=== PATIENT | female | born 1945 | race Caucasian/White ===

== ENCOUNTER 2016-11-28 15:42 | Emergency (ER) | payer MEDICARE, MEDICAID ==
[~2016-11-28] VITALS: Ht 162.6 cm; Wt 66.7 kg
[~2016-11-28 15:42] MED LIST: ALPR0.5T72 PO; ATOR40TA70 PO; CARB15DR2 OP; DCS100C PO; HYDR-3063 PO; LORA10TA7 PO; MAGN400T6 PO; NAPR220C11 PO; OXYM30SP NS; PSEU120T62 PO; RT-ALBUINH IH; [UNRECOGNIZED DRUG - CODE] PO
--- OUTSIDE RECORDS SUMMARY | 2016-11-28 15:47 | XMS REPORT ---
Author Author VICTORINA OSUNA [facility] eClinicalWorks Address Unknown Phone Unavailable Care Team Providers Care Inspector Grain Mill Products Name Role Phone VICTORINA OSUNA CP Unavailable Allergies, Adverse Reactions, Alerts Substance Reaction Event Type Sulfamethoxazole Info Not Available Drug Allergy Flagyl Info Not Available Drug Allergy Problems Problem Type Condition Code Onset Dates Condition Status Assessment Vertigo R42 Active Problem Other and unspecified hyperlipidemia 272.4 Active Problem Other chronic pain 338.29 Active Problem PTSD (post-traumatic stress disorder) F43.10 Active Problem Bipolar disorder with severe depression F31.4 Active Problem Unspecified mood [affective] disorder F39 Active Problem Benign paroxysmal positional vertigo 386.11 Active Problem Unspecified curvature of spine associated with other condition 737.9 Active Problem Encounter for dental examination Z01.20 Active Problem Low back pain without sciatica, unspecified back pain laterality M54.5 Active Medications Medication Code System Code Instructions Start Date End Date Status Dosage Refresh Optive [facility] [address]-55 0.5-0.9 % Ophthalmic as needed not defined Ventolin HFA [facility] 49031747985 108MCG/A INHALE ONE PUFF BY MOUTH EVERY 6 HOURS NEEDED Mucus Relief [facility] [address]-54 400 MG Orally every 4 hrs 1 tablet as needed Afrin Nasal [place] [facility] [address]-25 0.05 % Nasally Twice a day as needed 2 drops as needed Hydrocodone-Acetaminophen [facility] [address]-32 10-325 MG Orally 4 times a day December 08, 2014 1 tablet Pseudoephedrine HCl [facility] [address]-55 60 mg Orally every 6 hrs December 29, 2015 2 tablets as needed Tylenol ND 0 500 mg Oral Once a day 0.5 tab Atorvastatin Calcium [facility] 45199210625 40MG TAKE ONE TABLET BY MOUTH ONCE DAILY Senokot [facility] [address]-28 8.6 MG Orally Once a day as needed 1 tablet Alprazolam [facility] [address]-63 0.5 MG Orally twice a day December 08, 2014 1 tablet Loratadine [facility] [address]-51 10 MG Orally Once a day 1 tablet Lyrica [facility] [address]-88 50 mg Orally 2 times a day February 02, 2015 1 capsule Colace [facility] [address]-20 100 MG Orally Once a day as needed 1 capsule as needed Procedures Procedure Coding System Code Date Office Visit, Est Pt., Level 2 CPT-4 01072 May 24, 2016 [facility] VISIT ESTABLISHED PATIENT CPT-4 G0467 May 24, 2016 Vital Signs Date/Time: May 24, 2016 Cardiac Monitoring Heart Rate 76 bpm Weight 146 lbs Height 64 in BMI 25.06 Index Blood Pressure Diastolic 62 mmHg Blood Pressure Systolic 98 mmHg Results No Known Results Summary Purpose eClinicalWorks Submission
[2016-11-28] MEDS ORDERED: FAMOTIDINE 20MG/2ML IV (PEPCID) IVP ONE (16:15)
[2016-11-28 16:42] LABS: BILIRUBIN,URINE NEGATIVE (NEGATIVE); KETONES,URINE 1+ (NEGATIVE); LEUKOCYTE ESTERASE ,URINE 2+ (NEGATIVE); NITRITE,URINE NEGATIVE (NEGATIVE); PH,URINE 6 (5-9); PROTEIN,URINE NEGATIVE (NEGATIVE); UROBILINOGEN,URINE NORMAL (NORMAL)
[2016-11-28 16:55] LABS: SQUAMOUS EPITHELIAL CELL,UR 0-2 /HPF
[2016-11-28 17:14] LABS: BASOPHILS % (AUTO) 0 % (0-10); EOSINOPHILS # (AUTO) 0.1 10^3/uL (0.0-0.3); EOSINOPHILS % (AUTO) 1 % (0-10); LYMPHOCYTES # (AUTO) 0.9 X 10^3 (1.0-4.0); LYMPHOCYTES % (AUTO) 6 % (12-44); MEAN CORPUSCULAR HEMOGLOBIN 30 PG (25-34); MEAN CORPUSCULAR HGB CONC 34 G/DL (32-36); MEAN CORPUSCULAR VOLUME 90 FL (80-99); MEAN PLATELET VOLUME 11.2 FL (7.4-10.4); MONOCYTES # (AUTO) 0.5 X 10^3 (0.0-1.0); MONOCYTES % (AUTO) 3 % (0-12); NEUTROPHILS # (AUTO) 14.3 X 10^3 (1.8-7.8); NEUTROPHILS % (AUTO) 90 % (42-75); PLATELET COUNT 158 10^3/uL (130-400); RED BLOOD COUNT 4.67 10^6/uL (4.35-5.85); RED CELL DISTRIBUTION WIDTH 12.7 % (10.0-14.5); WHITE BLOOD COUNT 15.9 10^3/uL (4.3-11.0)
--- NOTE | 2016-11-28 17:27 | ED GI ---
General Chief Complaint: Abdominal/GI Problems Stated Complaint: N/V/D Nursing Triage Note: to ER by [facility] with reports of nausea. EMS administered 4mg Zofran and 1L NS FOREST NURSERY SUPERVISOR. Sepsis Screen: No Definite Risk Source of Information: Patient, EMS, RN Notes Reviewed Exam Limitations: No Limitations History of Present Illness Time Seen By Provider: 16:05 Initial Comments above and below. Patient's primary compliant is N/V; flu like symptoms. Denied diarrhea to me. Timing/Duration: 24 Hours Severity/Quality: Moderate Location: Epigastric Radiation: No Radiation Activities at Onset: None Modifying Factors: Worsens With Vomiting Associated Symptoms: Nausea/Vomiting, Weakness Allergies and Home Medications Allergies Coded Allergies: No Known Drug Allergies (Unverified , 10/23/14) Home Medications Albuterol Sulfate 1 Puff Puff, 1 PUFF IH NEEDED, (Reported) MDI Alprazolam 0.5 Mg Tab.rapdis, 1 EACH PO BID, (Reported) Atorvastatin Calcium 40 Mg Tablet, 40 MG PO DAILY, (Reported) Carboxymethylcellulos/Glycerin 5 Ml Drops, 5 ML OP NEEDED, (Reported) Ciprofloxacin HCl 500 Mg Tablet, 500 MG PO Q12H, #6 Ref 0 Prescribed by: ESTHER LÓPEZ on 11/28/161755 Docusate Sodium 100 Mg Cap, 100 MG PO NEEDED, (Reported) Famotidine 20 Mg Tablet, 20 MG PO BID, #10 Ref 0 Prescribed by: ESTHER LÓPEZ on 11/28/161755 Hydrocodone Bit/Acetaminophen 1 Each Tablet, 1 EACH PO QID, (Reported) Loratadine 10 Mg Tablet, 10 MG PO DAILY, (Reported) Magnesium Oxide 400 Mg Tablet, 2 EACH PO NEEDED, (Reported) Naproxen Sodium 220 Mg Capsule, 220 MG PO NEEDED, (Reported) Ondansetron HCl 4 Mg Tab, 4 MG PO Q6H PRN for NAUSEA/VOMITING, #10 Ref 0 Prescribed by: ESTHER LÓPEZ on 11/28/161755 Oxymetazoline Hcl 15 Ml [place], 2-3 SPRAY NS PER PACKAGE INSTR, (Reported) Pseudoephedrine Hcl 120 Mg Tablet.sa, 120 MG PO DAILY, (Reported) Sennosides 8.6 Mg Tablet, 8.6 MG PO NEEDED, (Reported) Review of Systems Constitutional: see HPI, weakness Gastrointestinal: See HPI, Denies Diarrhea, Nausea, Vomiting All Other Systems Reviewed Negative Unless Noted: Yes (Negative excepted noted.) Past Ifcdwib-Uutrch-Ljcgwi Hx Patient Social History Alcohol Use: Denies Use Recreational Drug Use: No Smoking Status: Never a Smoker 2nd Hand Smoke Exposure: No Recent Foreign Travel: No Contact w/Someone Who Travel: No Recent Infectious Disease Expo: No Recent Hopitalizations: No Immunizations Up To Date Tetanus Booster (TDap): Unknown Date of Pneumonia Vaccine: Oct 23, 2009 Seasonal Allergies Seasonal Allergies: Yes Surgeries HX Surgeries: Yes Surgeries: Bladder Surgery, Bowel Surgery, Hysterectomy Respiratory Hx Respiratory Disorders: Yes (asthma) Respiratory Disorders: COPD Cardiovascular Hx Cardiac Disorders: No Neurological Hx Neurological Disorders: No Gastrointestinal Hx Gastrointestinal Disorders: No Musculoskeletal Hx Musculoskeletal Disorders: Yes (arthritis) Endocrine Hx Endocrine Disorders: No Physical Exam Vital Signs Capillary Refill : Less Than 3 Seconds General Appearance: WD/WN, no apparent distress HEENT: normal ENT inspection Neck: normal inspection Respiratory: no respiratory distress Cardiovascular: regular rate, rhythm Gastrointestinal: soft, No guarding, No rebound, tenderness (mild; epigastric) Rectal: deferred Neurologic/Psychiatric: no motor/sensory deficits, alert, oriented x 3 Skin: warm/dry Focused Exam Lactic Acid Level Progress/Results/Core Measures Results/Orders Lab Results Laboratory Tests Test 11/28/16 16:30 11/28/16 17:02 Range/Units Urine Color YELLOW Urine Clarity CLEAR Urine pH 6 5-9 Urine Specific [place] 1.020 1.016-1.022 Urine Protein NEGATIVE NEGATIVE Urine Glucose (UA) NEGATIVE NEGATIVE Urine Ketones 1+ H NEGATIVE Urine Nitrite NEGATIVE NEGATIVE Urine Bilirubin NEGATIVE NEGATIVE Urine Urobilinogen NORMAL NORMAL MG/DL Urine Leukocyte Esterase 2+ H NEGATIVE Urine RBC (Auto) NEGATIVE NEGATIVE Urine RBC NONE /HPF Urine WBC 2-5 /HPF Urine Squamous Epithelial Cells 0-2 /HPF Urine Crystals NONE /LPF Urine Bacteria TRACE /HPF Urine Casts NONE /LPF Urine Mucus NEGATIVE /LPF Urine Culture Indicated NO White Blood Count 15.9 H 4.3-11.0 10^3/uL Red Blood Count 4.67 4.35-5.85 10^6/uL Hemoglobin 14.1 11.5-16.0 G/DL Hematocrit 42 35-52 % Mean Corpuscular Volume 90 80-99 FL Mean Corpuscular Hemoglobin 30 25-34 PG Mean Corpuscular Hemoglobin Concent 34 32-36 G/DL Red Cell Distribution Width 12.7 10.0-14.5 % Platelet Count 158 130-400 10^3/uL Mean Platelet Volume 11.2 H 7.4-10.4 FL Neutrophils (%) (Auto) 90 H 42-75 % Lymphocytes (%) (Auto) 6 L 12-44 % Monocytes (%) (Auto) 3 0-12 % Eosinophils (%) (Auto) 1 0-10 % Basophils (%) (Auto) 0 0-10 % Neutrophils # (Auto) 14.3 H 1.8-7.8 X 10^3 Lymphocytes # (Auto) 0.9 L 1.0-4.0 X 10^3 Monocytes # (Auto) 0.5 0.0-1.0 X 10^3 Eosinophils # (Auto) 0.1 0.0-0.3 10^3/uL Basophils # (Auto) 0.0 0.0-0.1 10^3/uL Neutrophils % (Manual) 88 % Lymphocytes % (Manual) 7 % Monocytes % (Manual) 1 % Eosinophils % (Manual) 0 % Basophils % (Manual) 0 % Band Neutrophils 4 % Blood Morphology Comment NORMAL Sodium Level 144 135-145 MMOL/L Potassium Level 4.2 3.6-5.0 MMOL/L Chloride Level 111 H 98-107 MMOL/L Carbon Dioxide Level 22 21-32 MMOL/L Anion Gap 11 5-14 MMOL/L Blood Urea Nitrogen 18 7-18 MG/DL Creatinine 0.86 0.60-1.30 MG/DL Estimat Glomerular Filtration Rate > 60 BUN/Creatinine Ratio 21 Glucose Level 107 H 70-105 MG/DL Calcium Level 8.9 8.5-10.1 MG/DL Total Bilirubin 0.8 0.1-1.0 MG/DL Aspartate Amino Transf (AST/SGOT) 18 5-34 U/L Alanine Aminotransferase (ALT/SGPT) 14 0-55 U/L Alkaline Phosphatase 74 40-136 U/L Total Protein 6.5 6.4-8.2 G/DL Albumin 4.1 3.2-4.5 G/DL Lipase 32 8-78 U/L Micro Results Microbiology 11/28/16 Influenza Types A,B Antigen (MARLA) - Final, Complete My Orders Orders - ESTHER LÓPEZ DO Cbc With Automated Diff (11/28/16 16:05) Comprehensive Metabolic Panel (11/28/16 16:05) Lipase (11/28/16 16:05) Ua Culture If Indicated (11/28/16 16:05) Influenza A And B Antigens (11/28/16 16:05) Famotidine Injection (Pepcid Injection) (11/28/16 16:15) Manual Differential (11/28/16 17:02) Iv Push Notching Press Operator Ed (11/28/16 ) Medications Given in ED Vital Signs/I&O Blood Pressure Mean: 101 Departure Impression Impression: Primary Impression: Gastritis Additional Impression: Nausea and vomiting Disposition: HOME, SELF-CARE Condition: Improved Departure-Patient Inst. Decision time for Depature: 17:53 Referrals: [facility] (PCP) Primary Care Physician VICTORINA OSUNA (Family) Primary Care Physician Patient Instructions: Gastritis (DC) Scripts Famotidine (Pepcid) 20 Mg Tablet 20 MG PO BID, #10 TAB 0 Refills Prov: ESTHER LÓPEZ DO 11/28/16 Ondansetron HCl (Zofran) 4 Mg Tab 4 MG PO Q6H Y for NAUSEA/VOMITING, #10 TAB 0 Refills Prov: ESTHER LÓPEZ DO 11/28/16 Ciprofloxacin HCl (Cipro) 500 Mg Tablet 500 MG PO Q12H, #6 TAB 0 Refills Prov: ESTHER LÓPEZ DO 11/28/16 ESTHER LÓPEZ DO Nov 28, 2016 17:27
[2016-11-28 17:30] LABS: ALANINE AMINOTRANSFERASE 14 U/L (0-55); ALBUMIN 4.1 G/DL (3.2-4.5); ANION GAP 11 MMOL/L (5-14); ASPARTATE AMINO TRANSFERASE 18 U/L (5-34); BILIRUBIN,TOTAL 0.8 MG/DL (0.1-1.0); BLOOD UREA NITROGEN 18 MG/DL (7-18); BUN/CREATININE RATIO 21; CALCIUM 8.9 MG/DL (8.5-10.1); CARBON DIOXIDE 22 MMOL/L (21-32); CHLORIDE 111 MMOL/L (98-107); CREATININE SERUM 0.86 MG/DL (0.60-1.30); GFR ESTIMATED > 60; GLUCOSE 107 MG/DL (70-105); LIPASE 32 U/L (8-78); POTASSIUM 4.2 MMOL/L (3.6-5.0); SODIUM 144 MMOL/L (135-145); TOTAL PROTEIN 6.5 G/DL (6.4-8.2)
[2016-11-28] MEDS ORDERED: CIPR-225 PO (17:56)
[2016-11-28] MEDS ORDERED: ONDN4T PO (17:56)
[2016-11-28] MEDS ORDERED: FAMO-119 PO (17:56)
[2016-11-28 18:08] VITALS: BP 130/80
[2016-11-28 18:27] LABS: BAND NEUTROPHILS 4 %; BASOPHILS % (MANUAL) 0 %; EOSINOPHILS % (MANUAL) 0 %; LYMPHOCYTES % (MANUAL) 7 %; NEUTROPHILS % (MANUAL) 88 %
== END 2016-11-28 18:08 | disposition home or self-care (01) ==
LOC: EDUNIT# 15:42 → ER 15:43
DX: R11.2 Nausea with vomiting, unspecified (principal); R19.7 Diarrhea, unspecified; H44.9 Unspecified disorder of globe; Z79.899 Other long term (current) drug therapy
CPT/HCPCS: 36415; 80053; 81000; 83690; 85007; 85027; 87804; 96374

== ENCOUNTER → 2017-01-31 | Outpatient (CLI) | payer MEDICARE, MEDICAID ==
[~2017-01-31] MED LIST changes: +CIPR-225 PO; +FAMO-119 PO; +ONDN4T PO
== END ==
LOC: RAD 10:49
PROVIDERS: ATTEND Nurse Practitioner Community Health
DX: Z12.31 Encounter for screening mammogram for malignant neoplasm of breast (principal)
CPT/HCPCS: 77067

== ENCOUNTER 2017-11-18 04:56 | Emergency (ER) | payer MEDICARE, MEDICAID ==
[~2017-11-18] VITALS: Ht 162.6 cm; Wt 64.9 kg
--- OUTSIDE RECORDS SUMMARY | 2017-11-18 05:02 | XMS REPORT ---
Author Author VICTORINA OSUNA [facility] eClinicalWorks Address Unknown Phone Unavailable Care Team Providers Care Certified Wellness Program Manager Name Role Phone VICTORINA OSUNA CP Unavailable [...] Date End Date Status Dosage Refresh Optive [facility] [address]-40 0.5-0.9 % Ophthalmic as needed not defined Ventolin HFA [facility] 64261432641 108MCG/A INHALE ONE PUFF BY MOUTH EVERY 6 HOURS NEEDED Mucus Relief [facility] [address]-02 400 MG Orally every 4 hrs 1 tablet as needed Afrin Nasal [place] [facility] [address]-79 0.05 % Nasally Twice a day as needed 2 drops as needed Hydrocodone-Acetaminophen [facility] [address]-00 10-325 MG Orally 4 times a day December 08, 2014 1 tablet Pseudoephedrine HCl [facility] [address]-69 60 mg Orally every 6 hrs December 29, 2015 2 tablets as needed Tylenol ND 0 500 mg Oral Once a day 0.5 tab Atorvastatin Calcium [facility] 30434649173 40MG TAKE ONE TABLET BY MOUTH ONCE DAILY Senokot [facility] [address]-01 8.6 MG Orally Once a day as needed [address] [facility] [address]-70 0.5 MG Orally twice a day December 08, [address] [facility] [address]-01 10 MG Orally Once a day [address] [facility] [address]-24 50 mg Orally 2 times a day February 02, [address] [facility] [address]-44 100 MG Orally Once a day as needed 1 capsule as needed Procedures Procedure Coding System Code Date Office Visit, Est Pt., Level 2 CPT-4 71705 May 24, 2016 [facility] VISIT ESTABLISHED PATIENT CPT-4 G0467 May 24, 2016 Vital Signs Date/Time: May 24, 2016 Cardiac Monitoring Heart Rate 76 bpm Weight 146 lbs Height 64 in BMI 25.06 Index Blood Pressure Diastolic 62 mmHg Blood Pressure Systolic 98 mmHg Results No Known Results Summary Purpose eClinicalWorks Submission
--- OUTSIDE RECORDS SUMMARY | 2017-11-18 05:02 | XMS REPORT ---
Author Author VICTORINA OSUNA [facility] Address [address] [place] [address] Care Team Providers Care Nuclear Power Plant Engineer Name Role Phone VICTORINA OSUNA Unavailable PROBLEMS Type Condition ICD9-CM Code OMC25-DT Code Onset Dates Condition Status SNOMED Code Problem Unspecified mood [affective] disorder F39 Active 486591761 Problem Somnolence R40.0 Active 284991466 Problem Sinusitis, unspecified chronicity, unspecified location J32.9 Active 02152916 Problem Other chronic pain G89.29 Active 88963237 Problem Mononeuropathy, unspecified G58.9 Active 804002137 Problem Medicare annual wellness visit, initial Z00.00 Active 318893767 Problem Dysthymic disorder F34.1 Active 55091426 Problem Reactive airway disease, unspecified asthma severity, uncomplicated J45.909 Active 251238349333 Problem History of colon polyps Z86.010 Active 986292176 Problem Low back pain without sciatica, unspecified back pain laterality M54.5 Active 340428879 Problem Encounter for dental examination Z01.20 Active 840080786 Problem Bipolar disorder with severe depression F31.4 Active 702242500 Problem Mixed hyperlipidemia E78.2 Active 062040677 Problem PTSD (post-traumatic stress disorder) F43.10 Active 01709441 ALLERGIES Substance Reaction Event Type Date Status Sulfamethoxazole-Trimethoprim Unknown Drug Allergy January, Active Flagyl Unknown Drug Allergy January, Active SOCIAL HISTORY Never Assessed PLAN OF CARE Activity Details Follow Up annually for preventive care, sooner for chronic health maintenance , 4 Weeks Reason:back pain VITAL SIGNS Height 64 in 2017-01-25 Weight 146.4 lbs 2017-01-25 Temperature 97.3 degrees Fahrenheit 2017-01-25 Heart Rate 60 bpm 2017-01-25 Respiratory Rate 18 2017-01-25 BMI 25.13 kg/m2 2017-01-25 Blood pressure systolic 100 mmHg 2017-01-25 Blood pressure diastolic 70 mmHg 2017-01-25 MEDICATIONS Medication Instructions Dosage Frequency Start Date End Date Duration Status Atorvastatin Calcium 40 MG TAKE ONE TABLET BY MOUTH ONCE DAILY 30 Active Afrin Nasal [place] 0.05 % Nasally Twice a day as needed 2 drops as needed Active Mucus Relief 400 MG Orally every 4 hrs 1 tablet as needed 4h Active Refresh Optive 0.5-0.9 % Ophthalmic as needed Active Alprazolam 0.5 MG Orally Twice a day 1 tablet as needed 12h 28 Jul, 2016 28 days Active Senokot 8.6 MG Orally Once a day as needed 1 tablet Active Tylenol 500 mg Oral Once a day 0.5 tab 24h Active Ventolin HFA 108MCG/A INHALE ONE PUFF BY MOUTH EVERY 6 HOURS NEEDED 50 Active Hydrocodone-Acetaminophen 10-325 MG Orally 4 times a day 1 tablet as needed 6h Nov, 28 days Active Loratadine 10 MG Orally Once a day 1 tablet 24h Active Lyrica 50 MG Orally 2 times a day 1 capsule 12h January, 28 days Active Pseudoephedrine HCl 60 MG Orally every 6 hrs 2 tablets as needed 6h 12 Dec 07 days Active RESULTS Name Result Date Reference Range Mammogram, Bilateral Screening 2017-01-31 PROCEDURES Procedure Date Ordered Result Body Site ANNUAL LAURI VST; PERSNL PPS INIT January 25, 2017 IMMUNIZATIONS No Known Immunizations MEDICAL (GENERAL) HISTORY Type Description Date Medical History colonic polyps Medical History asthma Medical History diverticulosis Medical History Arthritis Medical History chronic pain Medical History scoliosis Medical History degenerative disease lumbosacral spine Medical History depression Medical History Anxiety disorder Medical History Eye: holes in retina, macular hole, hx of cataracts, prerenital membrane bialt, photocoagualtion bilaterade ([place]hend) Medical History osteopenia: bone density 06-01-10 Medical History Low blood pressure Surgical History cataract removal 2013 Surgical History colonoscopy 2010 Surgical History cholecystectomy Surgical History sinus surgery 2011 Surgical History appendectomy 1974 Surgical History rectocele repair w/ transvaginal mesh Surgical History hysterectomy Surgical History colon resection Surgical History cataract surgery both eyes 03/2015 Hospitalization History surgeries
--- OUTSIDE RECORDS SUMMARY | 2017-11-18 05:02 | XMS REPORT ---
Author Author VICTORINA OSUNA [facility] Address [address] [place] [address] Care Team Providers Care Oral Surgery Technician Name Role Phone VICTORINA OSUNA Unavailable PROBLEMS Type Condition ICD9-CM Code QWY10-FD Code Onset Dates Condition Status SNOMED Code Problem Unspecified mood [affective] disorder F39 Active 464537958 Problem Somnolence R40.0 Active 678882156 Problem Sinusitis, unspecified chronicity, unspecified location J32.9 Active 27796799 Problem Other chronic pain G89.29 Active 89432461 Problem Mononeuropathy, unspecified G58.9 Active 727150356 Problem Medicare annual wellness visit, initial Z00.00 Active 156289404 Problem Dysthymic disorder F34.1 Active 93252149 Problem Reactive airway disease, unspecified asthma severity, uncomplicated J45.909 Active 975372557408 Problem History of colon polyps Z86.010 Active 976247794 Problem Low back pain without sciatica, unspecified back pain laterality M54.5 Active 090032138 Problem Encounter for dental examination Z01.20 Active 562256113 Problem Bipolar disorder with severe depression F31.4 Active 669542813 Problem Mixed hyperlipidemia E78.2 Active 800744517 Problem PTSD (post-traumatic stress disorder) F43.10 Active 82624875 ALLERGIES No Information SOCIAL HISTORY Never Assessed PLAN OF CARE VITAL SIGNS MEDICATIONS Medication Instructions Dosage Frequency Start Date End Date Duration Status Neurontin 100 mg Orally at bedtime 1 tablet Feb, 30 days Active RESULTS No Results PROCEDURES No Known procedures IMMUNIZATIONS No Known Immunizations MEDICAL (GENERAL) HISTORY [...]
--- OUTSIDE RECORDS SUMMARY | 2017-11-18 05:02 | XMS REPORT ---
Author Author VICTORINA OSUNA Organization eClinicalWorks Address Unknown Phone Unavailable Care Team Providers Care Cigar Machine Feeder Name Role Phone VICTORINA OSUNA CP Unavailable Allergies No Known Allergies Problems Problem Type Condition Code Onset Dates Condition Status Assessment Back pain 724.5 Active Problem Other and unspecified hyperlipidemia 272.4 Active Problem Other chronic pain 338.29 Active Assessment Low back pain without sciatica, unspecified back pain laterality M54.5 Active Problem PTSD (post-traumatic stress disorder) F43.10 [...] Instructions Start Date End Date Status Dosage Lyrica [facility] [address]-53 50 mg Orally Twice a day February 02, 2015 1 capsule Results No Known Results Summary Purpose eClinicalWorks Submission
--- OUTSIDE RECORDS SUMMARY | 2017-11-18 05:03 | XMS REPORT ---
Author Author VICTORINA OSUNA Organization eClinicalWorks Address Unknown Phone Unavailable Care Team Providers Care Planning Intern Name Role Phone VICTORINA OSUNA CP Unavailable Allergies No Known Allergies Problems Problem Type Condition Code Onset Dates Condition Status Problem Other chronic pain 338.29 Active Problem Unspecified curvature of spine associated with other condition 737.9 Active Problem Other and unspecified hyperlipidemia 272.4 Active Problem Unspecified mood [affective] disorder F39 Active Problem PTSD (post-traumatic stress disorder) F43.10 Active Problem Sinusitis, unspecified chronicity, unspecified location J32.9 Active Problem Low back pain without sciatica, unspecified back pain laterality M54.5 Active Problem Benign paroxysmal positional vertigo 386.11 Active Problem Bipolar disorder with severe depression F31.4 Active Problem Encounter for dental examination Z01.20 Active Medications Medication Code System Code Instructions Start Date End Date Status Dosage Pseudoephedrine HCl [facility] [address]-27 60 mg Orally every 6 hrs December 29, 2015 2 tablets as needed Results No Known Results Summary Purpose eClinicalWorks Submission
--- OUTSIDE RECORDS SUMMARY | 2017-11-18 05:03 | XMS REPORT ---
Author Author VICTORINA OSUNA [facility] eClinicalWorks Address Unknown Phone Unavailable Care Team Providers Care Breast Buffer Name Role Phone VICTORINA OSUNA CP Unavailable Allergies, Adverse Reactions, Alerts Substance Reaction Event Type Sulfamethoxazole Info Not Available Drug Allergy Flagyl Info Not Available Drug Allergy Problems Problem Type Condition Code Onset Dates Condition Status Problem Other chronic pain 338.29 Active Problem Unspecified curvature of spine associated with other condition 737.9 Active Problem Other and unspecified hyperlipidemia 272.4 Active Assessment Bronchitis J40 Active Assessment Sinusitis, unspecified chronicity, unspecified location J32.9 Active Problem Unspecified mood [affective] disorder F39 [...] Start Date End Date Status Dosage Lyrica [facility] [address]-61 50 mg Orally 2 times a day February 02, 2015 1 capsule Hydrocodone-Acetaminophen [facility] [address]-13 10-325 MG Orally 4 times a day December 08, [address] [facility] [address]-77 100 MG Orally Once a day as needed 1 capsule as needed Pseudoephedrine HCl [facility] [address]-93 60 mg Orally every 6 hrs December 29, 2015 2 tablets as needed Alprazolam [facility] [address]-49 0.5 MG Orally twice a day December 08, 2014 1 tablet Mucus Relief [facility] [address]-23 400 MG Orally every 4 hrs 1 tablet as needed Tylenol [facility] 0 500 mg Oral Once a day 0.5 tab Refresh Optive [facility] [address]-46 0.5-0.9 % Ophthalmic as needed not defined Loratadine [facility] [address]-19 10 MG Orally Once a day [address] [facility] [address]-27 500 MG Orally Once a day Jul 11, 2016 Jul 21, 2016 1 tablet Ventolin HFA [facility] 54307803918 108MCG/A INHALE ONE PUFF BY MOUTH EVERY 6 HOURS NEEDED Atorvastatin Calcium [facility] [address]-83 40MG TAKE ONE TABLET BY MOUTH ONCE DAILY Senokot [facility] [address]-54 8.6 MG Orally Once a day as needed 1 tablet Procedures Procedure Coding System Code Date Office Visit, Est Pt., Level 3 CPT-4 41022 Jul 11, 2016 [facility] VISIT ESTABLISHED PATIENT CPT-4 G0467 Jul 11, 2016 Vital Signs Date/Time: Jul 11, 2016 Cardiac Monitoring Heart Rate 72 bpm Weight 146.5 lbs Height 64 in BMI 25.14 Index Blood Pressure Diastolic 66 mmHg Blood Pressure Systolic 108 mmHg Results No Known Results Summary Purpose eClinicalWorks Submission
--- OUTSIDE RECORDS SUMMARY | 2017-11-18 05:03 | XMS REPORT ---
Author Author VICTORINA OSUNA Organization eClinicalWorks Address Unknown Phone Unavailable Care Team Providers Care Maintenance Mechanic 2Nd Shift Name Role Phone VICTORINA OSUNA CP Unavailable Allergies No Known Allergies Problems Problem Type Condition Code Onset Dates Condition Status Problem Benign paroxysmal positional vertigo 386.11 Active Problem Unspecified curvature of spine associated with other condition 737.9 Active Problem Major depressive disorder, recurrent episode, moderate F33.1 Active Problem Other and unspecified hyperlipidemia 272.4 Active Problem Other chronic pain 338.29 Active Medications Medication Code System Code Instructions Start Date End Date Status Dosage Alprazolam [facility] [address]-70 0.5 MG December 08, 2014 1 Tablet by Oral route 2 times per day Hydrocodone-Acetaminophen [facility] [address]-83 10-325 MG Orally December 08, 2014 1 Tablet by Oral route 4 times per day PRN for pain Results No Known Results Summary Purpose eClinicalWorks Submission
--- OUTSIDE RECORDS SUMMARY | 2017-11-18 05:03 | XMS REPORT ---
Author Author VICTORINA OSUNA Organization [employer] Address Unknown Phone Unavailable Care Team Providers Care Meter Mechanic Name Role Phone VICTORINA OSUNA CP Unavailable Allergies No Known Allergies Problems Problem Type Condition Code Onset Dates Condition Status Problem Other and unspecified hyperlipidemia 272.4 Active [...] unspecified back pain laterality M54.5 Active Medications No Known Medications Results No Known Results Summary Purpose eClinicalWorks Submission
--- OUTSIDE RECORDS SUMMARY | 2017-11-18 05:03 | XMS REPORT ---
Author Author VICTORINA OSUNA Organization [employer] Address Unknown Phone Unavailable Care Team Providers Care Head Bucker Name Role Phone VICTORINA OSUNA CP Unavailable [...] Start Date End Date Status Dosage Alprazolam [facility] [address]-95 0.5 MG Orally twice a day December 08, 2014 1 tablet Hydrocodone-Acetaminophen [facility] [address]-41 10-325 MG Orally 4 times a day December 08, 2014 1 tablet Results No Known Results Summary Purpose eClinicalWorks Submission
--- OUTSIDE RECORDS SUMMARY | 2017-11-18 05:03 | XMS REPORT ---
Author Author VICTORINA OSUNA Organization [employer] Address Unknown Phone Unavailable Care Team Providers Care Fire Protection Engineering Technician Name Role Phone VICTORINA OSUNA CP Unavailable Allergies No Known Allergies Problems Problem Type Condition ICD-9 Code Onset Dates Condition Status Problem Benign paroxysmal positional vertigo 386.11 Active Problem Unspecified curvature of spine associated with other condition 737.9 Active Problem Dysthymic disorder 300.4 Active Problem Other chronic pain 338.29 Active Assessment Back pain 724.5 Active Problem Major depressive disorder, recurrent episode, moderate 296.32 Active Problem Other and unspecified hyperlipidemia 272.4 Active Medications No Known Medications Procedures Procedure Coding System Code Date No Charge CPT-4 07960 May 18, 2015 Results No Known Results Summary Purpose [employer]ClinicalWorks Submission
--- OUTSIDE RECORDS SUMMARY | 2017-11-18 05:03 | XMS REPORT ---
Author Author MARA DELATORRE Organization [employer] Address Unknown Phone Unavailable Care Team Providers Care Tubing Assembler Name Role Phone MARA DELATORRE CP Unavailable Allergies No Known Allergies Problems Problem Type Condition ICD-9 Code Onset Dates Condition Status Problem Benign paroxysmal positional vertigo 386.11 Active Problem Unspecified curvature of spine associated with other condition 737.9 Active Problem Dysthymic disorder 300.4 Active Problem Other chronic pain 338.29 Active Assessment Major depressive disorder, recurrent episode, moderate 296.32 Active Problem Major depressive disorder, recurrent episode, moderate 296.32 Active Problem Other and unspecified hyperlipidemia 272.4 Active Medications No Known Medications Procedures Procedure Coding System Code Date Psychotherapy, patient &/family, 30 minutes, established patient CPT-4 42773 May 21, 2015 [facility] VISIT MENTAL HEALTH ESTAB PT CPT-4 G0470 May 21, 2015 Results No Known Results Summary Purpose eClinicalWorks Submission
--- OUTSIDE RECORDS SUMMARY | 2017-11-18 05:03 | XMS REPORT ---
Author Author MARA DELATORRE Organization [employer] Address Unknown Phone Unavailable Care Team Providers Care Search Lead Name Role Phone MARA DELATORRE CP Unavailable Allergies No Known Allergies Problems Problem Type Condition Code Onset Dates Condition Status Assessment Severe episode of recurrent major depressive disorder, without psychotic features F33.2 Active Problem Other and unspecified hyperlipidemia 272.4 [...] laterality M54.5 Active Medications No Known Medications Procedures Procedure Coding System Code Date Psychotherapy, patient &/family, 30 minutes, established patient CPT-4 49289 Oct 22, 2015 [facility] VISIT MENTAL HEALTH ESTAB PT CPT-4 G0470 Oct 22, 2015 Results No Known Results Summary Purpose eClinicalWorks Submission
--- OUTSIDE RECORDS SUMMARY | 2017-11-18 05:03 | XMS REPORT ---
Author Author VICTORINA OSUNA Organization [employer] Address Unknown Phone Unavailable Care Team Providers Care Lan Specialist Name Role Phone VICTORINA OSUNA CP Unavailable Allergies No Known Allergies Problems Problem Type Condition Code Onset Dates Condition Status Problem Low back pain without sciatica, unspecified back pain laterality M54.5 Active Problem Major depressive disorder, recurrent episode, moderate F33.1 Active Problem Encounter for dental examination Z01.20 Active Problem Other and unspecified hyperlipidemia 272.4 Active Problem Other chronic pain 338.29 Active Problem Benign paroxysmal positional vertigo 386.11 Active Problem Unspecified curvature of spine associated with other condition 737.9 Active Medications No Known Medications Results No Known Results Summary Purpose eClinicalWorks Submission
--- OUTSIDE RECORDS SUMMARY | 2017-11-18 05:03 | XMS REPORT ---
Author Author VICTORINA OSUNA Organization [employer] Address Unknown Phone Unavailable Care Team Providers Care Casing Flusher Name Role Phone VICTORINA OSUNA CP Unavailable [...] Start Date End Date Status Dosage Alprazolam [facility] [address]-70 0.5 MG December 08, 2014 1 Tablet by Oral route 2 times per day Hydrocodone-Acetaminophen [facility] [address]-31 10-325 MG Orally RX to be filled on 07/20/15 December 08, 2014 1 Tablet by Oral route 4 times per day PRN for pain Results No Known Results Summary Purpose eClinicalWorks Submission
--- OUTSIDE RECORDS SUMMARY | 2017-11-18 05:03 | XMS REPORT ---
Author Author VICTORINA OSUNA Organization [employer] Address Unknown Phone Unavailable Care Team Providers Care Phlebotomy Specialist Name Role Phone VICTORINA OSUNA CP [...] Instructions Start Date End Date Status Dosage Sudafed [facility] [address]-26 60 MG Orally PRN February 02, 2015 2 tablet as needed Results No Known Results Summary Purpose eClinicalWorks Submission
--- OUTSIDE RECORDS SUMMARY | 2017-11-18 05:03 | XMS REPORT ---
Author Author VICTORINA OSUNA [facility] Address [address] [place] [address] Care Team Providers Care Crm Developer Name Role Phone VICTORINA OSUNA Unavailable PROBLEMS Type Condition ICD9-CM Code [id number] Code Onset Dates Condition Status SNOMED Code Problem Other chronic pain 338.29 Active 46792451 Problem Unspecified curvature of spine associated with other condition 737.9 Active 70072369 Problem Other and unspecified hyperlipidemia 272.4 Active 08711776 Assessment Vertigo R42 Apr, Active 449987112 Assessment Fatigue, unspecified type R53.83 Apr, Active 15632329 Problem Unspecified mood [affective] disorder F39 Active 757114105 Problem PTSD (post-traumatic stress disorder) F43.10 Active 90191549 Problem Low back pain without sciatica, unspecified back pain laterality M54.5 Active 173853486 Problem Benign paroxysmal positional vertigo 386.11 Active 258139904 Problem Bipolar disorder with severe depression F31.4 Active 226740922 Problem Encounter for dental examination Z01.20 Active 126066035 ALLERGIES Substance Reaction Event Type Date Status Sulfamethoxazole Unknown Drug Allergy Apr, Active Flagyl Unknown Drug Allergy Apr, Active SOCIAL HISTORY No smoking Hx information available PLAN OF CARE VITAL SIGNS Height 64 in 2016-05-09 Weight 145.0 lbs 2016-05-09 Heart Rate 72 bpm 2016-05-09 Respiratory Rate 18 2016-05-09 BMI 24.89 kg/m2 2016-05-09 Blood pressure systolic 118 mmHg 2016-05-09 Blood pressure diastolic 80 mmHg 2016-05-09 MEDICATIONS Medication Instructions Dosage Frequency Start Date End Date Duration Status Atorvastatin Calcium 40MG TAKE ONE TABLET BY MOUTH ONCE DAILY 30 Active Loratadine 10 MG Orally Once a day 1 tablet 24h Active Senokot 8.6 MG Orally Once a day as needed 1 tablet Active Ventolin HFA 108MCG/A INHALE ONE PUFF BY MOUTH EVERY 6 HOURS NEEDED 50 Active Lyrica 50 mg Orally Twice a day 1 capsule 12h January, Active Alprazolam 0.5 MG Orally twice a day 1 tablet 12h Nov, 28 days Active Afrin Nasal [place] 0.05 % Nasally Twice a day as needed 2 drops as needed Active Tylenol 500 mg Oral Once a day 0.5 tab 24h Active Colace 100 MG Orally Once a day as needed 1 capsule as needed Active Hydrocodone-Acetaminophen 10-325 MG Orally 4 times a day 1 tablet 6h Nov 28 days Active Refresh Optive 0.5-0.9 % Ophthalmic as needed Active Mucus Relief 400 MG Orally every 4 hrs 1 tablet as needed 4h Active Pseudoephedrine HCl 60 mg Orally every 6 hrs 2 tablets as needed 6h Dec 7 Active RESULTS Name Result Date Reference Range TSH 2016-05-09 TSH 1.380 0.450-4.500 CBC 2016-05-09 WBC 9.8 3.4-10.8 RBC 4.41 3.77-5.28 Hemoglobin 12.9 11.1-15.9 Hematocrit 39.4 34.0-46.6 MCV 89 79-97 MCH 29.3 26.6-33.0 MCHC 32.7 31.5-35.7 RDW 13.6 12.3-15.4 Platelets 169 150-379 Neutrophils 64 Lymphs 28 Monocytes 5 Eos 3 Basos 0 Immature Cells Neutrophils (Absolute) 6.2 1.4-7.0 Lymphs (Absolute) 2.7 0.7-3.1 Monocytes(Absolute) 0.5 0.1-0.9 Eos (Absolute) 0.3 0.0-0.4 Baso (Absolute) 0.0 0.0-0.2 Immature Granulocytes 0 Immature Grans (Abs) 0.0 0.0-0.1 NRBC Hematology Comments: CMP 2016-05-09 Glucose, Serum 98 65-99 BUN 15 8-27 Creatinine, Serum 0.90 0.57-1.00 eGFR If NonAfricn Am 65 >59 eGFR If Africn Am 74 >59 BUN/Creatinine Ratio 17 11-26 Sodium, Serum 142 134-144 Potassium, Serum 4.1 3.5-5.2 Chloride, Serum 102 97-108 Carbon Dioxide, Total 25 18-29 Calcium, Serum 9.7 8.7-10.3 Protein, Total, Serum 6.4 6.0-8.5 Albumin, Serum 4.4 3.5-4.8 Globulin, Total 2.0 1.5-4.5 A/G Ratio 2.2 1.1-2.5 Bilirubin, Total 0.5 0.0-1.2 Alkaline Phosphatase, S 80 39-117 AST (SGOT) 18 0-40 ALT (SGPT) 11 0-32 PROCEDURES Procedure Date Ordered Related Diagnosis Body Site [facility] May [facility], 2016 [facility] ESTABLISHED PATIENT May 09, 2016 VENIPUNCT, ROUTINE* May 09, 2016 Office Visit, Est Pt., Level 3 May 09, 2016 IMMUNIZATIONS No Known Immunizations
--- OUTSIDE RECORDS SUMMARY | 2017-11-18 05:03 | XMS REPORT ---
Author Author VICTORINA OSUNA Organization [employer] Address Unknown Phone Unavailable Care Team Providers Care Restaurant Area Manager Name Role Phone VICTORINA OSUNA CP [...] Start Date End Date Status Dosage Lyrica [facility] [address]-35 50 MG Orally Twice a day February 02, 2015 1 capsule Results No Known Results Summary Purpose eClinicalWorks Submission
--- OUTSIDE RECORDS SUMMARY | 2017-11-18 05:03 | XMS REPORT ---
Author Author VICTORINA OSUNA Organization [employer] Address Unknown Phone Unavailable Care Team Providers Care Pulmonologist Intensivist Name Role Phone VICTORINA OSUNA CP Unavailable Allergies No Known Allergies Problems Problem Type Condition Code Onset Dates Condition Status Problem Encounter for dental examination Z01.20 Active Problem Low back pain without sciatica, unspecified back pain laterality M54.5 Active Problem Unspecified mood [affective] disorder F39 Active Problem Other and unspecified hyperlipidemia 272.4 Active Problem Other chronic pain 338.29 Active Problem Benign paroxysmal positional vertigo 386.11 Active Problem Unspecified curvature of spine associated with other condition 737.9 Active Medications Medication Code System Code Instructions Start Date End Date Status Dosage Divalproex Sodium ER [facility] [address]-12 500 MG Orally at bedtime Oct 26, 2015 1 tablet Results No Known Results Summary Purpose eClinicalWorks Submission
--- OUTSIDE RECORDS SUMMARY | 2017-11-18 05:04 | XMS REPORT ---
Author Author VICTORINA OSUNA Organization [employer] Address Unknown Phone Unavailable Care Team Providers Care Mother Tester Name Role Phone VICTORINA OSUNA CP Unavailable Allergies No Known Allergies Problems Problem Type Condition Code Onset Dates Condition Status Problem Major depressive disorder, recurrent episode, moderate F33.1 Active Problem Benign paroxysmal positional vertigo 386.11 Active Problem Low back pain without sciatica, unspecified back pain laterality M54.5 Active Problem Other chronic pain 338.29 Active Assessment Low back pain without sciatica, unspecified back pain laterality M54.5 Active Problem Unspecified curvature of spine associated with other condition 737.9 Active Problem Other and unspecified hyperlipidemia 272.4 Active Medications No Known Medications Procedures Procedure Coding System Code Date No Charge CPT-4 23576 Aug 28, 2015 Results No Known Results Summary Purpose eClinicalWorks Submission
--- OUTSIDE RECORDS SUMMARY | 2017-11-18 05:04 | XMS REPORT ---
Author Author VICTORINA OSUNA [facility] Address [address] [place] [address] Care Team Providers Care Job Placement Specialist Name Role Phone VICTORINA OSUNA Unavailable PROBLEMS Type Condition ICD9-CM Code [id number] Code Onset Dates Condition Status SNOMED Code Problem Bipolar disorder with severe depression F31.4 Active 265905326 Problem Sinusitis, unspecified chronicity, unspecified location J32.9 Active 52251861 Problem Unspecified mood [affective] disorder F39 Active 530524030 Problem Mononeuropathy, unspecified G58.9 Active 453183830 Problem Reactive airway disease, unspecified asthma severity, uncomplicated J45.909 Active 179128938469 Problem Dysthymic disorder F34.1 Active 40564486 Problem Somnolence R40.0 Active 520087233 Problem History of colon polyps Z86.010 Active 948481745 Problem Medicare annual wellness visit, initial Z00.00 Active 350481591 Problem Mixed hyperlipidemia E78.2 Active 378592827 Problem Unspecified curvature of spine associated with other condition 737.9 Active 74245543 Problem Other and unspecified hyperlipidemia 272.4 Active 55916444 Problem Low back pain without sciatica, unspecified back pain laterality M54.5 Active 863632355 Problem Benign paroxysmal positional vertigo 386.11 Active 736436268 Problem Encounter for dental examination Z01.20 Active 213153783 Problem Other chronic pain 338.29 Active 73926488 Problem PTSD (post-traumatic stress disorder) F43.10 Active 53959876 ALLERGIES No Information SOCIAL HISTORY Never Assessed PLAN OF CARE VITAL SIGNS MEDICATIONS Medication Instructions Dosage Frequency Start Date End Date Duration Status Hydrocodone-Acetaminophen 10-325 MG Orally 4 times a day 1 tablet as needed 6h 17 Nov, 2016 28 days Active Lyrica 50 MG Orally 2 times a day 1 capsule 12h January, 28 days Active Alprazolam 0.5 MG Orally Twice a day 1 tablet as needed 12h 28 Jul, 2016 28 days Active RESULTS No Results PROCEDURES No [...]
--- OUTSIDE RECORDS SUMMARY | 2017-11-18 05:04 | XMS REPORT ---
Author Author VICTORINA OSUNA Organization [employer] Address Unknown Phone Unavailable Care Team Providers Care Lamp Cleaner Name Role Phone VICTORINA OSUNA CP Unavailable [...]
--- OUTSIDE RECORDS SUMMARY | 2017-11-18 05:04 | XMS REPORT ---
Author Author VICTORINA OSUNA Organization [employer] Address Unknown Phone Unavailable Care Team Providers Care Mechanic'S Assistant Name Role Phone VICTORINA OSUNA CP Unavailable Allergies No Known Allergies Problems Problem Type Condition ICD-9 Code Onset Dates Condition Status Problem Benign paroxysmal positional vertigo 386.11 Active Problem Unspecified curvature of spine associated with other condition 737.9 Active Problem Dysthymic disorder 300.4 Active Problem Other chronic pain 338.29 Active Problem Major depressive disorder, recurrent episode, moderate 296.32 Active Problem Other and unspecified hyperlipidemia 272.4 Active Medications Medication Code System Code Instructions Start Date End Date Status Dosage Alprazolam [facility] [address]-14 0.5 MG Refill on 05/22/15 d/t Holiday November 1 Tablet by Oral route 2 times per day Results No Known Results Summary Purpose eClinicalWorks Submission
--- OUTSIDE RECORDS SUMMARY | 2017-11-18 05:04 | XMS REPORT ---
Author Author VICTORINA OSUNA [facility] Address [address] [place] [address] Care Team Providers Care Forest Aide Name Role Phone VICTORINA OSUNA Unavailable PROBLEMS Type Condition ICD9-CM Code [id number] Code Onset Dates Condition Status SNOMED Code Problem Unspecified mood [affective] disorder F39 Active 246656201 Problem Somnolence R40.0 Active 694552976 Problem Sinusitis, unspecified chronicity, unspecified location J32.9 Active 24621506 Problem Other chronic pain G89.29 Active 10025528 Problem Mononeuropathy, unspecified G58.9 Active 637494517 Problem Medicare annual wellness visit, initial Z00.00 Active 478847365 Problem Dysthymic disorder F34.1 Active 58124412 Problem Reactive airway disease, unspecified asthma severity, uncomplicated J45.909 Active 395676559574 Problem History of colon polyps Z86.010 Active 150309366 Problem Low back pain without sciatica, unspecified back pain laterality M54.5 Active 495402484 Problem Encounter for dental examination Z01.20 Active 765855449 Problem Bipolar disorder with severe depression F31.4 Active 933222010 Problem Mixed hyperlipidemia E78.2 Active 548117933 Problem PTSD (post-traumatic stress disorder) F43.10 Active 56546932 ALLERGIES No Information SOCIAL HISTORY Never Assessed PLAN OF CARE VITAL SIGNS MEDICATIONS Medication Instructions Dosage Frequency Start Date End Date Duration Status Lyrica 50 MG Orally 2 times a day 1 capsule 12h 18 Jan, 2015 28 days Active Hydrocodone-Acetaminophen 10-325 MG Orally 4 times a day 1 tablet as needed 6h 14 Jan, 2017 28 days Active Alprazolam 0.5 MG Orally [...]
--- OUTSIDE RECORDS SUMMARY | 2017-11-18 05:04 | XMS REPORT ---
Author Author VICTORINA OSUNA Organization eClinicalWorks Address Unknown Phone Unavailable Care Team Providers Care Clinical Documentation Improvement Specialist Name Role Phone VICTORINA OSUNA CP [...] Instructions Start Date End Date Status Dosage Hydrocodone-Acetaminophen [facility] [place] [place] [address]-99 10-325 MG Orally December 08, 2014 1 Tablet by Oral route 4 times per day PRN for pain Alprazolam [facility] [place] [address]-29 0.5 MG December 08, 2014 1 Tablet by Oral route 2 times per day Results No Known Results Summary Purpose eClinicalWorks Submission
--- OUTSIDE RECORDS SUMMARY | 2017-11-18 05:04 | XMS REPORT ---
Author Author SERENA JORDAN [employer] Address Unknown Phone Unavailable Care Team Providers Care Tar Kettle Runner Name Role Phone SERENA JORDAN CP Unavailable Allergies, Adverse Reactions, Alerts Substance Reaction Event Type Sulfamethoxazole Info Not Available Drug Allergy Flagyl Info Not Available Drug Allergy Problems Problem Type Condition Code Onset Dates Condition Status Problem Low back pain without sciatica, unspecified back pain laterality M54.5 Active Problem Benign paroxysmal positional vertigo 386.11 Active Problem Encounter for dental examination Z01.20 Active Problem Other chronic pain 338.29 Active Assessment Encounter for dental examination Z01.20 Active Problem Unspecified curvature of spine associated with other condition 737.9 Active Problem Other and unspecified hyperlipidemia 272.4 Active Medications Medication Code System Code Instructions Start Date End Date Status Dosage Tylenol ND 0 500 mg Oral Once a day 0.5 tab Refresh Optive [facility] [address]-06 0.5-0.9 % Ophthalmic as needed not defined Atorvastatin Calcium [facility] 77722913314 40MG TAKE ONE TABLET BY MOUTH ONCE DAILY Loratadine [facility] [address]-92 10 MG Orally Once a day 1 tablet Senokot [facility] [address]-85 8.6 MG Orally Once a day as needed 1 tablet Afrin Nasal [place] [facility] [address]-97 0.05 % Nasally Twice a day as needed 2 drops as needed Amoxicillin [facility] [address]-65 500 MG Orally Three times a day 1 capsule Alprazolam [facility] [address]-92 0.5 MG December 08, 2014 1 Tablet by Oral route 2 times per day Colace [facility] [address]-92 100 MG Orally Once a day as needed 1 capsule as needed Ventolin HFA [facility] 35874137041 108MCG/A INHALE ONE PUFF BY MOUTH EVERY 6 HOURS NEEDED Lyrica [facility] [address]-77 50 MG Orally Twice a day February 02, 2015 1 capsule Hydrocodone-Acetaminophen [facility] [address]-02 10-325 MG Orally December 08, 2014 1 Tablet by Oral route 4 times per day PRN for pain Mucus Relief [facility] [address]-59 400 MG Orally every 4 hrs 1 tablet as needed Sudafed [facility] [address]-14 60 MG Orally PRN February 02, 2015 2 tablet as needed Procedures Procedure Coding System Code Date Dental no charge CPT-4 D0099 Oct 16, 2015 Vital Signs Date/Time: Oct 16, 2015 Blood Pressure Diastolic 70 mmHg Blood Pressure Systolic 120 mmHg Results No Known Results Summary Purpose eClinicalWorks Submission
--- OUTSIDE RECORDS SUMMARY | 2017-11-18 05:04 | XMS REPORT ---
Author Author VICTORINA OSUNA [facility] Address [address] [place] [address] Care Team Providers Care Gauge Checker Name Role Phone VICTORINA OSUNA Unavailable PROBLEMS Type Condition ICD9-CM Code [id number] Code Onset Dates Condition Status SNOMED Code Problem Bipolar disorder with severe depression F31.4 Active 752392539 Problem Sinusitis, unspecified chronicity, unspecified location J32.9 Active 62780665 Problem Unspecified mood [affective] disorder F39 Active 929304815 Problem Mononeuropathy, unspecified G58.9 Active 353984701 Problem Reactive airway disease, unspecified asthma severity, uncomplicated J45.909 Active 323349228290 Problem Dysthymic disorder F34.1 Active 49472848 Problem Somnolence R40.0 Active 075441531 Problem History of colon polyps Z86.010 Active 532235349 Problem Medicare annual wellness visit, initial Z00.00 Active 276147259 Problem Mixed hyperlipidemia E78.2 Active 946951532 Problem Unspecified curvature of spine associated with other condition 737.9 Active 01369537 Problem Other and unspecified hyperlipidemia 272.4 Active 70412700 Problem Low back pain without sciatica, unspecified back pain laterality M54.5 Active 567197067 Problem Benign paroxysmal positional vertigo 386.11 Active 718536870 Problem Encounter for dental examination Z01.20 Active 324386357 Problem Other chronic pain 338.29 Active 60882281 Problem PTSD (post-traumatic stress disorder) F43.10 Active 15505052 ALLERGIES Unknown Allergies SOCIAL HISTORY No smoking Hx information available PLAN OF CARE VITAL SIGNS MEDICATIONS Unknown Medications RESULTS No Results PROCEDURES No Known procedures IMMUNIZATIONS No Known Immunizations
--- OUTSIDE RECORDS SUMMARY | 2017-11-18 05:04 | XMS REPORT ---
Author Author VICTORINA OSUNA Organization [employer] Address Unknown Phone Unavailable Care Team Providers Care It Infrastructure Manager Name Role Phone VICTORINA OSUNA CP [...] Start Date End Date Status Dosage Sudafed [facility] [address]-94 60 MG Orally PRN February 02, 2015 2 tablet as needed Results No Known Results Summary Purpose eClinicalWorks Submission
--- OUTSIDE RECORDS SUMMARY | 2017-11-18 05:04 | XMS REPORT ---
Author Author SERENA JORDAN [employer] Address Unknown Phone Unavailable Care Team Providers Care Clerk Secretary Name Role Phone SERENA JORDAN CP Unavailable Allergies, Adverse Reactions, Alerts Substance Reaction Event Type Sulfamethoxazole Info Not Available Drug Allergy Flagyl Info Not Available Drug Allergy Problems Problem Type Condition Code Onset Dates Condition Status Assessment Dental examination Z01.20 Active Problem Low back pain [...] Start Date End Date Status Dosage Alprazolam [facility] [address]-32 0.5 MG December 08, 2014 1 Tablet by Oral route 2 times per day Amoxicillin [facility] [address]-63 500 MG Orally Three times a day 1 capsule Senokot [facility] [address]-23 8.6 MG Orally Once a day as needed 1 tablet Refresh Optive [facility] [address]-19 0.5-0.9 % Ophthalmic as needed not defined Afrin Nasal [place] [facility] [address]-91 0.05 % Nasally Twice a day as needed 2 drops as needed Colace [facility] [address]-13 100 MG Orally Once a day as needed 1 capsule as needed Mucus Relief [facility] [address]-39 400 MG Orally every 4 hrs 1 tablet as needed Lyrica [facility] [address]-53 50 MG Orally Twice a day February 02, 2015 1 capsule Loratadine [facility] [address]-28 10 MG Orally Once a day 1 tablet Sudafed [facility] [address]-04 60 MG Orally PRN February 02, 2015 2 tablet as needed Tylenol [facility] 0 500 mg Oral Once a day 0.5 tab Hydrocodone-Acetaminophen [facility] [address]-59 10-325 MG Orally December 08, 2014 1 Tablet by Oral route 4 times per day PRN for pain Atorvastatin Calcium [facility] 30496958225 40MG TAKE ONE TABLET BY MOUTH ONCE DAILY Ventolin HFA [facility] 75125979491 108MCG/A INHALE ONE PUFF BY MOUTH EVERY 6 HOURS NEEDED Procedures Procedure Coding System Code Date Billing Notes on claim CPT-4 EC109 Oct 13, 2015 BICUSPID CPT-4 D3320 Oct 02, 2015 Vital Signs Date/Time: Oct 13, 2015 Blood Pressure Diastolic 72 mmHg Blood Pressure Systolic 120 mmHg Results No Known Results Summary Purpose eClinicalWorks Submission
--- OUTSIDE RECORDS SUMMARY | 2017-11-18 05:04 | XMS REPORT ---
Author Author VICTORINA OSUNA [facility] eClinicalWorks Address Unknown Phone Unavailable Care Team Providers Care Ceramics Teacher Name Role Phone VICTORINA OSUNA CP Unavailable Allergies, Adverse Reactions, Alerts Substance Reaction Event Type Sulfamethoxazole Info Not Available Drug Allergy Flagyl Info Not Available Drug Allergy Problems Problem Type Condition Code Onset Dates Condition Status Assessment Fatigue, unspecified type R53.83 Active Problem Other and unspecified hyperlipidemia 272.4 Active Problem Other chronic pain 338.29 Active Assessment Screening, lipid Z13.220 Active Assessment Acute non-recurrent sinusitis, unspecified location J01.90 Active Problem PTSD (post-traumatic stress disorder) F43.10 [...] Date End Date Status Dosage Refresh Optive [facility] [address]-16 0.5-0.9 % Ophthalmic as needed not defined Colace [facility] [address]-92 100 MG Orally Once a day as needed 1 capsule as needed Ventolin HFA [facility] [id number] 108MCG/A INHALE ONE PUFF BY MOUTH EVERY 6 HOURS NEEDED Alprazolam [facility] [address]-69 0.5 MG Orally twice a day December 08, 2014 1 tablet Loratadine [facility] [address]-18 10 MG Orally Once a day 1 tablet Lyrica [facility] [address]-49 50 mg Orally 2 times a day February 02, 2015 1 capsule Atorvastatin Calcium [facility] [address]-56 40MG TAKE ONE TABLET BY MOUTH ONCE DAILY Mucus Relief [facility] [address]-47 400 MG Orally every 4 hrs 1 tablet as needed Tylenol NDC 0 500 mg Oral Once a day 0.5 tab Pseudoephedrine HCl [facility] [address]-45 60 mg Orally every 6 hrs December 29, 2015 2 tablets as needed Hydrocodone-Acetaminophen [facility] [address]-15 10-325 MG Orally 4 times a day December 08, 2014 1 tablet Afrin Nasal [place] [facility] [address]-44 0.05 % Nasally Twice a day as needed 2 drops as needed Senokot [facility] [address]-53 8.6 MG Orally Once a day as needed 1 tablet Zithromax Z-Jonathan [facility] [address]-58 250 MG Orally once a day Jul 04, 2016 Jul 09, 2016 2 tablets on the first day, then 1 tablet daily for 4 days Procedures Procedure Coding System Code Date Office Visit, Est Pt., Level 3 CPT-4 24321 Jul 04, 2016 [facility] VISIT ESTABLISHED PATIENT CPT-4 G0467 Jul 04, 2016 Vital Signs Date/Time: Jul 04, 2016 Cardiac Monitoring Heart Rate 77 bpm Weight 143.5 lbs Height 64 in BMI 24.63 Index Blood Pressure Diastolic 79 mmHg Blood Pressure Systolic 112 mmHg Results No Known Results Summary Purpose eClinicalWorks Submission
--- OUTSIDE RECORDS SUMMARY | 2017-11-18 05:04 | XMS REPORT ---
Author Author VICTORINA OSUNA [facility] Address [address] [place] [address] Care Team Providers Care Material Cutter Name Role Phone VICTORINA OSUNA Unavailable PROBLEMS Type Condition ICD9-CM Code [id number] Code Onset Dates Condition Status SNOMED Code Problem PTSD (post-traumatic stress disorder) F43.10 Active 94917798 Problem Sinusitis, unspecified chronicity, unspecified location J32.9 Active 28997828 Problem Unspecified mood [affective] disorder F39 Active 808808595 Problem Reactive airway disease, unspecified asthma severity, uncomplicated J45.909 Active 277652997662 Problem Mononeuropathy, unspecified G58.9 Active 963563446 Problem Somnolence R40.0 Active 034285965 Problem Dysthymic disorder F34.1 Active 99355250 Problem Medicare annual wellness visit, initial Z00.00 Active 211840807 Problem History of colon polyps Z86.010 Active 714490433 Problem Mixed hyperlipidemia E78.2 Active 101480238 Problem Other chronic pain 338.29 Active 93611532 Problem Benign paroxysmal positional vertigo 386.11 Active 843700912 Problem Low back pain without sciatica, unspecified back pain laterality M54.5 Active 256170063 Problem Other and unspecified hyperlipidemia 272.4 Active 20756191 Problem Encounter for dental examination Z01.20 Active 018636007 Problem Unspecified curvature of spine associated with other condition 737.9 Active 92921092 Problem Bipolar disorder with severe depression F31.4 Active 863485426 ALLERGIES Substance Reaction Event Type Date Status Sulfamethoxazole Unknown Drug Allergy Aug, Active Flagyl Unknown Drug Allergy Aug, Active SOCIAL HISTORY No smoking Hx information available PLAN OF CARE Activity Details Follow Up 3 Months Reason:chronic pain VITAL SIGNS Height 64 in 2016-09-08 Weight 145 lbs 2016-09-08 Temperature 98.5 degrees Fahrenheit 2016-09-08 Heart Rate 72 bpm 2016-09-08 Respiratory Rate 16 2016-09-08 BMI 24.89 kg/m2 2016-09-08 Blood pressure systolic 102 mmHg 2016-09-08 Blood pressure diastolic 70 mmHg 2016-09-08 MEDICATIONS Medication Instructions Dosage Frequency Start Date End Date Duration Status Mucus Relief 400 MG Orally every 4 hrs 1 tablet as needed 4h Active Tylenol 500 mg Oral Once a day 0.5 tab 24h Active Senokot 8.6 MG Orally Once a day as needed 1 tablet Active Pseudoephedrine HCl 60 mg Orally every 6 hrs 2 tablets as needed 6h Dec 7 Active Refresh Optive 0.5-0.9 % Ophthalmic as needed Active Levaquin 500 MG Orally Once a day 1 tablet 24h Aug, Sep, 10 day(s) Active Ventolin HFA 108MCG/A INHALE ONE PUFF BY MOUTH EVERY 6 HOURS NEEDED 50 Active Colace 100 MG Orally Once a day as needed 1 capsule as needed Active Loratadine 10 MG Orally Once a day 1 tablet 24h Active Atorvastatin Calcium 40MG TAKE ONE TABLET BY MOUTH ONCE DAILY 30 Active Lyrica 50 mg Orally 2 times a day 1 capsule 12h January, 30 days Active RESULTS No Results PROCEDURES Procedure Date Ordered Related Diagnosis Body Site [facility] VISIT ESTABLISHED PATIENT Sep 08, 2016 Office Visit, Est Pt., Level 3 Sep 08, 2016 IMMUNIZATIONS No Known Immunizations
--- OUTSIDE RECORDS SUMMARY | 2017-11-18 05:04 | XMS REPORT ---
Author Author MARA DELATORRE Organization eClinicalWorks Address Unknown Phone Unavailable Care Team Providers Care Change Room Attendant Name Role Phone MARA DELATORRE CP Unavailable Allergies No Known Allergies Problems Problem Type Condition Code Onset Dates Condition Status Problem Benign paroxysmal positional vertigo 386.11 Active Problem Unspecified curvature of spine associated with other condition 737.9 Active Problem Major depressive disorder, recurrent episode, moderate F33.1 Active Assessment Major depressive disorder, recurrent episode, moderate F33.1 Active Problem Other and unspecified hyperlipidemia 272.4 Active Problem Other chronic pain 338.29 Active Medications No Known Medications Procedures Procedure Coding System Code Date Psychotherapy, patient &/family, 45 minutes, established patient CPT-4 47713 Jul 22, 2015 [facility] VISIT MENTAL HEALTH ESTAB PT CPT-4 G0470 Jul 22, 2015 Results No Known Results Summary Purpose eClinicalWorks Submission
--- OUTSIDE RECORDS SUMMARY | 2017-11-18 05:04 | XMS REPORT ---
Author Author VICTORINA OSUNA Organization eClinicalWorks Address Unknown Phone Unavailable Care Team Providers Care Progressive Die Maker Name Role Phone VICTORINA OSUNA CP Unavailable Allergies No Known Allergies Problems Problem Type Condition Code Onset Dates Condition Status Problem Other chronic pain 338.29 Active Problem Unspecified curvature of spine associated with other condition 737.9 Active Problem Other and unspecified hyperlipidemia 272.4 Active Assessment Low back pain without sciatica, [...] Encounter for dental examination Z01.20 Active Medications No Known Medications Procedures Procedure Coding System Code Date No Charge CPT-4 65224 Aug 15, 2016 Results No Known Results Summary Purpose eClinicalWorks Submission
--- OUTSIDE RECORDS SUMMARY | 2017-11-18 05:05 | XMS REPORT ---
Author Author VICTORINA OSUNA [facility] eClinicalWorks Address Unknown Phone Unavailable Care Team Providers Care Swing Grinder Name Role Phone VICTORINA OSUNA CP Unavailable Allergies, Adverse Reactions, Alerts Substance Reaction Event Type Sulfamethoxazole Info Not Available Drug Allergy Flagyl Info Not Available Drug Allergy Problems Problem Type Condition Code Onset Dates Condition Status Assessment Anxiety F41.9 Active Problem Encounter for dental examination Z01.20 [...] Instructions Start Date End Date Status Dosage Colace [facility] [address]-56 100 MG Orally Once a day as needed 1 capsule as needed Senokot [facility] [address]-86 8.6 MG Orally Once a day as needed 1 tablet Divalproex Sodium ER [facility] [address]-80 500 MG Orally at bedtime Oct 26, 2015 1 tablet Ibuprofen [facility] [address]-54 200 MG Orally every 6 hrs 1 tablet as needed Alprazolam [facility] [address]-71 0.5 MG December 08, 2014 1 Tablet by Oral route 2 times per day Sudafed [facility] [address]-39 60 MG Orally PRN February 02, 2015 2 tablet as needed Afrin Nasal [place] [facility] [address]-26 0.05 % Nasally Twice a day as needed 2 drops as needed Atorvastatin Calcium [facility] 38160877072 40MG TAKE ONE TABLET BY MOUTH ONCE DAILY Ventolin HFA [facility] 59608365854 108MCG/A INHALE ONE PUFF BY MOUTH EVERY 6 HOURS NEEDED Tylenol ND 0 500 mg Oral Once a day 0.5 tab Mucus Relief [facility] [address]-20 400 MG Orally every 4 hrs 1 tablet as needed Lyrica [facility] [address]-41 50 MG Orally Twice a day February 02, 2015 1 capsule Amoxicillin [facility] [address]-79 500 MG Orally Three times a day 1 capsule Hydrocodone-Acetaminophen [facility] [address]-75 10-325 MG Orally December 08, 2014 1 Tablet by Oral route 4 times per day PRN for pain Refresh Optive [facility] [address]-97 0.5-0.9 % Ophthalmic as needed not defined Loratadine [facility] [address]-47 10 MG Orally Once a day 1 tablet Procedures Procedure Coding System Code Date Office Visit, Est Pt., Level 2 CPT-4 77077 Oct 29, 2015 [facility] VISIT ESTABLISHED PATIENT CPT-4 G0467 Oct 29, 2015 Vital Signs Date/Time: Oct 29, 2015 Temperature 97.0 F Weight 152 lbs Height 64 in BMI 26.09 Index Blood Pressure Diastolic 70 mmHg Blood Pressure Systolic 110 mmHg Cardiac Monitoring Heart Rate 68 bpm Results No Known Results Summary Purpose eClinicalWorks Submission
--- OUTSIDE RECORDS SUMMARY | 2017-11-18 05:05 | XMS REPORT ---
Author Author VICTORINA OSUNA Organization eClinicalWorks Address Unknown Phone Unavailable Care Team Providers Care Focusing Machine Operator Name Role Phone VICTORINA OSUNA CP Unavailable [...] Start Date End Date Status Dosage Hydrocodone-Acetaminophen [facility] 2] [address]-98 10-325 MG Orally Rx to be filled on 09/14/15 December 08, 2014 1 Tablet by Oral route 4 times per day PRN for pain Alprazolam [facility]NOTE 2] [address]-32 0.5 MG Rx to be filled on 09/14/15 December 08, 2014 1 Tablet by Oral route 2 times per day Results No Known Results Summary Purpose eClinicalWorks Submission
--- OUTSIDE RECORDS SUMMARY | 2017-11-18 05:05 | XMS REPORT ---
Author Author VICTORINA OSUNA [facility] Address [address] [place] [address] Care Team Providers Care Door To Door Fundraising Collector Name Role Phone VICTORINA OSUNA Unavailable PROBLEMS Type Condition ICD9-CM Code [id number] Code Onset Dates Condition Status SNOMED Code Problem Bipolar disorder with severe depression F31.4 Active 846089219 Problem Sinusitis, unspecified chronicity, unspecified location J32.9 Active 44402087 Problem Unspecified mood [affective] disorder F39 Active 106154354 Problem Mononeuropathy, unspecified G58.9 Active 066991341 Problem Reactive airway disease, unspecified asthma severity, uncomplicated J45.909 Active 558101285594 Problem Dysthymic disorder F34.1 Active 58740862 Problem Somnolence R40.0 Active 669694103 Problem History of colon polyps Z86.010 Active 690864523 Problem Medicare annual wellness visit, initial Z00.00 Active 083558265 Problem Mixed hyperlipidemia E78.2 Active 311129524 Problem Unspecified curvature of spine associated with other condition 737.9 Active 54318829 Problem Other and unspecified hyperlipidemia 272.4 Active 41151321 Problem Low back pain without sciatica, unspecified back pain laterality M54.5 Active 804753310 Problem Benign paroxysmal positional vertigo 386.11 Active 789443293 Problem Encounter for dental examination Z01.20 Active 843525817 Problem Other chronic pain 338.29 Active 35629304 Problem PTSD (post-traumatic stress disorder) F43.10 Active 03292573 ALLERGIES No Information SOCIAL HISTORY Never Assessed PLAN OF CARE VITAL SIGNS MEDICATIONS Medication Instructions Dosage Frequency Start Date End Date Duration Status Alprazolam 0.5 MG Orally Twice a day 1 tablet as needed 12h 28 Jul, 2016 28 days Active Hydrocodone-Acetaminophen 10-325 MG Orally 4 times a day 1 tablet as needed 6h 17 Oct, 2016 28 days Active RESULTS No Results [...]
--- OUTSIDE RECORDS SUMMARY | 2017-11-18 05:05 | XMS REPORT ---
Author Author MARA DELATORRE Organization eClinicalWorks Address Unknown Phone Unavailable Care Team Providers Care Inspector Cold Working Name Role Phone MARA DELATORRE CP Unavailable Allergies No Known Allergies Problems Problem Type Condition Code Onset Dates Condition Status Assessment Unspecified mood [affective] disorder F39 Active Problem Encounter for dental examination Z01.20 Active Problem Low back pain without sciatica, unspecified back pain laterality M54.5 Active Problem Unspecified mood [affective] disorder F39 Active Problem Other and unspecified hyperlipidemia 272.4 Active Problem Other chronic pain 338.29 Active Problem Benign paroxysmal positional vertigo 386.11 Active Problem Unspecified curvature of spine associated with other condition 737.9 Active Medications No Known Medications Procedures Procedure Coding System Code Date Psychotherapy, patient &/family, 45 minutes, established patient CPT-4 04126 Oct 26, 2015 [facility] VISIT MENTAL HEALTH ESTAB PT CPT-4 G0470 Oct 26, 2015 Results No Known Results Summary Purpose [employer] Submission
--- OUTSIDE RECORDS SUMMARY | 2017-11-18 05:05 | XMS REPORT ---
Author Author MARA DELATORRE Organization eClinicalWorks Address Unknown Phone Unavailable Care Team Providers Care Nuclear Pharmacist Name Role Phone MARA DELATORRE CP Unavailable Allergies No Known Allergies Problems Problem Type Condition Code Onset Dates Condition Status Assessment Major depressive disorder, recurrent episode, moderate F33.1 Active Problem Low back pain without sciatica, [...] patient &/family, 30 minutes, established patient CPT-4 28246 Oct 16, 2015 [facility] VISIT MENTAL HEALTH ESTAB PT CPT-4 G0470 Oct 16, 2015 Results No Known Results Summary Purpose [employer] Submission
--- OUTSIDE RECORDS SUMMARY | 2017-11-18 05:05 | XMS REPORT ---
Author Author VICTORINA OSUNA [facility] eClinicalWorks Address Unknown Phone Unavailable Care Team Providers Care Custody Officer Name Role Phone VICTORINA OSUNA CP Unavailable Allergies, Adverse Reactions, Alerts Substance Reaction Event Type Sulfamethoxazole Info Not Available Drug Allergy Flagyl Info Not Available Drug Allergy Problems Problem Type Condition ICD-9 Code Onset Dates Condition Status Assessment Other and unspecified hyperlipidemia 272.4 Active Assessment Dysthymic disorder 300.4 Active Problem Benign paroxysmal positional vertigo 386.11 Active Problem Unspecified curvature of spine associated with other condition 737.9 Active Problem Dysthymic disorder 300.4 Active Problem Other chronic pain 338.29 Active Assessment Other chronic pain 338.29 Active Problem Major depressive disorder, recurrent episode, moderate 296.32 Active Problem Other and unspecified hyperlipidemia 272.4 Active Medications Medication Code System Code Instructions Start Date End Date Status Dosage Sudafed [facility] [address]-79 60 MG Orally PRN February 02, 2015 2 tablet as needed Hydrocodone-Acetaminophen [facility] [address]-54 10-325 MG Orally December 08, 2014 1 Tablet by Oral route 4 times per day PRN for pain Afrin Nasal [place] [facility] [address]-03 0.05 % Nasally Twice a day as needed 2 drops as needed Colace [facility] [address]-10 100 MG Orally Once a day as needed 1 capsule as needed Lyrica [facility] [address]-89 50 MG Orally Twice a day February 02, 2015 1 capsule Ventolin HFA [facility] 55007715422 108MCG/A INHALE ONE PUFF BY MOUTH EVERY 6 HOURS NEEDED Alprazolam [facility] [address]-35 0.5 MG December 08, 2014 1 Tablet by Oral route 2 times per day Refresh Optive [facility] [address]-08 0.5-0.9 % Ophthalmic as needed not defined Lipitor [facility] [address]-46 40 mg Jun 25, 2014 1 tablet by Oral route 1 time per day Loratadine [facility] [address]-11 10 MG Orally Once a day 1 tablet Senokot [facility] [address]-81 8.6 MG Orally Once a day as needed 1 tablet Procedures Procedure Coding System Code Date Office Visit, Est Pt., Level 3 CPT-4 79497 May 14, 2015 [facility] VISIT ESTABLISHED PATIENT CPT-4 G0467 May 14, 2015 Vital Signs Date/Time: May 14, 2015 Temperature 97.7 F Weight 148.3 lbs Height 64 in BMI 25.45 Index Blood Pressure Diastolic 62 mmHg Blood Pressure Systolic 126 mmHg Cardiac Monitoring Heart Rate 62 bpm Results No Known Results Summary Purpose eClinicalWorks Submission
--- OUTSIDE RECORDS SUMMARY | 2017-11-18 05:05 | XMS REPORT ---
Author Author VICTORINA OSUNA Organization eClinicalWorks Address Unknown Phone Unavailable Care Team Providers Care Print Production Coordinator Name Role Phone VICTORINA OSUNA CP Unavailable Allergies No Known Allergies Problems Problem Type Condition ICD-9 Code Onset Dates Condition Status Problem Benign paroxysmal positional vertigo 386.11 Active Problem Unspecified curvature of spine associated with other condition 737.9 Active Problem Dysthymic disorder 300.4 Active Problem Other chronic pain 338.29 Active Assessment Other and unspecified hyperlipidemia 272.4 Active Problem Major depressive disorder, recurrent episode, moderate 296.32 Active Problem Other and unspecified hyperlipidemia 272.4 Active Medications No Known Medications Procedures Procedure Coding System Code Date VENIPUNCT, ROUTINE* CPT-4 78788 Jun 11, [address] [facility] NOB[facility] Jun 11, 2015 Results Name Result Date Reference Range Unit Abnormality Flag ROUTINE VENIPUNCTURE Summary Purpose eClinicalWorks Submission
--- OUTSIDE RECORDS SUMMARY | 2017-11-18 05:05 | XMS REPORT ---
Author Author VICTORINA OSUNA [facility] eClinicalWorks Address Unknown Phone Unavailable Care Team Providers Care Client Executive Name Role Phone VICTORINA OSUNA CP Unavailable Allergies No Known Allergies Problems Problem Type Condition Code Onset Dates Condition Status Problem Other chronic pain 338.29 Active Problem Unspecified curvature of spine associated with other condition 737.9 Active Problem Other and unspecified hyperlipidemia 272.4 Active Assessment PTSD (post-traumatic stress disorder) F43.10 Active Assessment Low back pain without sciatica, [...] Instructions Start Date End Date Status Dosage Mucus Relief [facility]NOTE 3] [address]-87 400 MG Orally every 4 hrs 1 tablet as needed Colace [facility][NOTE 3] [address]-13 100 MG Orally Once a day as needed 1 capsule as needed Ventolin HFA [facility] [place][NOTE 3] 98945422037 108MCG/A INHALE ONE PUFF BY MOUTH EVERY 6 HOURS NEEDED Alprazolam [facility][NOTE 3] [address]-33 0.5 MG Orally twice a day December 08, 2014 1 tablet Pseudoephedrine HCl [facility][NOTE 3] [address]-03 60 mg Orally every 6 hrs December 29, 2015 2 tablets as needed Lyrica [facility] [place][NOTE 3] [address]-52 50 mg Orally 2 times a day February 02, 2015 1 capsule Senokot [facility][NOTE 3] [address]-27 8.6 MG Orally Once a day as needed 1 tablet Refresh Optive [facility] [place][NOTE 3] [address]-83 0.5-0.9 % Ophthalmic as needed not defined Tylenol ND 0 500 mg Oral Once a day 0.5 tab Hydrocodone-Acetaminophen [facility][NOTE 3] [address]-99 10-325 MG Orally 4 times a day December 08, 2014 1 tablet Levaquin [facility][NOTE 3] [address]-84 500 MG Orally Once a day Jul 11, 2016 Jul 21, 2016 1 tablet Atorvastatin Calcium [facility][NOTE 3] [address]-62 40MG TAKE ONE TABLET BY MOUTH ONCE DAILY Loratadine [facility][NOTE 3] [address]-71 10 MG Orally Once a day 1 tablet Results No Known Results Summary Purpose [employer]ClinicalWorks Submission
--- OUTSIDE RECORDS SUMMARY | 2017-11-18 05:05 | XMS REPORT ---
Author Author SERENA JORDAN eClinicalWorks Address Unknown Phone Unavailable Care Team Providers Care Storm Window Installer Name Role Phone SERENA JORDAN CP Unavailable [...] Start Date End Date Status Dosage Colace [facility] [address]-85 100 MG Orally Once a day as needed 1 capsule as needed Tylenol ND 0 500 mg Oral Once a day 0.5 tab Sudafed [facility] [address]-57 60 MG Orally PRN February 02, 2015 2 tablet as needed Atorvastatin Calcium [facility] 26705175891 40MG TAKE ONE TABLET BY MOUTH ONCE DAILY Ventolin HFA [facility] 05285282469 108MCG/A INHALE ONE PUFF BY MOUTH EVERY 6 HOURS NEEDED Loratadine [facility] [address]-07 10 MG Orally Once a day 1 tablet Lyrica [facility] [address]-05 50 MG Orally Twice a day February 02, 2015 1 capsule Amoxicillin [facility] [address]-61 500 MG Orally Three times a day 1 capsule Afrin Nasal [place] [facility] [address]-40 0.05 % Nasally Twice a day as needed 2 drops as needed Hydrocodone-Acetaminophen [facility] [address]-49 10-325 MG Orally Rx to be filled on 09/14/15 December 08, 2014 1 Tablet by Oral route 4 times per day PRN for pain Refresh Optive [facility] [address]-71 0.5-0.9 % Ophthalmic as needed not defined Senokot [facility] [address]-91 8.6 MG Orally Once a day as needed 1 tablet Mucus Relief [facility] [address]-13 400 MG Orally every 4 hrs 1 tablet as needed Alprazolam [facility] [address]-84 0.5 MG Rx to be filled on 09/14/15 December 08, 2014 1 Tablet by Oral route 2 times per day Procedures Procedure Coding System Code Date LTD ORAL EVALUATION - PROBLEM FOCUS CPT-4 D0140 Oct 02, 2015 Vital Signs Date/Time: Oct 02, 2015 Blood Pressure Diastolic 77 mmHg Blood Pressure Systolic 139 mmHg Results No Known Results Summary Purpose eClinicalWorks Submission
--- OUTSIDE RECORDS SUMMARY | 2017-11-18 05:05 | XMS REPORT ---
Author Author MARA DELATORRE Organization eClinicalWorks Address Unknown Phone Unavailable Care Team Providers Care Occ Ther Name Role Phone MARA DELATORRE CP Unavailable [...] Code Date Psychotherapy, patient &/family, 45 minutes, new patient CPT-4 47720 Aug [facility] NEW PT CPT-4 G0469 Aug 20, 2015 Results No Known Results Summary Purpose eClinicalWorks Submission
--- OUTSIDE RECORDS SUMMARY | 2017-11-18 05:05 | XMS REPORT ---
Author Author VICTORINA OSUNA [facility] Address [address] [place] [address] Care Team Providers Care Pilot Plant Supervisor Name Role Phone VICTORINA OSUNA Unavailable PROBLEMS Type Condition ICD9-CM Code [id number] Code Onset Dates Condition Status SNOMED Code Problem PTSD (post-traumatic stress disorder) F43.10 Active 73467024 Problem Sinusitis, unspecified chronicity, unspecified location J32.9 Active 16105824 Problem Unspecified mood [affective] disorder F39 Active 685513856 Problem Reactive airway disease, unspecified asthma severity, uncomplicated J45.909 Active 904322956054 Problem Mononeuropathy, unspecified G58.9 Active 137394571 Problem Somnolence R40.0 Active 854697003 Problem Dysthymic disorder F34.1 Active 96223943 Problem Medicare annual wellness visit, initial Z00.00 Active 251482603 Problem History of colon polyps Z86.010 Active 307313365 Problem Mixed hyperlipidemia E78.2 Active 723989076 Problem Other chronic pain 338.29 Active 55955614 Problem Benign paroxysmal positional vertigo 386.11 Active 776523988 Problem Low back pain without sciatica, unspecified back pain laterality M54.5 Active 038362923 Problem Other and unspecified hyperlipidemia 272.4 Active 67250865 Problem Encounter for dental examination Z01.20 Active 067484056 Problem Unspecified curvature of spine associated with other condition 737.9 Active 63808265 Problem Bipolar disorder with severe depression F31.4 Active 693376555 ALLERGIES Unknown Allergies SOCIAL HISTORY No smoking Hx information available PLAN OF CARE VITAL SIGNS MEDICATIONS Medication Instructions Dosage Frequency Start Date End Date Duration Status Hydrocodone-Acetaminophen 10-325 MG Orally 4 times a day 1 tablet as needed 6h 25 Aug, 2016 28 days Active Alprazolam 0.5 MG Orally Twice a day 1 tablet as needed 12h 28 Jul, 2016 28 days Active RESULTS No Results PROCEDURES No Known procedures IMMUNIZATIONS No Known Immunizations
--- OUTSIDE RECORDS SUMMARY | 2017-11-18 05:05 | XMS REPORT ---
Author Author SERENA JORDAN eClinicalWorks Address Unknown Phone Unavailable Care Team Providers Care Mineral Surveyor Name Role Phone SERENA JORDAN CP Unavailable Allergies, Adverse Reactions, Alerts Substance Reaction Event Type Sulfamethoxazole Info Not Available Drug Allergy Flagyl Info Not Available Drug Allergy Problems Problem Type Condition Code Onset Dates Condition Status Assessment Dental examination Z01.20 Active Problem Other and unspecified [...] Instructions Start Date End Date Status Dosage Loratadine [facility] [address]-38 10 MG Orally Once a day 1 tablet Lyrica [facility] [address]-23 50 mg Orally 2 times a day February 02, 2015 1 capsule Tylenol [facility] 0 500 mg Oral Once a day 0.5 tab Hydrocodone-Acetaminophen [facility] [address]-26 10-325 MG Orally 4 times a day December 08, 2014 1 tablet Pseudoephedrine HCl [facility] [address]-90 60 mg Orally every 6 hrs December 29, 2015 2 tablets as needed Alprazolam [facility] [address]-54 0.5 MG Orally twice a day December 08, 2014 1 tablet Colace [facility] [address]-31 100 MG Orally Once a day as needed 1 capsule as needed Senokot [facility] [address]-00 8.6 MG Orally Once a day as needed 1 tablet Mucus Relief [facility] [address]-74 400 MG Orally every 4 hrs 1 tablet as needed Atorvastatin Calcium [facility] [address]-50 40MG TAKE ONE TABLET BY MOUTH ONCE DAILY Refresh Optive NDC [address]-11 0.5-0.9 % Ophthalmic as needed not defined Afrin Nasal [place] [facility] [address]-75 0.05 % Nasally Twice a day as needed 2 drops as needed Ventolin HFA [facility] 95133364464 108MCG/A INHALE ONE PUFF BY MOUTH EVERY 6 HOURS NEEDED Procedures Procedure Coding System Code Date INTRAORL-PERIAPICAL 1 FILM 21710 CPT-4 D0220 Jun 17, 2016 LTD ORAL EVALUATION - PROBLEM FOCUS CPT-4 D0140 Jun 17, 2016 Vital Signs Date/Time: Jun 17, 2016 Blood Pressure Diastolic 69 mmHg Blood Pressure Systolic 105 mmHg Height 64 in Results No Known Results Summary Purpose eClinicalWorks Submission
--- OUTSIDE RECORDS SUMMARY | 2017-11-18 05:06 | XMS REPORT ---
Author Author VICTORINA OSUNA [facility] eClinicalWorks Address Unknown Phone Unavailable Care Team Providers Care Coronary Care Unit Nurse Name Role Phone VICTORINA OSUNA Unavailable Allergies, Adverse Reactions, Alerts Substance Reaction [...] Other chronic pain 338.29 Active Assessment Other depression F32.8 Active Problem Unspecified curvature of spine associated with other condition 737.9 Active Problem Other and unspecified hyperlipidemia 272.4 Active Medications Medication Code System Code Instructions Start Date End Date Status Dosage Mucus Relief [facility] [address]-98 400 MG Orally every 4 hrs 1 tablet as needed Lyrica [facility] [address]-05 50 MG Orally Twice a day February 02, 2015 1 capsule Alprazolam [facility] [address]-47 0.5 MG December 08, 2014 1 Tablet by Oral route 2 times per day Refresh Optive [facility] [address]-84 0.5-0.9 % Ophthalmic as needed not defined Sudafed [facility] [address]-12 60 MG Orally PRN February 02, 2015 2 tablet as needed Afrin Nasal [place] [facility] [address]-31 0.05 % Nasally Twice a day as needed 2 drops as needed Loratadine [facility] [address]-91 10 MG Orally Once a day 1 tablet Ventolin HFA [facility] 60811299216 108MCG/A INHALE ONE PUFF BY MOUTH EVERY 6 HOURS NEEDED Atorvastatin Calcium [facility] 70848555000 40MG TAKE ONE TABLET BY MOUTH ONCE DAILY Colace [facility] [address]-17 100 MG Orally Once a day as needed 1 capsule as needed Tylenol ND 0 500 mg Oral Once a day 0.5 tab Amoxicillin [facility] [address]-28 500 MG Orally Three times a day 1 capsule Senokot [facility] [address]-99 8.6 MG Orally Once a day as needed 1 tablet Ibuprofen [facility] [address]-64 200 MG Orally every 6 hrs 1 tablet as needed Hydrocodone-Acetaminophen [facility] [address]-60 10-325 MG Orally December 08, 2014 1 Tablet by Oral route 4 times per day PRN for pain Procedures Procedure Coding System Code Date Office Visit, Est Pt., Level 3 CPT-4 63878 Oct 22, 2015 [facility] VISIT ESTABLISHED PATIENT CPT-4 G0467 Oct 22, 2015 Vital Signs Date/Time: Oct 22, 2015 Temperature 97.7 F Weight 148.8 lbs Height 64 in BMI 25.54 Index Blood Pressure Diastolic 68 mmHg Blood Pressure Systolic 114 mmHg Cardiac Monitoring Heart Rate 72 bpm Results No Known Results Summary Purpose eClinicalWorks Submission
--- OUTSIDE RECORDS SUMMARY | 2017-11-18 05:06 | XMS REPORT ---
Author Author VICTORINA OSUNA [facility] Address [address] [place] [address] Care Team Providers Care Manager State Name Role Phone VICTORINA OSUNA Unavailable PROBLEMS Type Condition ICD9-CM Code [id number] Code Onset Dates Condition Status SNOMED Code Problem Bipolar disorder with severe depression F31.4 Active 790969612 Problem Sinusitis, unspecified chronicity, unspecified location J32.9 Active 28252318 Problem Unspecified mood [affective] disorder F39 Active 649282132 Problem Mononeuropathy, unspecified G58.9 Active 055225035 Problem Reactive airway disease, unspecified asthma severity, uncomplicated J45.909 Active 702017768587 Problem Dysthymic disorder F34.1 Active 78033619 Problem Somnolence R40.0 Active 095753599 Problem History of colon polyps Z86.010 Active 197934892 Problem Medicare annual wellness visit, initial Z00.00 Active 020948618 Problem Mixed hyperlipidemia E78.2 Active 562389261 Problem Unspecified curvature of spine associated with other condition 737.9 Active 85871654 Problem Other and unspecified hyperlipidemia 272.4 Active 45779291 Problem Low back pain without sciatica, unspecified back pain laterality M54.5 Active 169165758 Problem Benign paroxysmal positional vertigo 386.11 Active 254404208 Problem Encounter for dental examination Z01.20 Active 806908636 Problem Other chronic pain 338.29 Active 26173872 Problem PTSD (post-traumatic stress disorder) F43.10 Active 33505901 ALLERGIES Unknown Allergies SOCIAL HISTORY No smoking Hx information available PLAN OF CARE VITAL SIGNS MEDICATIONS Medication Instructions Dosage Frequency Start Date End Date Duration Status Hydrocodone-Acetaminophen 10-325 MG Orally 4 times a day 1 tablet as needed 6h 22 Sep, 2016 28 days Active Alprazolam 0.5 MG Orally Twice a day 1 tablet as needed 12h Jul, 28 days Active RESULTS No Results PROCEDURES No Known procedures IMMUNIZATIONS No Known Immunizations
--- OUTSIDE RECORDS SUMMARY | 2017-11-18 05:06 | XMS REPORT ---
Author Author VICTORINA OSUNA [facility] Address [address] [place] [address] Care Team Providers Care Supervisor Shearing Name Role Phone [place] OSUNA Unavailable PROBLEMS Type Condition ICD9-CM Code [id number] Code Onset Dates Condition Status SNOMED Code Problem Bipolar disorder with severe depression F31.4 Active 255441190 Problem Sinusitis, unspecified chronicity, unspecified location J32.9 Active 67119695 Problem Unspecified mood [affective] disorder F39 Active 290790043 Problem Mononeuropathy, unspecified G58.9 Active 927635787 Problem Reactive airway disease, unspecified asthma severity, uncomplicated J45.909 Active 197706352852 Problem Dysthymic disorder F34.1 Active 53242580 Problem Somnolence R40.0 Active 483527771 Problem History of colon polyps Z86.010 Active 183600401 Problem Medicare annual wellness visit, initial Z00.00 Active 706438633 Problem Mixed hyperlipidemia E78.2 Active 143305483 Problem Unspecified curvature of spine associated with other condition 737.9 Active 94377573 Problem Other and unspecified hyperlipidemia 272.4 Active 92689819 Problem Low back pain without sciatica, unspecified back pain laterality M54.5 Active 525267517 Problem Benign paroxysmal positional vertigo 386.11 Active 529831523 Problem Encounter for dental examination Z01.20 Active 850370606 Problem Other chronic pain 338.29 Active 79226350 Problem PTSD (post-traumatic stress disorder) F43.10 Active 52460790 ALLERGIES Unknown Allergies SOCIAL HISTORY No smoking Hx information available PLAN OF CARE VITAL SIGNS MEDICATIONS Medication Instructions Dosage Frequency Start Date End Date Duration Status Levaquin 500 MG Orally Once a day 1 tablet 24h Aug, 10 day(s) Active RESULTS No Results PROCEDURES No Known procedures IMMUNIZATIONS No Known Immunizations
--- OUTSIDE RECORDS SUMMARY | 2017-11-18 05:06 | XMS REPORT ---
Author Author VICTORINA OSUNA [facility] Address [address] [place] [address] Care Team Providers Care Cement Truck Driver Name Role Phone VICTORINA OSUNA Unavailable PROBLEMS Type Condition ICD9-CM Code [id number] Code Onset Dates Condition Status SNOMED Code Problem PTSD (post-traumatic stress disorder) F43.10 Active 20996466 Problem Sinusitis, unspecified chronicity, unspecified location J32.9 Active 62758378 Problem Unspecified mood [affective] disorder F39 Active 613633894 Problem Mixed hyperlipidemia E78.2 Active 571565600 Problem Low back pain without sciatica, unspecified back pain laterality M54.5 Active 641357080 Problem Encounter for dental examination Z01.20 Active 725955440 Problem Bipolar disorder with severe depression F31.4 Active 630882317 Problem Mononeuropathy, unspecified G58.9 Active 053363099 Problem Reactive airway disease, unspecified asthma severity, uncomplicated J45.909 Active 082206112089 Problem Somnolence R40.0 Active 945700211 Problem Dysthymic disorder F34.1 Active 63212457 Problem History of colon polyps Z86.010 Active 839194964 Problem Medicare annual wellness visit, initial Z00.00 Active 214444878 ALLERGIES Substance Reaction Event Type Date Status Sulfamethoxazole-Trimethoprim Unknown Drug Allergy Nov, Active Flagyl Unknown Drug Allergy Nov, Active SOCIAL HISTORY Never Assessed PLAN OF CARE Activity Details Follow Up prn Reason: VITAL SIGNS Height 64 in 2016-12-05 Weight 145.2 lbs 2016-12-05 Temperature 98.2 degrees Fahrenheit 2016-12-05 Heart Rate 60 bpm 2016-12-05 Respiratory Rate 18 2016-12-05 BMI 24.92 kg/m2 2016-12-05 Blood pressure systolic 102 mmHg 2016-12-05 Blood pressure diastolic 68 mmHg 2016-12-05 MEDICATIONS Medication Instructions Dosage Frequency Start Date End Date Duration Status Ventolin HFA 108MCG/A INHALE ONE PUFF BY MOUTH EVERY 6 HOURS NEEDED 50 Active Afrin Nasal [place] 0.05 % Nasally Twice a day as needed 2 drops as needed Active Tylenol 500 mg Oral Once a day 0.5 tab 24h Active Colace 100 MG Orally Once a day as needed 1 capsule as needed Active Pseudoephedrine HCl 60 MG Orally every 6 hrs 2 tablets as needed 6h 12 Dec 07 days Active Loratadine 10 MG Orally Once a day 1 tablet 24h Active Hydrocodone-Acetaminophen 10-325 MG Orally 4 times a day 1 tablet as needed 6h 17 Nov, 2016 28 days Active Alprazolam 0.5 MG Orally Twice a day 1 tablet as needed 12h 28 Jul, 2016 28 days Active Atorvastatin Calcium 40 MG TAKE ONE TABLET BY MOUTH ONCE DAILY 30 Active Ciprofloxacin HCl 500 MG Orally Twice a day 1 tablet 12h 13 Nov, 2016 Active Zofran 4 MG Orally every 6 hours as needed 1 tablet Active Senokot 8.6 MG Orally Once a day as needed 1 tablet Active Pepcid 20 mg Orally Once a day 1 tablet 24h 30 days Active Mucus Relief 400 MG Orally every 4 hrs 1 tablet as needed 4h Active Levaquin 500 MG Orally Once a day 1 tablet 24h Aug, 10 day(s) Active Lyrica 50 MG Orally 2 times a day 1 capsule 12h January, 28 days Active Refresh Optive 0.5-0.9 % Ophthalmic as needed Active ProAir RespiClick 108 (90 Base) MCG/ACT Inhalation every 4 hrs 1 puff as needed 4h January, Active RESULTS No Results PROCEDURES Procedure Date Ordered Result Body Site [facility] ESTABLISHED PATIENT December 05, 2016 IMMUNIZATIONS No Known Immunizations MEDICAL (GENERAL) HISTORY [...]
--- OUTSIDE RECORDS SUMMARY | 2017-11-18 05:06 | XMS REPORT ---
Author Author MARA DELATORRE Organization eClinicalWorks Address Unknown Phone Unavailable Care Team Providers Care Sports Editor Name Role Phone MARA DELATORRE CP Unavailable [...] patient &/family, 45 minutes, established patient CPT-4 02823 Jun 11, 2015 [facility] VISIT MENTAL HEALTH ESTAB PT CPT-4 G0470 Jun 11, 2015 Results No Known Results Summary Purpose eClinicalWorks Submission
--- OUTSIDE RECORDS SUMMARY | 2017-11-18 05:06 | XMS REPORT ---
Author Author VICTORINA OSUNA [facility] eClinicalWorks Address Unknown Phone Unavailable Care Team Providers Care Manager Electrical Name Role Phone VICTORINA OSUNA CP Unavailable Allergies, Adverse Reactions, Alerts Substance Reaction Event Type Sulfamethoxazole Info Not Available Drug Allergy Flagyl Info Not Available Drug Allergy Problems Problem Type Condition Code Onset Dates Condition Status Assessment Grief F43.20 Active Assessment Financial difficulties Z59.8 Active Problem Major depressive disorder, recurrent episode, [...] Start Date End Date Status Dosage Sudafed [facility] [address]-22 60 MG Orally PRN February 02, 2015 2 tablet as needed Lyrica [facility] [address]-68 50 MG Orally Twice a day February 02, 2015 1 capsule Ventolin HFA [facility] 31698244699 108MCG/A INHALE ONE PUFF BY MOUTH EVERY 6 HOURS NEEDED Afrin Nasal [place] [facility] [address]-37 0.05 % Nasally Twice a day as needed 2 drops as needed Atorvastatin Calcium [facility] 73301985378 40MG TAKE ONE TABLET BY MOUTH ONCE DAILY Alprazolam [facility] [address]-44 0.5 MG December 08, 2014 1 Tablet by Oral route 2 times per day Refresh Optive [facility] [address]-29 0.5-0.9 % Ophthalmic as needed not defined Loratadine [facility] [address]-96 10 MG Orally Once a day 1 tablet Senokot [facility] [address]-29 8.6 MG Orally Once a day as needed 1 tablet Hydrocodone-Acetaminophen [facility] [address]-53 10-325 MG Orally December 08, 2014 1 Tablet by Oral route 4 times per day PRN for pain Procedures Procedure Coding System Code Date Office Visit, Est Pt., Level 3 CPT-4 32831 Aug 24, 2015 [facility] VISIT ESTABLISHED PATIENT CPT-4 G0467 Aug 24, 2015 Vital Signs Date/Time: Aug 24, 2015 Temperature 97.3 F Weight 149.2 lbs Height 64 in BMI 25.61 Index Blood Pressure Diastolic 68 mmHg Blood Pressure Systolic 96 mmHg Cardiac Monitoring Heart Rate 68 bpm Results No Known Results Summary Purpose eClinicalWorks Submission
--- OUTSIDE RECORDS SUMMARY | 2017-11-18 05:06 | XMS REPORT ---
Author Author VICTORINA OSUNA Organization eClinicalWorks Address Unknown Phone Unavailable Care Team Providers Care Director Career Services Name Role Phone VICTORINA OSUNA CP Unavailable [...] Start Date End Date Status Dosage Hydrocodone-Acetaminophen [facility] [address]-18 10-325 MG Orally December 08, 2014 1 Tablet by Oral route 4 times per day PRN for pain REFILLED EARLY D /T HOLIDAY Results No Known Results Summary Purpose eClinicalWorks Submission
--- OUTSIDE RECORDS SUMMARY | 2017-11-18 05:06 | XMS REPORT ---
Author Author VICTORINA OSUNA Organization eClinicalWorks Address Unknown Phone Unavailable Care Team Providers Care Nailhead Operator Name Role Phone VICTORINA OSUNA CP [...] hyperlipidemia 272.4 Active Medications No Known Medications Results No Known Results Summary Purpose eClinicalWorks Submission
--- OUTSIDE RECORDS SUMMARY | 2017-11-18 05:06 | XMS REPORT ---
Author Author DONTRELL STREETER eClinical[employer] Address Unknown Phone Unavailable Care Team Providers Care Panel Machine Operator Name Role Phone DONTRELL STREETER CP Unavailable Allergies, Adverse Reactions, Alerts Substance Reaction Event Type Sulfamethoxazole Info Not Available Drug Allergy Flagyl Info Not Available Drug Allergy Problems Problem Type Condition Code Onset Dates Condition Status Assessment Encounter for dental examination Z01.20 Active [...] Instructions Start Date End Date Status Dosage Afrin Nasal [place] [facility] [address]-54 0.05 % Nasally Twice a day as needed 2 drops as needed Colace [facility] [address]-51 100 MG Orally Once a day as needed 1 capsule as needed Lyrica [facility] [address]-44 50 MG Orally Twice a day February 02, 2015 1 capsule Atorvastatin Calcium [facility] 31746400315 40MG TAKE ONE TABLET BY MOUTH ONCE DAILY Sudafed [facility] [address]-05 60 MG Orally PRN February 02, 2015 2 tablet as needed Refresh Optive [facility] [address]-67 0.5-0.9 % Ophthalmic as needed not defined Loratadine [facility] [address]-51 10 MG Orally Once a day 1 tablet Alprazolam [facility] [address]-49 0.5 MG Rx to be filled on 09/14/15 December 08, 2014 1 Tablet by Oral route 2 times per day Tylenol ND 0 500 mg Oral Once a day 0.5 tab Hydrocodone-Acetaminophen [facility] [address]-22 10-325 MG Orally Rx to be filled on 09/14/15 December 08, 2014 1 Tablet by Oral route 4 times per day PRN for pain Ventolin HFA [facility] 42486257239 108MCG/A INHALE ONE PUFF BY MOUTH EVERY 6 HOURS NEEDED Senokot [facility] [address]-71 8.6 MG Orally Once a day as needed 1 tablet Mucus Relief [facility] [address]-09 400 MG Orally every 4 hrs 1 tablet as needed Procedures Procedure Coding System Code Date INTRAORL-PERIAPICAL 1 FILM 19505 CPT-4 D0220 Sep 29, 2015 PROPHYLAXIS - ADULT CPT-4 D1110 Sep 29, 2015 PERIODIC ORAL EXAMINATION CPT-4 D0120 Sep 29, 2015 TOPICAL FLUORIDE VARNISH CPT-4 D1206 Sep 29, 2015 Vital Signs Date/Time: Sep 29, 2015 Blood Pressure Diastolic 93 mmHg Blood Pressure Systolic 130 mmHg Cardiac Monitoring Heart Rate 57 bpm Results No Known Results Summary Purpose eClinicalWorks Submission
--- OUTSIDE RECORDS SUMMARY | 2017-11-18 05:06 | XMS REPORT ---
Author Author MARA DELATORRE Organization eClinicalWorks Address Unknown Phone Unavailable Care Team Providers Care Gear Repairer Name Role Phone MARA DELATORRE CP Unavailable [...] patient &/family, 45 minutes, established patient CPT-4 04292 Oct 02, 2015 [facility] VISIT MENTAL HEALTH ESTAB PT CPT-4 G0470 Oct 02, 2015 Results No Known Results Summary Purpose [employer] Submission
--- OUTSIDE RECORDS SUMMARY | 2017-11-18 05:06 | XMS REPORT ---
Author Author VICTORINA OSUNA Organization eClinicalWorks Address Unknown Phone Unavailable Care Team Providers Care Director Industrial Relations Name Role Phone VICTORINA OSUNA CP Unavailable [...] Start Date End Date Status Dosage Alprazolam [facility] [address]-63 0.5 MG Orally twice a day December 08, 2014 1 tablet Hydrocodone-Acetaminophen [facility] [address]-86 10-325 MG Orally 4 times a day December 08, 2014 1 tablet Results No Known Results Summary Purpose eClinicalWorks Submission
--- OUTSIDE RECORDS SUMMARY | 2017-11-18 05:06 | XMS REPORT ---
Author Author VICTORINA OSUNA Organization [employer] Address Unknown Phone Unavailable Care Team Providers Care Trimmer Climber Name Role Phone VICTORINA OSUNA CP Unavailable [...] Date End Date Status Dosage Pseudoephedrine HCl [facility] [address]-00 60 mg Orally every 6 hrs December 29, 2015 2 tablets as needed Results No Known Results Summary Purpose eClinicalWorks Submission
--- OUTSIDE RECORDS SUMMARY | 2017-11-18 05:06 | XMS REPORT ---
Author Author SERENA JORDAN [facility] Address Unknown Care Team Providers Care Jewelry Engraver Name Role Phone SERENA JORDAN Unavailable PROBLEMS Type Condition ICD9-CM Code [id number] Code Onset Dates Condition Status SNOMED Code Problem Unspecified mood [affective] disorder F39 Active 174560281 Problem Somnolence R40.0 Active 599702799 Problem Sinusitis, unspecified chronicity, unspecified location J32.9 Active 24590453 Problem Other chronic pain G89.29 Active 68985946 Problem Mononeuropathy, unspecified G58.9 Active 662268859 Problem Medicare annual wellness visit, initial Z00.00 Active 087838945 Problem Dysthymic disorder F34.1 Active 72748333 Problem Reactive airway disease, unspecified asthma severity, uncomplicated J45.909 Active 105980199138 Problem History of colon polyps Z86.010 Active 445412205 Problem Low back pain without sciatica, unspecified back pain laterality M54.5 Active 476502338 Problem Encounter for dental examination Z01.20 Active 127937461 Problem Bipolar disorder with severe depression F31.4 Active 895515543 Problem Mixed hyperlipidemia E78.2 Active 776291598 Problem PTSD (post-traumatic stress disorder) F43.10 Active 57146132 ALLERGIES Substance Reaction Event Type Date Status Sulfamethoxazole-Trimethoprim Unknown Drug Allergy Dec, Active Flagyl Unknown Drug Allergy Dec, Active SOCIAL HISTORY Never Assessed PLAN OF CARE Activity Details Follow Up prn Reason:recare VITAL SIGNS Height 64 in 2016-12-30 Blood pressure systolic 114 mmHg 2016-12-30 Blood pressure diastolic 61 mmHg 2016-12-30 MEDICATIONS Medication Instructions Dosage Frequency Start Date End Date Duration Status Pseudoephedrine HCl 60 MG Orally every 6 hrs 2 tablets as needed 6h 12 Dec 07 days Active Atorvastatin Calcium 40 MG TAKE ONE TABLET BY MOUTH ONCE DAILY 30 Active Tylenol 500 mg Oral Once a day 0.5 tab 24h Active Senokot 8.6 MG Orally Once a day as needed 1 tablet Active Alprazolam 0.5 MG Orally Twice a day 1 tablet as needed 12h 28 Jul, 2016 28 days Active Refresh Optive 0.5-0.9 % Ophthalmic as needed Active Mucus Relief 400 MG Orally every 4 hrs 1 tablet as needed 4h Active Ventolin HFA 108MCG/A INHALE ONE PUFF BY MOUTH EVERY 6 HOURS NEEDED 50 Active Afrin Nasal [place] 0.05 % Nasally Twice a day as needed 2 drops as needed Active Loratadine 10 MG Orally Once a day 1 tablet 24h Active Lyrica 50 MG Orally 2 times a day 1 capsule 12h 18 Jan, 2015 28 days Active Hydrocodone-Acetaminophen 10-325 MG Orally 4 times a day 1 tablet as needed 6h 17 Nov, 2016 28 days Active RESULTS No Results PROCEDURES Procedure Date Ordered Result Body Site RESIN COMPOS - 2 SURFACES POSTERIOR December 30, 2016 Billing Notes on claim December 30, 2016 IMMUNIZATIONS No Known Immunizations MEDICAL (GENERAL) [...]
--- OUTSIDE RECORDS SUMMARY | 2017-11-18 05:06 | XMS REPORT ---
Author Author TAVARES [facility] Address Unknown Care Team Providers Care Investigation Division Captain Name Role Phone Bandar TAVARES Unavailable PROBLEMS Type Condition ICD9-CM Code [id number] Code Onset Dates Condition Status SNOMED Code Problem PTSD (post-traumatic stress disorder) F43.10 Active 74948917 Problem Sinusitis, unspecified chronicity, unspecified location J32.9 Active 22718513 Problem Unspecified mood [affective] disorder F39 Active 608528466 Problem Reactive airway disease, unspecified asthma severity, uncomplicated J45.909 Active 114613117125 Problem Mononeuropathy, unspecified G58.9 Active 187216314 Problem Somnolence R40.0 Active 689356412 Problem Dysthymic disorder F34.1 Active 34155235 Problem Medicare annual wellness visit, initial Z00.00 Active 727480482 Problem History of colon polyps Z86.010 Active 394668480 Problem Mixed hyperlipidemia E78.2 Active 021069864 Problem Other chronic pain 338.29 Active 45701476 Problem Benign paroxysmal positional vertigo 386.11 Active 943143630 Problem Low back pain without sciatica, unspecified back pain laterality M54.5 Active 826531016 Problem Other and unspecified hyperlipidemia 272.4 Active 78456183 Problem Encounter for dental examination Z01.20 Active 180988554 Problem Unspecified curvature of spine associated with other condition 737.9 Active 02396185 Problem Bipolar disorder with severe depression F31.4 Active 280160146 ALLERGIES Substance Reaction Event Type Date Status Sulfamethoxazole Unknown Drug Allergy Jul, Active Flagyl Unknown Drug Allergy Jul, Active SOCIAL HISTORY No smoking Hx information available PLAN OF CARE Activity Details Follow Up prn Reason:hygiene VITAL SIGNS Height 64 in 2016-07-25 Blood pressure systolic 103 mmHg 2016-07-25 Blood pressure diastolic 64 mmHg 2016-07-25 MEDICATIONS Medication Instructions Dosage Frequency Start Date End Date Duration Status Refresh Optive 0.5-0.9 % Ophthalmic as needed Active Senokot 8.6 MG Orally Once a day as needed 1 tablet Active Tylenol 500 mg Oral Once a day 0.5 tab 24h Active Ventolin HFA 108MCG/A INHALE ONE PUFF BY MOUTH EVERY 6 HOURS NEEDED 50 Active Pseudoephedrine HCl 60 mg Orally every 6 hrs 2 tablets as needed 6h 12 Dec 7 Active Loratadine 10 MG Orally Once a day 1 tablet 24h Active Colace 100 MG Orally Once a day as needed 1 capsule as needed Active Alprazolam 0.5 MG Orally twice a day 1 tablet 12h Nov, 28 days Active Hydrocodone-Acetaminophen 10-325 MG Orally 4 times a day 1 tablet 6h Nov 28 days Active Mucus Relief 400 MG Orally every 4 hrs 1 tablet as needed 4h Active Lyrica 50 mg Orally 2 times a day 1 capsule 12h January, Active Atorvastatin Calcium 40MG TAKE ONE TABLET BY MOUTH ONCE DAILY 30 Active RESULTS No Results PROCEDURES Procedure Date Ordered Related Diagnosis Body Site RESIN COMPOS - 2 SURFACES ANTERIOR Jul 25, 2016 Billing Notes on claim Jul 25, 2016 [employer] Employee/Board adjustment Jul 25, 2016 IMMUNIZATIONS No Known Immunizations
--- OUTSIDE RECORDS SUMMARY | 2017-11-18 05:07 | XMS REPORT ---
Author Author VICTORINA OSUNA Organization [employer] Address Unknown Phone Unavailable Care Team Providers Care Family Nurse Practitioner Name Role Phone VICTORINA OSUNA CP Unavailable [...] Date End Date Status Dosage Lyrica [facility] [address]-90 50 mg Orally Twice a day February 02, 2015 1 capsule Results No Known Results Summary Purpose [employer]ClinicalWorks Submission
--- OUTSIDE RECORDS SUMMARY | 2017-11-18 05:07 | XMS REPORT ---
Author Author VICTORINA OSUNA Organization [facility] Address [address] [place] [address] Care Team Providers Care Stone Chimney Mason Name Role Phone VICTORINA OSUNA Unavailable PROBLEMS Type Condition ICD9-CM Code [id number] Code Onset Dates Condition Status SNOMED Code Problem PTSD (post-traumatic stress disorder) F43.10 Active 29599660 Problem Sinusitis, unspecified chronicity, unspecified location J32.9 Active 64594784 Problem Unspecified mood [affective] disorder F39 Active 430085303 Problem Reactive airway disease, unspecified asthma severity, uncomplicated J45.909 Active 884545102842 Problem Mononeuropathy, unspecified G58.9 Active 549003297 Problem Somnolence R40.0 Active 381291017 Problem Dysthymic disorder F34.1 Active 62499844 Problem Medicare annual wellness visit, initial Z00.00 Active 100958717 Problem History of colon polyps Z86.010 Active 255896411 Problem Mixed hyperlipidemia E78.2 Active 904140978 Problem Other chronic pain 338.29 Active 18265081 Problem Benign paroxysmal positional vertigo 386.11 Active 457752139 Problem Low back pain without sciatica, unspecified back pain laterality M54.5 Active 066777427 Problem Other and unspecified hyperlipidemia 272.4 Active 56278898 Problem Encounter for dental examination Z01.20 Active 869729623 Problem Unspecified curvature of spine associated with other condition 737.9 Active 59408935 Problem Bipolar disorder with severe depression F31.4 Active 432288243 ALLERGIES Unknown Allergies SOCIAL HISTORY No smoking Hx information available PLAN OF CARE VITAL SIGNS MEDICATIONS Unknown Medications RESULTS Name Result Date Reference Range LIPID PANEL 2016-08-30 Cholesterol, Total 146 100-199 Triglycerides 171 0-149 HDL Cholesterol 51 >39 VLDL Cholesterol Mickey 34 5-40 LDL Cholesterol Calc 61 0-99 Comment: PROCEDURES Procedure Date Ordered Related Diagnosis Body Site LAB NOT BILLED BY [facility] Aug 30, 2016 VENIPUNCT, ROUTINE* Aug 30, 2016 IMMUNIZATIONS No Known Immunizations
--- OUTSIDE RECORDS SUMMARY | 2017-11-18 05:07 | XMS REPORT ---
Author Author VICTORINA OSUNA Organization [employer] Address Unknown Phone Unavailable Care Team Providers Care Mold Yard Supervisor Name Role Phone VICTORINA OSUNA CP Unavailable Allergies No Known Allergies Problems Problem Type Condition Code Onset Dates Condition Status Assessment Low back pain without sciatica, unspecified back pain laterality M54.5 Active Problem Other and unspecified hyperlipidemia 272.4 Active Problem Other chronic pain 338.29 Active Assessment PTSD (post-traumatic stress disorder) F43.10 Active Problem PTSD (post-traumatic stress disorder) F43.10 [...] Start Date End Date Status Dosage Alprazolam [facility] [address]-36 0.5 MG Orally twice a day December 08, 2014 1 tablet Hydrocodone-Acetaminophen [facility] [address]-93 10-325 MG Orally 4 times a day December 08, 2014 1 tablet Results No Known Results Summary Purpose [employer]ClinicalWorks Submission
--- OUTSIDE RECORDS SUMMARY | 2017-11-18 05:07 | XMS REPORT ---
Author Author VICTORINA OSUNA [facility] Address [address] [place] [address] Care Team Providers Care Advisory Software Engineer Name Role Phone VICTORINA OSUNA Unavailable PROBLEMS Type Condition ICD9-CM Code [id number] Code Onset Dates Condition Status SNOMED Code Problem PTSD (post-traumatic stress disorder) F43.10 Active 58870904 Problem Sinusitis, unspecified chronicity, unspecified location J32.9 Active 67005563 Problem Unspecified mood [affective] disorder F39 Active 166669166 Problem Reactive airway disease, unspecified asthma severity, uncomplicated J45.909 Active 578391134328 Problem Mononeuropathy, unspecified G58.9 Active 316337083 Problem Somnolence R40.0 Active 405448745 Problem Dysthymic disorder F34.1 Active 24130147 Problem Medicare annual wellness visit, initial Z00.00 Active 436175476 Problem History of colon polyps Z86.010 Active 584911012 Problem Mixed hyperlipidemia E78.2 Active 615515310 Problem Other chronic pain 338.29 Active 19621571 Problem Benign paroxysmal positional vertigo 386.11 Active 552821438 Problem Low back pain without sciatica, unspecified back pain laterality M54.5 Active 257351865 Problem Other and unspecified hyperlipidemia 272.4 Active 30677796 Problem Encounter for dental examination Z01.20 Active 302884156 Problem Unspecified curvature of spine associated with other condition 737.9 Active 03704443 Problem Bipolar disorder with severe depression F31.4 Active 513368374 ALLERGIES Unknown Allergies SOCIAL HISTORY No smoking Hx information available PLAN OF CARE VITAL SIGNS MEDICATIONS Medication Instructions Dosage Frequency Start Date End Date Duration Status Lyrica 50 mg Orally 2 times a day 1 capsule 12h 18 Jan, 2015 30 days Active Atorvastatin Calcium 40MG TAKE ONE TABLET BY MOUTH ONCE DAILY 30 Active RESULTS No Results PROCEDURES No Known procedures IMMUNIZATIONS No Known Immunizations
--- OUTSIDE RECORDS SUMMARY | 2017-11-18 05:07 | XMS REPORT ---
Author Author MARA DELATORRE Organization [employer] Address Unknown Phone Unavailable Care Team Providers Care Hay Baler Name Role Phone MARA DELATORRE CP Unavailable [...] patient &/family, 30 minutes, established patient CPT-4 73698 Oct 29, 2015 [facility] VISIT MENTAL HEALTH ESTAB PT CPT-4 G0470 Oct 29, 2015 Results No Known Results Summary Purpose [employer] Submission
--- OUTSIDE RECORDS SUMMARY | 2017-11-18 05:07 | XMS REPORT ---
Author Author VICTORINA OSUNA [facility] Address [address] [place] [address] Care Team Providers Care Bilingual Loan Processor Name Role Phone VICTORINA OSUNA Unavailable PROBLEMS Type Condition ICD9-CM Code [id number] Code Onset Dates Condition Status SNOMED Code Problem Bipolar disorder with severe depression F31.4 Active 200899470 Problem Sinusitis, unspecified chronicity, unspecified location J32.9 Active 46014769 Problem Unspecified mood [affective] disorder F39 Active 851076422 Problem Mononeuropathy, unspecified G58.9 Active 317655020 Problem Reactive airway disease, unspecified asthma severity, uncomplicated J45.909 Active 499250583419 Problem Dysthymic disorder F34.1 Active 08322397 Problem Somnolence R40.0 Active 799590612 Problem History of colon polyps Z86.010 Active 563773031 Problem Medicare annual wellness visit, initial Z00.00 Active 239184677 Problem Mixed hyperlipidemia E78.2 Active 638100517 Problem Unspecified curvature of spine associated with other condition 737.9 Active 67848235 Problem Other and unspecified hyperlipidemia 272.4 Active 19369805 Problem Low back pain without sciatica, unspecified back pain laterality M54.5 Active 493865806 Problem Benign paroxysmal positional vertigo 386.11 Active 586129038 Problem Encounter for dental examination Z01.20 Active 550807697 Problem Other chronic pain 338.29 Active 84833420 Problem PTSD (post-traumatic stress disorder) F43.10 Active 30707773 ALLERGIES No Information SOCIAL HISTORY Never Assessed PLAN OF CARE VITAL SIGNS MEDICATIONS Unknown [...] of cataracts, prerenital membrane bialt, photocoagualtion bilaterade (Sebastien/Lidia) Medical History osteopenia: bone density 06-01-10 Medical History Low blood pressure Surgical History cataract removal 2013 Surgical History colonoscopy 2010 Surgical History cholecystectomy Surgical History sinus surgery 2011 Surgical History appendectomy 1974 Surgical History rectocele repair w/ transvaginal mesh Surgical History hysterectomy Surgical History colon resection Surgical History cataract surgery both eyes 03/2015 Hospitalization History surgeries
--- OUTSIDE RECORDS SUMMARY | 2017-11-18 05:07 | XMS REPORT ---
Author Author VICTORINA OSUNA Organization [employer] Address Unknown Phone Unavailable Care Team Providers Care Tool Checker Name Role Phone VICTORINA OSUNA CP Unavailable [...] Start Date End Date Status Dosage Hydrocodone-Acetaminophen [facility] [address]-33 10-325 MG Orally December 08, 2014 1 Tablet by Oral route 4 times per day PRN for pain Alprazolam [facility] [address]-26 0.5 MG December 08, 2014 1 Tablet by Oral route 2 times per day Results No Known Results Summary Purpose eClinicalWorks Submission
--- OUTSIDE RECORDS SUMMARY | 2017-11-18 05:07 | XMS REPORT ---
Author Author FANTASMA GOMEZ Organization [employer] Address Unknown Phone Unavailable Care Team Providers Care Roofing Tile Sorter Name Role Phone FANTASMA GOMEZ CP Unavailable Allergies No Known Allergies Problems [...] Start Date End Date Status Dosage Hydrocodone-Acetaminophen [facility] [address]-64 10-325 MG Orally 4 times a day December 08, 2014 1 tablet Alprazolam [facility] [address]-89 0.5 MG Orally twice a day December 08, 2014 1 tablet Results No Known Results Summary Purpose eClinicalWorks Submission
--- OUTSIDE RECORDS SUMMARY | 2017-11-18 05:07 | XMS REPORT ---
Author Author MARA DELATORRE Organization [employer] Address Unknown Phone Unavailable Care Team Providers Care Filter Press Tender Head Name Role Phone MARA DELATORRE CP Unavailable [...] patient &/family, 45 minutes, established patient CPT-4 45209 Aug 06, 2015 [facility] VISIT MENTAL HEALTH ESTAB PT CPT-4 G0470 Aug 06, 2015 Results No Known Results Summary Purpose eClinicalWorks Submission
--- OUTSIDE RECORDS SUMMARY | 2017-11-18 05:07 | XMS REPORT ---
Author Author VICTORINA OSUNA [facility] Address [address] [place] [address] Care Team Providers Care Railroad Signal And Switch Operator Name Role Phone VICTORINA OSUNA Unavailable PROBLEMS Type Condition ICD9-CM Code [id number] Code Onset Dates Condition Status SNOMED Code Problem Unspecified mood [affective] disorder F39 Active 781297822 Problem Somnolence R40.0 Active 119427049 Problem Sinusitis, unspecified chronicity, unspecified location J32.9 Active 05359065 Problem Other chronic pain G89.29 Active 32265651 Problem Mononeuropathy, unspecified G58.9 Active 767809898 Problem Medicare annual wellness visit, initial Z00.00 Active 216589463 Problem Dysthymic disorder F34.1 Active 51621371 Problem Reactive airway disease, unspecified asthma severity, uncomplicated J45.909 Active 845273634760 Problem History of colon polyps Z86.010 Active 374977822 Problem Low back pain without sciatica, unspecified back pain laterality M54.5 Active 153525777 Problem Encounter for dental examination Z01.20 Active 645399211 Problem Bipolar disorder with severe depression F31.4 Active 276442570 Problem Mixed hyperlipidemia E78.2 Active 586272376 Problem PTSD (post-traumatic stress disorder) F43.10 Active 91625758 ALLERGIES Substance Reaction Event Type Date Status Sulfamethoxazole-Trimethoprim Unknown Drug Allergy Dec, Active Flagyl Unknown Drug Allergy Dec, Active SOCIAL HISTORY Never Assessed PLAN OF CARE Activity Details Follow Up 4 Weeks Reason:physical VITAL SIGNS Height 64 in 2016-12-28 Weight 148 lbs 2016-12-28 Temperature 98.3 degrees Fahrenheit 2016-12-28 Heart Rate 68 bpm 2016-12-28 Respiratory Rate 18 2016-12-28 BMI 25.40 kg/m2 2016-12-28 Blood pressure systolic 90 mmHg 2016-12-28 Blood pressure diastolic 60 mmHg 2016-12-28 MEDICATIONS Medication Instructions Dosage Frequency Start Date End Date Duration Status Ventolin HFA 108MCG/A INHALE ONE PUFF BY MOUTH EVERY 6 HOURS NEEDED 50 Active Senokot 8.6 MG Orally Once a day as needed 1 tablet Active Tylenol 500 mg Oral Once a day 0.5 tab 24h Active Pseudoephedrine HCl 60 MG Orally every 6 hrs 2 tablets as needed 6h 12 Dec 07 days Active Lyrica 50 MG Orally 2 times a day 1 capsule 12h January, 28 days Active Hydrocodone-Acetaminophen 10-325 MG Orally 4 times a day 1 tablet as needed 6h 17 Nov, 2016 28 days Active Refresh Optive 0.5-0.9 % Ophthalmic as needed Active Atorvastatin Calcium 40 MG TAKE ONE TABLET BY MOUTH ONCE DAILY 30 Active Mucus Relief 400 MG Orally every 4 hrs 1 tablet as needed 4h Active Fludrocortisone Acetate 0.1 MG Orally Once a day 1 tablet 24h Dec, Active Loratadine 10 MG Orally Once a day 1 tablet 24h Active Afrin Nasal [place] 0.05 % Nasally Twice a day as needed 2 drops as needed Active Alprazolam 0.5 MG Orally Twice a day 1 tablet as needed 12h Jul, 28 days Active RESULTS No Results PROCEDURES Procedure Date Ordered Result Body Site [facility] VISIT ESTABLISHED PATIENT December 28, 2016 IMMUNIZATIONS No Known Immunizations MEDICAL (GENERAL) [...]
--- OUTSIDE RECORDS SUMMARY | 2017-11-18 05:07 | XMS REPORT ---
Author Author VICTORINA OSUNA Organization [employer] Address Unknown Phone Unavailable Care Team Providers Care Aquatic Biologist Name Role Phone VICTORINA OSUNA CP Unavailable [...] examination Z01.20 Active Medications No Known Medications Results No Known Results Summary Purpose [employer]ClinicalWorks Submission
--- OUTSIDE RECORDS SUMMARY | 2017-11-18 05:07 | XMS REPORT ---
Author Author VICTORINA OSUNA Organization [employer] Address Unknown Phone Unavailable Care Team Providers Care Fixed Wing Aircraft Flight Engineer Name Role Phone VICTORINA OSUNA CP Unavailable [...] Start Date End Date Status Dosage Hydrocodone-Acetaminophen [facility] [address]-25 10-325 MG Orally 4 times a day December 08, 2014 1 tablet Alprazolam [facility] [address]-09 0.5 MG Orally twice a day December 08, 2014 1 tablet Results No Known Results Summary Purpose [employer]ClinicalWorks Submission
--- OUTSIDE RECORDS SUMMARY | 2017-11-18 05:07 | XMS REPORT ---
Author Author VICTORINA OSUNA [facility] Address [address] [place] [address] Care Team Providers Care Low Pressure Firer Name Role Phone VICTORINA OSUNA Unavailable PROBLEMS Type Condition ICD9-CM Code [id number] Code Onset Dates Condition Status SNOMED Code Problem PTSD (post-traumatic stress disorder) F43.10 Active 00755242 Problem Sinusitis, unspecified chronicity, unspecified location J32.9 Active 67008993 Problem Unspecified mood [affective] disorder F39 Active 012587964 Problem Mixed hyperlipidemia E78.2 Active 578584659 Problem Low back pain without sciatica, unspecified back pain laterality M54.5 Active 780422974 Problem Encounter for dental examination Z01.20 Active 338727649 Problem Bipolar disorder with severe depression F31.4 Active 631160468 Problem Mononeuropathy, unspecified G58.9 Active 465093879 Problem Reactive airway disease, unspecified asthma severity, uncomplicated J45.909 Active 702166142323 Problem Somnolence R40.0 Active 796551777 Problem Dysthymic disorder F34.1 Active 41019131 Problem History of colon polyps Z86.010 Active 221952095 Problem Medicare annual wellness visit, initial Z00.00 Active 666801594 ALLERGIES Substance Reaction Event Type Date Status Sulfamethoxazole-Trimethoprim Unknown Drug Allergy Nov, Active Flagyl Unknown Drug Allergy Nov, Active SOCIAL HISTORY Never Assessed PLAN OF CARE Activity Details Follow Up prn Reason: VITAL SIGNS Height 64 in 2016-12-01 Weight 145.6 lbs 2016-12-01 Temperature 99.0 degrees Fahrenheit 2016-12-01 Heart Rate 53 bpm 2016-12-01 Respiratory Rate 16 2016-12-01 Oximetry on room air:96 % 2016-12-01 BMI 24.99 kg/m2 2016-12-01 Blood pressure systolic 92 mmHg 2016-12-01 Blood pressure diastolic 62 mmHg 2016-12-01 MEDICATIONS Medication Instructions Dosage Frequency Start Date End Date Duration Status Refresh Optive 0.5-0.9 % Ophthalmic as needed Active Senokot 8.6 MG Orally Once a day as needed 1 tablet Active ProAir RespiClick 108 (90 Base) MCG/ACT Inhalation every 4 hrs 1 puff as needed 4h 19 Jan, 2016 Active Afrin Nasal Rougon 0.05 % Nasally Twice a day as needed 2 drops as needed Active Tylenol 500 mg Oral Once a day 0.5 tab 24h Active Atorvastatin Calcium 40 MG TAKE ONE TABLET BY MOUTH ONCE DAILY 30 Active Pseudoephedrine HCl 60 MG Orally every 6 hrs 2 tablets as needed 6h 12 Dec 07 days Active Hydrocodone-Acetaminophen 10-325 MG Orally 4 times a day 1 tablet as needed 6h 17 Oct, 2016 28 days Active Colace 100 MG Orally Once a day as needed 1 capsule as needed Active Ventolin HFA 108MCG/A INHALE ONE PUFF BY MOUTH EVERY 6 HOURS NEEDED 50 Active Mucus Relief 400 MG Orally every 4 hrs 1 tablet as needed 4h Active Ciprofloxacin HCl 500 MG Orally Twice a day 1 tablet 12h 13 Nov, 2016 Active Lyrica 50 mg Orally 2 times a day 1 capsule 12h January, 30 days Active Pepcid 20 mg Orally Once a day 1 tablet 24h 30 days Active Loratadine 10 MG Orally Once a day 1 tablet 24h Active Levaquin 500 MG Orally Once a day 1 tablet 24h Aug, 10 day(s) Active Zofran 4 MG Orally every 6 hours as needed 1 tablet Active Alprazolam 0.5 MG Orally Twice a day 1 tablet as needed 12h 28 Jul, 2016 28 days Active RESULTS Name Result Date Reference Range UA LONG DIP (IN HOUSE) 2016-12-01 Lot # [id number] Exp date 07/2017 Clarity clear Color yellow Odor none GLU negative ADRIÁN negative KET negative SG 1.025 BLO negative pH 5.5 Protein negative URO 0.2 NIT negative SAYDA negative Lot # Exp date PROCEDURES Procedure Date Ordered Result Body Site MEASURE BLOOD OXYGEN LEVEL December 01, 2016 URINALYSIS, AUTO, W/O SCOPE December 01, 2016 [facility] VISIT ESTABLISHED PATIENT December 01, 2016 IMMUNIZATIONS No Known Immunizations MEDICAL (GENERAL) [...]
--- OUTSIDE RECORDS SUMMARY | 2017-11-18 05:07 | XMS REPORT ---
Author Author VICTORINA OSUNA [facility] Address [address] [place] [address] Care Team Providers Care Steam Table Worker Name Role Phone VICTORINA OSUNA Unavailable PROBLEMS Type Condition ICD9-CM Code [id number] Code Onset Dates Condition Status SNOMED Code Problem Bipolar disorder with severe depression F31.4 Active 127454763 Problem Sinusitis, unspecified chronicity, unspecified location J32.9 Active 89905697 Problem Unspecified mood [affective] disorder F39 Active 820204148 Problem Mononeuropathy, unspecified G58.9 Active 236374994 Problem Reactive airway disease, unspecified asthma severity, uncomplicated J45.909 Active 421296860739 Problem Dysthymic disorder F34.1 Active 31095044 Problem Somnolence R40.0 Active 303727269 Problem History of colon polyps Z86.010 Active 173385776 Problem Medicare annual wellness visit, initial Z00.00 Active 817626996 Problem Mixed hyperlipidemia E78.2 Active 665862418 Problem Unspecified curvature of spine associated with other condition 737.9 Active 67228190 Problem Other and unspecified hyperlipidemia 272.4 Active 27775828 Problem Low back pain without sciatica, unspecified back pain laterality M54.5 Active 148923600 Problem Benign paroxysmal positional vertigo 386.11 Active 518083682 Problem Encounter for dental examination Z01.20 Active 278371775 Problem Other chronic pain 338.29 Active 20691015 Problem PTSD (post-traumatic stress disorder) F43.10 Active 90898687 ALLERGIES Unknown Allergies SOCIAL HISTORY No smoking Hx information available PLAN OF CARE VITAL SIGNS MEDICATIONS Medication Instructions Dosage Frequency Start Date End Date Duration Status Pseudoephedrine HCl 60 MG Orally every 6 hrs 2 tablets as needed 6h 12 Dec 07 days Active RESULTS No Results PROCEDURES No Known procedures IMMUNIZATIONS No Known Immunizations
--- OUTSIDE RECORDS SUMMARY | 2017-11-18 05:08 | XMS REPORT | Continuity of Care Document ---
Author Author [facility] Organization [facility] Address Unknown Phone Unavailable Allergies Active Description Code Type Severity Reaction Onset Reported/Identified Relationship to Patient Clinical Status Yes Flagyl Drug Allergy N/A N/A 03/05/2013 Yes Sulfa (Sulfonamide Antibiotics) Drug Allergy N/A N/A 03/05/2013 Yes No Known Drug Allergies [id number] Drug Allergy Unknown N/A 10/23/2014 Medications There is no data. Problems Date Dx Coded Attending Type Code Diagnosis Diagnosed By 03/05/2013 311 MO DEPRESS NOS 03/05/2013 311 MO DEPRESS NOS 03/05/2013 691.8 OTHER ATOPIC DERMATITIS AND RELATED CONDITIONS 03/05/2013 698.4 DERMATITIS FACTITIA (ARTEFACTA) 03/05/2013 311 MO DEPRESS NOS 03/05/2013 691.8 OTHER ATOPIC DERMATITIS AND RELATED CONDITIONS 03/05/2013 698.4 DERMATITIS FACTITIA (ARTEFACTA) 03/05/2013 LAVINIA HEBERT MD 311 MO DEPRESS NOS 03/05/2013 LAVINIA HEBERT MD 691.8 OTHER ATOPIC DERMATITIS AND RELATED CONDITIONS 03/05/2013 LAVINIA HEBERT MD 698.4 DERMATITIS FACTITIA (ARTEFACTA) 03/05/2013 ALANNAH OSUNA APRNNDA S 311 MO DEPRESS NOS 03/05/2013 THAO MARKHAM, VICTORINA S 691.8 OTHER ATOPIC DERMATITIS AND RELATED CONDITIONS 03/05/2013 THAO MARKHAM, VICTORINA S 698.4 DERMATITIS FACTITIA (ARTEFACTA) 03/05/2013 ALANNAH OSUNA APRNNDA S 311 MO DEPRESS NOS 03/05/2013 THAO MARKHAM, VICTORINA S 691.8 OTHER ATOPIC DERMATITIS AND RELATED CONDITIONS 03/05/2013 THAO MARKHAM, VICTORINA S 698.4 DERMATITIS FACTITIA (ARTEFACTA) 03/05/2013 JUAN RAMON KRAUSE, MARA Arguello 311 MO DEPRESS NOS 03/05/2013 MARA DELATORRE PHD 691.8 OTHER ATOPIC DERMATITIS AND RELATED CONDITIONS 03/05/2013 MARA DELATORRE PHD 698.4 DERMATITIS FACTITIA (ARTEFACTA) 03/05/2013 VICTORINA OSUNA APRN S 311 MO DEPRESS NOS 03/05/2013 VICTORINA OSUNA APRN S 691.8 OTHER ATOPIC DERMATITIS AND RELATED CONDITIONS 03/05/2013 VICTORINA OSUNA APRN S 698.4 DERMATITIS FACTITIA (ARTEFACTA) 03/05/2013 MARA DELATORRE PHD 311 MO DEPRESS NOS 03/05/2013 MARA DELATORRE PHD 691.8 OTHER ATOPIC DERMATITIS AND RELATED CONDITIONS 03/05/2013 MARA DELATORRE PHD 698.4 DERMATITIS FACTITIA (ARTEFACTA) 03/05/2013 MARILY MARKHAM ANI R 311 MO DEPRESS NOS 03/05/2013 MARILY MARKHAM ANI R 691.8 OTHER ATOPIC DERMATITIS AND RELATED CONDITIONS 03/05/2013 MARY JO CALIXTO APRNINA R 698.4 DERMATITIS FACTITIA (ARTEFACTA) 03/05/2013 MARILY MARKHAM ANI R 311 MO DEPRESS NOS 03/05/2013 MARILY MARKHAM ANI R 691.8 OTHER ATOPIC DERMATITIS AND RELATED CONDITIONS 03/05/2013 MARILY MARKHAM ANI R 698.4 DERMATITIS FACTITIA (ARTEFACTA) 03/05/2013 VICTORINA OSUNA APRN S 311 MO DEPRESS NOS 03/05/2013 VICTORINA OSUNA APRN S 691.8 OTHER ATOPIC DERMATITIS AND RELATED CONDITIONS 03/05/2013 VICTORINA OSUNA APRN S 698.4 DERMATITIS FACTITIA (ARTEFACTA) 03/05/2013 MARA DELATORRE PHD 311 MO DEPRESS NOS 03/05/2013 MARA DELATORRE PHD 691.8 OTHER ATOPIC DERMATITIS AND RELATED CONDITIONS 03/05/2013 MARA DELATORRE PHD 698.4 DERMATITIS FACTITIA (ARTEFACTA) 03/05/2013 WHITE DDS, DULCE MARIA D 311 MO DEPRESS NOS 03/05/2013 WHITE DDS, DULCE MARIA Arguello 691.8 OTHER ATOPIC DERMATITIS AND RELATED CONDITIONS 03/05/2013 WHITE DDS, DULCE MARIA Arguello 698.4 DERMATITIS FACTITIA (ARTEFACTA) 03/05/2013 VICTORINA OSUNA APRN S 311 MO DEPRESS NOS 03/05/2013 VICTORINA OSUNA APRN S 691.8 OTHER ATOPIC DERMATITIS AND RELATED CONDITIONS 03/05/2013 VICTORINA OSUNA APRN 698.4 DERMATITIS FACTITIA (ARTEFACTA) 03/05/2013 LEVY PAUL MD N 311 MO DEPRESS NOS 03/05/2013 LEVY PAUL MD N 691.8 OTHER ATOPIC DERMATITIS AND RELATED CONDITIONS 03/05/2013 LEVY PAUL MD N 698.4 DERMATITIS FACTITIA (ARTEFACTA) 03/05/2013 DÍAZ DO, IONA K 311 MO DEPRESS NOS 03/05/2013 DÍAZ DO, IONA K 691.8 OTHER ATOPIC DERMATITIS AND RELATED CONDITIONS 03/05/2013 DÍAZ DO, IONA K 698.4 DERMATITIS FACTITIA (ARTEFACTA) 03/05/2013 MARA DELATORRE PHD 311 MO DEPRESS NOS 03/05/2013 MARA DELATORRE PHD 691.8 OTHER ATOPIC DERMATITIS AND RELATED CONDITIONS 03/05/2013 MARA DELATORRE PHD 698.4 DERMATITIS FACTITIA (ARTEFACTA) 03/05/2013 MARA DELATORRE PHD 311 MO DEPRESS NOS 03/05/2013 MARA DELATORRE PHD 691.8 OTHER ATOPIC DERMATITIS AND RELATED CONDITIONS 03/05/2013 MARA DELATORRE PHD 698.4 DERMATITIS FACTITIA (ARTEFACTA) 03/05/2013 VICTORINA OSUNA APRN S 311 MO DEPRESS NOS 03/05/2013 VICTORINA OSUNA APRN S 691.8 OTHER ATOPIC DERMATITIS AND RELATED CONDITIONS 03/05/2013 VICTORINA OSUNA APRN S 698.4 DERMATITIS FACTITIA (ARTEFACTA) 03/05/2013 MARA DELATORRE PHD 311 MO DEPRESS NOS 03/05/2013 MARA DELATORRE PHD 691.8 OTHER ATOPIC DERMATITIS AND RELATED CONDITIONS 03/05/2013 MARA DELATORRE PHD 698.4 DERMATITIS FACTITIA (ARTEFACTA) 03/05/2013 MARA DELATORRE PHD 311 MO DEPRESS NOS 03/05/2013 MARA DELATORRE PHD 691.8 OTHER ATOPIC DERMATITIS AND RELATED CONDITIONS 03/05/2013 MARA DELATORRE PHD 698.4 DERMATITIS FACTITIA (ARTEFACTA) 03/05/2013 MARA DELATORRE PHD 311 MO DEPRESS NOS 03/05/2013 MARA DELATORRE PHD 691.8 OTHER ATOPIC DERMATITIS AND RELATED CONDITIONS 03/05/2013 MARA DELATORRE PHD 698.4 DERMATITIS FACTITIA (ARTEFACTA) 03/05/2013 MARA DELATORRE PHD 311 MO DEPRESS NOS 03/05/2013 MARA DELATORRE PHD 691.8 OTHER ATOPIC DERMATITIS AND RELATED CONDITIONS 03/05/2013 MARA DELATORRE PHD 698.4 DERMATITIS FACTITIA (ARTEFACTA) 03/05/2013 MARA DELATORRE PHD 311 MO DEPRESS NOS 03/05/2013 MARA DELATORRE PHD 691.8 OTHER ATOPIC DERMATITIS AND RELATED CONDITIONS 03/05/2013 MARA DELATORRE PHD 698.4 DERMATITIS FACTITIA (ARTEFACTA) 03/05/2013 VICTORINA OSUNA APRN S 311 MO DEPRESS NOS 03/05/2013 VICTORINA OSUNA APRN S 691.8 OTHER ATOPIC DERMATITIS AND RELATED CONDITIONS 03/05/2013 VICTORINA OSUNA APRN S 698.4 DERMATITIS FACTITIA (ARTEFACTA) 03/05/2013 MARA DELATORRE PHD 311 MO DEPRESS NOS 03/05/2013 MARA DELATORRE PHD 691.8 OTHER ATOPIC DERMATITIS AND RELATED CONDITIONS 03/05/2013 MARA DELATORRE PHD 698.4 DERMATITIS FACTITIA (ARTEFACTA) 03/05/2013 MARA DELATORRE PHD 311 MO DEPRESS NOS 03/05/2013 MARA DELATORRE PHD 691.8 OTHER ATOPIC DERMATITIS AND RELATED CONDITIONS 03/05/2013 MARA DELATORRE PHD 698.4 DERMATITIS FACTITIA (ARTEFACTA) 03/05/2013 MARA DELATORRE PHD 311 MO DEPRESS NOS 03/05/2013 MARA DELATORRE PHD 691.8 OTHER ATOPIC DERMATITIS AND RELATED CONDITIONS 03/05/2013 MARA DELATORRE PHD 698.4 DERMATITIS FACTITIA (ARTEFACTA) 03/05/2013 MARA DELATORRE PHD 311 MO DEPRESS NOS 03/05/2013 MARA DELATORRE PHD 691.8 OTHER ATOPIC DERMATITIS AND RELATED CONDITIONS 03/05/2013 MARA DELATORRE PHD 698.4 DERMATITIS FACTITIA (ARTEFACTA) 03/05/2013 MARA DELATORRE PHD 311 MO DEPRESS NOS 03/05/2013 JUAN RAMON KRAUSE, MARA Arguello 691.8 OTHER ATOPIC DERMATITIS AND RELATED CONDITIONS 03/05/2013 MARA DELATORRE PHD 698.4 DERMATITIS FACTITIA (ARTEFACTA) 03/05/2013 MARA DELATORRE PHD 311 MO DEPRESS NOS 03/05/2013 JUAN RAMON KRAUSE, MARA Arguello 691.8 OTHER ATOPIC DERMATITIS AND RELATED CONDITIONS 03/05/2013 MARA DELATORRE PHD 698.4 DERMATITIS FACTITIA (ARTEFACTA) 03/27/2013 737.9 KYPHOSIS/ SCOLIOSIS 03/27/2013 V70.0 EXAM - ROUTINE H&P 03/27/2013 LAVINIA HEBERT MD 737.9 KYPHOSIS/SCOLIOSIS 03/27/2013 LAVINIA HEBERT MD V70.0 EXAM - ROUTINE H&P 03/27/2013 VICTORINA OSUNA APRN S 737.9 KYPHOSIS/SCOLIOSIS 03/27/2013 VICTORINA OSUNA APRN S V70.0 EXAM - ROUTINE H&P 03/27/2013 VICTORINA OSUNA APRN S 737.9 KYPHOSIS/SCOLIOSIS 03/27/2013 THEO OSUNA APRNA S V70.0 EXAM - ROUTINE H&P 03/27/2013 MARA DELATORRE PHD 737.9 KYPHOSIS/SCOLIOSIS 03/27/2013 MARA DELATORRE PHD V70.0 EXAM - ROUTINE H&P 03/27/2013 VICTORINA OSUNA APRN S 737.9 KYPHOSIS/SCOLIOSIS 03/27/2013 THEO OSUNA APRNA S V70.0 EXAM - ROUTINE H&P 03/27/2013 MARA DELATORRE PHD 737.9 KYPHOSIS/SCOLIOSIS 03/27/2013 MARA DELATORRE PHD V70.0 EXAM - ROUTINE H&P 03/27/2013 MARY JO CALIXTO APRNINA R 737.9 KYPHOSIS/SCOLIOSIS 03/27/2013 MARILY MARKHAM ANI R V70.0 EXAM - ROUTINE H&P 03/27/2013 MARILY MARKHAM ANI R 737.9 KYPHOSIS/SCOLIOSIS 03/27/2013 MARILY MARKHAM ANI R V70.0 EXAM - ROUTINE H&P 03/27/2013 THAO DIVERSIFIED CROPS FARMWORKER, VICTORINA S 737.9 KYPHOSIS/SCOLIOSIS 03/27/2013 THEO OSUNA APRNA S V70.0 EXAM - ROUTINE H&P 03/27/2013 JUAN RAMON KRAUSE, MARA Arguello 737.9 KYPHOSIS/SCOLIOSIS 03/27/2013 JUAN RAMON KRAUSE, MARA Arguello V70.0 EXAM - ROUTINE H&P 03/27/2013 WHITE DDS, DULCE MARIA Arguello 737.9 KYPHOSIS/SCOLIOSIS 03/27/2013 WHITE DDS, DULCE MARIA Arguello V70.0 EXAM - ROUTINE H&P 03/27/2013 VICTORINA OSUNA APRN S 737.9 KYPHOSIS/SCOLIOSIS 03/27/2013 VICTORINA OSUNA APRN S V70.0 EXAM - ROUTINE H&P 03/27/2013 LEVY PAUL MD 737.9 KYPHOSIS/SCOLIOSIS 03/27/2013 LEVY PAUL MD V70.0 EXAM - ROUTINE H&P 03/27/2013 DÍAZ DOIONA K 737.9 KYPHOSIS/SCOLIOSIS 03/27/2013 DÍAZ DOIONA K V70.0 EXAM - ROUTINE H&P 03/27/2013 MARA DELATORRE PHD 737.9 KYPHOSIS/SCOLIOSIS 03/27/2013 JUAN RAMON KRAUSE, MARA Arguello V70.0 EXAM - ROUTINE H&P 03/27/2013 MARA DELATORRE PHD 737.9 KYPHOSIS/SCOLIOSIS 03/27/2013 JUAN RAMON KRAUSE, MARA Arguello V70.0 EXAM - ROUTINE H&P 03/27/2013 VICTORINA OSUNA APRN S 737.9 KYPHOSIS/SCOLIOSIS 03/27/2013 VICTORINA OSUNA APRN S V70.0 EXAM - ROUTINE H&P 03/27/2013 MARA DELATORRE PHD 737.9 KYPHOSIS/SCOLIOSIS 03/27/2013 MARA DELATORRE PHD V70.0 EXAM - ROUTINE H&P 03/27/2013 MARA DELATORRE PHD 737.9 KYPHOSIS/SCOLIOSIS 03/27/2013 MARA DELATORRE PHD V70.0 EXAM - ROUTINE H&P 03/27/2013 MARA DELATORRE PHD 737.9 KYPHOSIS/SCOLIOSIS 03/27/2013 JUAN RAMON KRAUSE, MARA Arguello V70.0 EXAM - ROUTINE H&P 03/27/2013 MARA DELATORRE PHD 737.9 KYPHOSIS/SCOLIOSIS 03/27/2013 JONES DELATORRE PHDWIN D V70.0 EXAM - ROUTINE H&P 03/27/2013 JUAN RAMON KRAUSE, MARA Arguello 737.9 KYPHOSIS/SCOLIOSIS 03/27/2013 JUAN RAMON KRAUSE, MARA Arguello V70.0 EXAM - ROUTINE H&P 03/27/2013 VICTORINA OSUNA APRN 737.9 KYPHOSIS/SCOLIOSIS 03/27/2013 VICTORINA OSUNA APRN V70.0 EXAM - ROUTINE H&P 03/27/2013 JUAN RAMON KRAUSE, MARA Arguelol 737.9 KYPHOSIS/SCOLIOSIS 03/27/2013 JUAN RAMON KRAUSE, MARA Arguello V70.0 EXAM - ROUTINE H&P 03/27/2013 JUAN RAMON KRAUSE, MARA Arguello 737.9 KYPHOSIS/SCOLIOSIS 03/27/2013 JUAN RAMON KRAUSE, MARA Arguello V70.0 EXAM - ROUTINE H&P 03/27/2013 JUAN RAMON KRAUSE, MARA Arguello 737.9 KYPHOSIS/SCOLIOSIS 03/27/2013 JUAN RAMON KRAUSE, MARA Arguello V70.0 EXAM - ROUTINE H&P 03/27/2013 JUAN RAMON KRAUSE, MARA Arguello 737.9 KYPHOSIS/SCOLIOSIS 03/27/2013 JUAN RAMON KRAUSE, MARA Arguello V70.0 EXAM - ROUTINE H&P 03/27/2013 JUAN RAMON KRAUSE, MARA Arguello 737.9 KYPHOSIS/SCOLIOSIS 03/27/2013 JUAN RAMON KRAUSE, MARA Arguello V70.0 EXAM - ROUTINE H&P 03/27/2013 JUAN RAMON KRAUSE, MRAA Arguello 737.9 KYPHOSIS/SCOLIOSIS 03/27/2013 JUAN RAMON KRAUSE, MARA Arguello V70.0 EXAM - ROUTINE H&P 10/28/2013 VICTORINA OSUNA APRN S 386.11 BENIGN PAROXYSMAL POSITIONAL VERTIGO 10/28/2013 VICTORINA OSUNA APRN S 478.19 OTHER DISEASES OF NASAL CAVITY AND SINUSES 10/28/2013 VICTORINA OSUNA APRN S 625.6 STRESS INCONTINENCE FEMALE 10/28/2013 MARA DELATORRE PHD 386.11 BENIGN PAROXYSMAL POSITIONAL VERTIGO 10/28/2013 MARA DELATORRE PHD 478.19 OTHER DISEASES OF NASAL CAVITY AND SINUSES 10/28/2013 MARA DELATORRE PHD 625.6 STRESS INCONTINENCE FEMALE 10/28/2013 ANI CALIXTO APRN R 386.11 BENIGN PAROXYSMAL POSITIONAL VERTIGO 10/28/2013 MARILY DIVERSIFIED CROPS FARMWORKER, ANI R 478.19 OTHER DISEASES OF NASAL CAVITY AND SINUSES 10/28/2013 MARILY MARKHAM, ANI R 625.6 STRESS INCONTINENCE FEMALE 10/28/2013 MARILY MARKHAM, ANI R 386.11 BENIGN PAROXYSMAL POSITIONAL VERTIGO 10/28/2013 MARILY MARKHAM, ANI R 478.19 OTHER DISEASES OF NASAL CAVITY AND SINUSES 10/28/2013 MARILY MARKHAM ANI R 625.6 STRESS INCONTINENCE FEMALE 10/28/2013 ALANNAH OSUNA APRNNDA S 386.11 BENIGN PAROXYSMAL POSITIONAL VERTIGO 10/28/2013 ALANNAH OSUNA APRNNDA S 478.19 OTHER DISEASES OF NASAL CAVITY AND SINUSES 10/28/2013 ALANNAH OSUNA APRNNDA S 625.6 STRESS INCONTINENCE FEMALE 10/28/2013 MARA DELATORRE PHD 386.11 BENIGN PAROXYSMAL POSITIONAL VERTIGO 10/28/2013 MARA DELATORRE PHD 478.19 OTHER DISEASES OF NASAL CAVITY AND SINUSES 10/28/2013 JUAN RAMON KRAUSE, MARA Arguello 625.6 STRESS INCONTINENCE FEMALE 10/28/2013 WHITE DDSDULCE MARIA 386.11 BENIGN PAROXYSMAL POSITIONAL VERTIGO 10/28/2013 BELINDA CAMERONSDULCE MARIA 478.19 OTHER DISEASES OF NASAL CAVITY AND SINUSES 10/28/2013 WHITE DDS, DULCE MARIA Arguello 625.6 STRESS INCONTINENCE FEMALE 10/28/2013 ALANNAH OSUNA APRNNDA S 386.11 BENIGN PAROXYSMAL POSITIONAL VERTIGO 10/28/2013 ALANNAH OSUNA APRNNDA S 478.19 OTHER DISEASES OF NASAL CAVITY AND SINUSES 10/28/2013 ALANNAH OSUNA APRNNDA S 625.6 STRESS INCONTINENCE FEMALE 10/28/2013 LEVY PAUL MD N 386.11 BENIGN PAROXYSMAL POSITIONAL VERTIGO 10/28/2013 LEVY PAUL MD N 478.19 OTHER DISEASES OF NASAL CAVITY AND SINUSES 10/28/2013 LEVY PAUL MD N 625.6 STRESS INCONTINENCE FEMALE 10/28/2013 VIOLET DÍAZ DOA K 386.11 BENIGN PAROXYSMAL POSITIONAL VERTIGO 10/28/2013 VIOLET DÍAZ DOA K 478.19 OTHER DISEASES OF NASAL CAVITY AND SINUSES 10/28/2013 ARJUN WREN IONA K 625.6 STRESS INCONTINENCE FEMALE 10/28/2013 MARA DELATORRE PHD 386.11 BENIGN PAROXYSMAL POSITIONAL VERTIGO 10/28/2013 MARA DELATORRE PHD 478.19 OTHER DISEASES OF NASAL CAVITY AND SINUSES 10/28/2013 MARA DELATORRE PHD 625.6 STRESS INCONTINENCE FEMALE 10/28/2013 MARA DELATORRE PHD 386.11 BENIGN PAROXYSMAL POSITIONAL VERTIGO 10/28/2013 MARA DELATORRE PHD 478.19 OTHER DISEASES OF NASAL CAVITY AND SINUSES 10/28/2013 MARA DELATORRE PHD 625.6 STRESS INCONTINENCE FEMALE 10/28/2013 THAO MARKHAM VICTORINA S 386.11 BENIGN PAROXYSMAL POSITIONAL VERTIGO 10/28/2013 THAO MARKHAM VICTORINA S 478.19 OTHER DISEASES OF NASAL CAVITY AND SINUSES 10/28/2013 ALNANAH OSUNA APRNNDA S 625.6 STRESS INCONTINENCE FEMALE 10/28/2013 MARA DELATORRE PHD 386.11 BENIGN PAROXYSMAL POSITIONAL VERTIGO 10/28/2013 MARA DELATORRE PHD 478.19 OTHER DISEASES OF NASAL CAVITY AND SINUSES 10/28/2013 MARA DELATORRE PHD 625.6 STRESS INCONTINENCE FEMALE 10/28/2013 MARA DELATORRE PHD 386.11 BENIGN PAROXYSMAL POSITIONAL VERTIGO 10/28/2013 MARA DELATORRE PHD 478.19 OTHER DISEASES OF NASAL CAVITY AND SINUSES 10/28/2013 MARA DELATORRE PHD 625.6 STRESS INCONTINENCE FEMALE 10/28/2013 MARA DELATORRE PHD 386.11 BENIGN PAROXYSMAL POSITIONAL VERTIGO 10/28/2013 MARA DELATORRE PHD 478.19 OTHER DISEASES OF NASAL CAVITY AND SINUSES 10/28/2013 MARA DELATORRE PHD 625.6 STRESS INCONTINENCE FEMALE 10/28/2013 MARA DELATORRE PHD 386.11 BENIGN PAROXYSMAL POSITIONAL VERTIGO 10/28/2013 MARA DELATORRE PHD 478.19 OTHER DISEASES OF NASAL CAVITY AND SINUSES 10/28/2013 MARA DELATORRE PHD 625.6 STRESS INCONTINENCE FEMALE 10/28/2013 MARA DELATORRE PHD 386.11 BENIGN PAROXYSMAL POSITIONAL VERTIGO 10/28/2013 MARA DELATORRE PHD 478.19 OTHER DISEASES OF NASAL CAVITY AND SINUSES 10/28/2013 MARA DELATORRE PHD 625.6 STRESS INCONTINENCE FEMALE 10/28/2013 ALANNAH OSUNA APRNNDA S 386.11 BENIGN PAROXYSMAL POSITIONAL VERTIGO 10/28/2013 ALANNAH OSUNA APRNNDA S 478.19 OTHER DISEASES OF NASAL CAVITY AND SINUSES 10/28/2013 VICTORINA OSUNA APRN S 625.6 STRESS INCONTINENCE FEMALE 10/28/2013 MARA DELATORRE PHD 386.11 BENIGN PAROXYSMAL POSITIONAL VERTIGO 10/28/2013 MARA DELATORRE PHD 478.19 OTHER DISEASES OF NASAL CAVITY AND SINUSES 10/28/2013 MARA DELATORRE PHD 625.6 STRESS INCONTINENCE FEMALE 10/28/2013 MARA DELATORRE PHD 386.11 BENIGN PAROXYSMAL POSITIONAL VERTIGO 10/28/2013 MARA DELATORRE PHD 478.19 OTHER DISEASES OF NASAL CAVITY AND SINUSES 10/28/2013 MARA DELATORRE PHD 625.6 STRESS INCONTINENCE FEMALE 10/28/2013 MARA DELATORRE PHD 386.11 BENIGN PAROXYSMAL POSITIONAL VERTIGO 10/28/2013 MARA DELATORRE PHD 478.19 OTHER DISEASES OF NASAL CAVITY AND SINUSES 10/28/2013 MARA DELATORRE PHD 625.6 STRESS INCONTINENCE FEMALE 10/28/2013 MARA DELATORRE PHD 386.11 BENIGN PAROXYSMAL POSITIONAL VERTIGO 10/28/2013 MARA DELATORRE PHD 478.19 OTHER DISEASES OF NASAL CAVITY AND SINUSES 10/28/2013 MARA DELATORRE PHD 625.6 STRESS INCONTINENCE FEMALE 10/28/2013 MARA DELATORRE PHD 386.11 BENIGN PAROXYSMAL POSITIONAL VERTIGO 10/28/2013 MARA DELATORRE PHD 478.19 OTHER DISEASES OF NASAL CAVITY AND SINUSES 10/28/2013 MARA DELATORRE PHD 625.6 STRESS INCONTINENCE FEMALE 10/28/2013 MARA DELATORRE PHD 386.11 BENIGN PAROXYSMAL POSITIONAL VERTIGO 10/28/2013 MARA DELATORRE PHD 478.19 OTHER DISEASES OF NASAL CAVITY AND SINUSES 10/28/2013 MARA DELATORRE PHD 625.6 STRESS INCONTINENCE FEMALE 11/23/2013 MARILY DIVERSIFIED CROPS FARMWORKER, ANI R 381.81 EUSTACHIAN TUBE DYSFUNCTION 11/23/2013 MARILY DIVERSIFIED CROPS FARMWORKER, ANI R 461.9 SINUSITIS ACUTE 11/23/2013 MARILY ROBLESN, ANI R 381.81 EUSTACHIAN TUBE DYSFUNCTION 11/23/2013 MARILY ROBLESN, ANI R 461.9 SINUSITIS ACUTE 11/23/2013 ALANNAH OSUNA APRNNDA S 381.81 EUSTACHIAN TUBE DYSFUNCTION 11/23/2013 VICTORINA OSUNA APRN S 461.9 SINUSITIS ACUTE 11/23/2013 MARA DELATORRE PHD 381.81 EUSTACHIAN TUBE DYSFUNCTION 11/23/2013 MARA DELATORRE PHD 461.9 SINUSITIS ACUTE 11/23/2013 DULCE MARIA TREVINO DDS 381.81 EUSTACHIAN TUBE DYSFUNCTION 11/23/2013 DULCE MARIA TREVINO DDS 461.9 SINUSITIS ACUTE 11/23/2013 ALANNAH OSUNA APRNNDA S 381.81 EUSTACHIAN TUBE DYSFUNCTION 11/23/2013 THAO MARKHAM, VICTORINA S 461.9 SINUSITIS ACUTE 11/23/2013 LEVY PAUL MD N 381.81 EUSTACHIAN TUBE DYSFUNCTION 11/23/2013 LEVY PAUL MD 461.9 SINUSITIS ACUTE 11/23/2013 DÍAZ DOVIOLETA K 381.81 EUSTACHIAN TUBE DYSFUNCTION 11/23/2013 DÍAZ DOVIOLETA K 461.9 SINUSITIS ACUTE 11/23/2013 MARA DELATORRE PHD 381.81 EUSTACHIAN TUBE DYSFUNCTION 11/23/2013 MARA DELATORRE PHD 461.9 SINUSITIS ACUTE 11/23/2013 MARA DELATORRE PHD 381.81 EUSTACHIAN TUBE DYSFUNCTION 11/23/2013 MARA DELATORRE PHD 461.9 SINUSITIS ACUTE 11/23/2013 THAO MARKHAM VICTORINA S 381.81 EUSTACHIAN TUBE DYSFUNCTION 11/23/2013 ALANNAH OSUNA APRNNDA S 461.9 SINUSITIS ACUTE 11/23/2013 MARA DELATORRE PHD 381.81 EUSTACHIAN TUBE DYSFUNCTION 11/23/2013 MARA DELATORRE PHD 461.9 SINUSITIS ACUTE 11/23/2013 MARA DELATORRE PHD 381.81 EUSTACHIAN TUBE DYSFUNCTION 11/23/2013 MARA DELATORRE PHD 461.9 SINUSITIS ACUTE 11/23/2013 MARA DELATORRE PHD 381.81 EUSTACHIAN TUBE DYSFUNCTION 11/23/2013 AMRA DELATORRE PHD 461.9 SINUSITIS ACUTE 11/23/2013 MARA DELATORRE PHD 381.81 EUSTACHIAN TUBE DYSFUNCTION 11/23/2013 MARA DELATORRE PHD 461.9 SINUSITIS ACUTE 11/23/2013 MARA DELATORRE PHD 381.81 EUSTACHIAN TUBE DYSFUNCTION 11/23/2013 MARA DELATORRE PHD 461.9 SINUSITIS ACUTE 11/23/2013 VICTORINA OSUNA APRN S 381.81 EUSTACHIAN TUBE DYSFUNCTION 11/23/2013 VICTORINA OSUNA APRN S 461.9 SINUSITIS ACUTE 11/23/2013 MARA DELATORRE PHD 381.81 EUSTACHIAN TUBE DYSFUNCTION 11/23/2013 MARA DELATORRE PHD 461.9 SINUSITIS ACUTE 11/23/2013 MARA DELATORRE PHD 381.81 EUSTACHIAN TUBE DYSFUNCTION 11/23/2013 MARA DELATORRE PHD 461.9 SINUSITIS ACUTE 11/23/2013 MARA DELATORRE PHD 381.81 EUSTACHIAN TUBE DYSFUNCTION 11/23/2013 MARA DELATORRE PHD 461.9 SINUSITIS ACUTE 11/23/2013 MARA DELATORRE PHD 381.81 EUSTACHIAN TUBE DYSFUNCTION 11/23/2013 MRAA DELATORRE PHD 461.9 SINUSITIS ACUTE 11/23/2013 MARA DELATORRE PHD 381.81 EUSTACHIAN TUBE DYSFUNCTION 11/23/2013 MARA DELATORRE PHD 461.9 SINUSITIS ACUTE 11/23/2013 MARA DELATORRE PHD 381.81 EUSTACHIAN TUBE DYSFUNCTION 11/23/2013 MARA DELATORRE PHD 461.9 SINUSITIS ACUTE 12/03/2013 MARILY MARKHAM, ANI R 780.4 DIZZINESS AND VERTIGO 12/03/2013 MARILY MARKHAM ANI R 784.0 HEADACHE 12/03/2013 VICTORINA OSUNA APRN S 780.4 DIZZINESS AND VERTIGO 12/03/2013 THEO OSUNA APRNA S 784.0 HEADACHE 12/03/2013 MARA DELATORRE PHD 780.4 DIZZINESS AND VERTIGO 12/03/2013 MARA DELATORRE PHD 784.0 HEADACHE 12/03/2013 BELINDA DDSDULCE MARIA 780.4 DIZZINESS AND VERTIGO 12/03/2013 WHITE DDSDULCE MARIA 784.0 HEADACHE 12/03/2013 ALANNAH OSUNA APRNNDA S 780.4 DIZZINESS AND VERTIGO 12/03/2013 ALANNAH OSUNA APRNNDA S 784.0 HEADACHE 12/03/2013 LEVY PAUL MD 780.4 DIZZINESS AND VERTIGO 12/03/2013 LEVY PAUL MD N 784.0 HEADACHE 12/03/2013 DÍAZ DOVIOLETA K 780.4 DIZZINESS AND VERTIGO 12/03/2013 DÍAZ DO, IONA K 784.0 HEADACHE 12/03/2013 JUAN RAMON , MARA D 780.4 DIZZINESS AND VERTIGO 12/03/2013 JUAN RAMON PHD, MARA D 784.0 HEADACHE 12/03/2013 JUAN RAMON PHD, MARA Arguello 780.4 DIZZINESS AND VERTIGO 12/03/2013 JUAN RAMON , MARA D 784.0 HEADACHE 12/03/2013 THEO OSUNA APRNA S 780.4 DIZZINESS AND VERTIGO 12/03/2013 ALANNAH OSNUA APRNNDA S 784.0 HEADACHE 12/03/2013 JUAN RAMON PHD, MARA Arguello 780.4 DIZZINESS AND VERTIGO 12/03/2013 JUAN RAMON , MARA D 784.0 HEADACHE 12/03/2013 JUAN RAMON PHD, MARA Arguello 780.4 DIZZINESS AND VERTIGO 12/03/2013 JUAN RAMON PHD, MARA Arguello 784.0 HEADACHE 12/03/2013 JUAN RAMON PHD, MARA Arguello 780.4 DIZZINESS AND VERTIGO 12/03/2013 JUAN RAMON PHD, MARA D 784.0 HEADACHE 12/03/2013 JUAN RAMON PHD, MARA D 780.4 DIZZINESS AND VERTIGO 12/03/2013 JUAN RAMON PHD, MARA D 784.0 HEADACHE 12/03/2013 JUAN RAMON , MARA Arguello 780.4 DIZZINESS AND VERTIGO 12/03/2013 JUAN RAMON PHD, MARA D 784.0 HEADACHE 12/03/2013 THAO MARKHAM VICTORINA S 780.4 DIZZINESS AND VERTIGO 12/03/2013 THAO MARKHAM VICTORINA S 784.0 HEADACHE 12/03/2013 JUAN RAMON MARA KRAUSE 780.4 DIZZINESS AND VERTIGO 12/03/2013 JUAN RAMON PHD, MARA D 784.0 HEADACHE 12/03/2013 JUAN RAMON , MARA D 780.4 DIZZINESS AND VERTIGO 12/03/2013 JUAN RAMON , MARA D 784.0 HEADACHE 12/03/2013 JUAN RAMON , MARA Arguello 780.4 DIZZINESS AND VERTIGO 12/03/2013 JUAN RAMON , MARA D 784.0 HEADACHE 12/03/2013 JUAN RAMON , MARA D 780.4 DIZZINESS AND VERTIGO 12/03/2013 JUAN RAMON , MARA D 784.0 HEADACHE 12/03/2013 JUAN RAMON PHD, MARA D 780.4 DIZZINESS AND VERTIGO 12/03/2013 JUAN RAMON PHD, MARA D 784.0 HEADACHE 12/03/2013 JUAN RAMON PHD, MARA D 780.4 DIZZINESS AND VERTIGO 12/03/2013 JUAN RAMON PHD, MARA D 784.0 HEADACHE 12/11/2013 JUAN RAMON PHD, MARA D 272.4 HYPERLIPIDEMIA 12/11/2013 WHITE DDS, DULCE MARIA D 272.4 HYPERLIPIDEMIA 12/11/2013 VICTORINA OSUNA APRN S 272.4 HYPERLIPIDEMIA 12/11/2013 LEVY PAUL MD 272.4 HYPERLIPIDEMIA 12/11/2013 IONA DÍAZ DO 272.4 HYPERLIPIDEMIA 12/11/2013 JUAN RAMON PHD, MARA D 272.4 HYPERLIPIDEMIA 12/11/2013 JUAN RAMON PHD, MARA D 272.4 HYPERLIPIDEMIA 12/11/2013 ALANNAH OSUNA APRNNDA S 272.4 HYPERLIPIDEMIA 12/11/2013 JUAN RAMON PHD, MARA D 272.4 HYPERLIPIDEMIA 12/11/2013 JUAN RAMON PHD, MARA D 272.4 HYPERLIPIDEMIA 12/11/2013 JUAN RAMON PHD, MARA D 272.4 HYPERLIPIDEMIA 12/11/2013 JUAN RAMON PHD, MARA D 272.4 HYPERLIPIDEMIA 12/11/2013 JUAN RAMON PHD, MARA D 272.4 HYPERLIPIDEMIA 12/11/2013 THEO OSUNA APRNA S 272.4 HYPERLIPIDEMIA 12/11/2013 JUAN RAMON PHD, MARA D 272.4 HYPERLIPIDEMIA 12/11/2013 JUAN RAMON PHD, MARA D 272.4 HYPERLIPIDEMIA 12/11/2013 JUAN RAMON PHD, MARA D 272.4 HYPERLIPIDEMIA 12/11/2013 JUAN RAMON PHD, MARA D 272.4 HYPERLIPIDEMIA 12/11/2013 JUAN RAMON PHD, MARA D 272.4 HYPERLIPIDEMIA 12/11/2013 JUAN RAMON PHD, MARA D 272.4 HYPERLIPIDEMIA 12/19/2013 ALANNAH OSUNA APRNNDA S 466.0 ACUTE BRONCHITIS 12/19/2013 LEVY PAUL MD 466.0 ACUTE BRONCHITIS 12/19/2013 IONA DÍAZ DO 466.0 ACUTE BRONCHITIS 12/19/2013 JUAN RAMON KRAUSE, MARA Arguello 466.0 ACUTE BRONCHITIS 12/19/2013 MARA DELATORRE PHD 466.0 ACUTE BRONCHITIS 12/19/2013 VICTORINA OSUNA APRN S 466.0 ACUTE BRONCHITIS 12/19/2013 JUAN RAMON KRAUSE, MARA Arguello 466.0 ACUTE BRONCHITIS 12/19/2013 JUAN RAMON KRAUSE, MARA Arguello 466.0 ACUTE BRONCHITIS 12/19/2013 JUAN RAMON PHD, MARA Arguello 466.0 ACUTE BRONCHITIS 12/19/2013 JUAN RAMON PHD, MARA Arguello 466.0 ACUTE BRONCHITIS 12/19/2013 JUAN RAMON PHD, MARA Arguello 466.0 ACUTE BRONCHITIS 12/19/2013 VICTORINA OSUNA APRN 466.0 ACUTE BRONCHITIS 12/19/2013 JUAN RAMON KRAUSE, MARA Arguello 466.0 ACUTE BRONCHITIS 12/19/2013 JUAN RAMON KRAUSE, MARA Arguello 466.0 ACUTE BRONCHITIS 12/19/2013 JUAN RAMON PHD, MARA Arguello 466.0 ACUTE BRONCHITIS 12/19/2013 JUAN RAMON PHD, MARA Arguello 466.0 ACUTE BRONCHITIS 12/19/2013 JUAN RAMON PHD, MARA Arguello 466.0 ACUTE BRONCHITIS 12/19/2013 JUAN RAMON PHD, MARA Arguello 466.0 ACUTE BRONCHITIS 12/26/2013 BEVERLY WILD, LEVY Kraft 491.21 BRONCHITIS AECB 12/26/2013 IONA DÍAZ DO 491.21 BRONCHITIS AECB 12/26/2013 JUAN RAMON KRAUSE, MARA Arguello 491.21 BRONCHITIS AECB 12/26/2013 JUAN RAMON KRAUSE, MARA Arguello 491.21 BRONCHITIS AECB 12/26/2013 VICTORINA OSUNA APRN S 491.21 BRONCHITIS AECB 12/26/2013 JUAN RAMON KRAUSE, MARA Arguello 491.21 BRONCHITIS AECB 12/26/2013 JUAN RAMON KRAUSE, MARA Arguello 491.21 BRONCHITIS AECB 12/26/2013 JUAN RAMON KRAUSE, MARA Arguello 491.21 BRONCHITIS AECB 12/26/2013 JUAN RAMON KRAUSE, MARA Arguello 491.21 BRONCHITIS AECB 12/26/2013 JUAN RAMON KRAUSE, MARA Arguello 491.21 BRONCHITIS AECB 12/26/2013 VICTORINA OSUNA APRN S 491.21 BRONCHITIS AECB 12/26/2013 JUAN RAMON KRAUSE, MARA Arguello 491.21 BRONCHITIS AECB 12/26/2013 JUAN RAMON KRAUSE, MARA Arguello 491.21 BRONCHITIS AECB 12/26/2013 MARA DELATORRE PHD 491.21 BRONCHITIS AECB 12/26/2013 JUAN RAMON KRAUSE, MARA Arguello 491.21 BRONCHITIS AECB 12/26/2013 JUAN RAMON KRAUSE, MARA Arguello 491.21 BRONCHITIS AECB 12/26/2013 JUAN RAMON KRAUSE, MARA Arguello 491.21 BRONCHITIS AECB 01/03/2014 IONA DÍAZ DO 786.2 COUGH 01/03/2014 JUAN RAMON KRAUSE, MARA Arguello 786.2 COUGH 01/03/2014 JUAN RAMON KRAUSE, MARA Arguello 786.2 COUGH 01/03/2014 VICTORINA OSUNA APRN S 786.2 COUGH 01/03/2014 JUAN RAMON , MARA Arguello 786.2 COUGH 01/03/2014 JUAN RAMON , MARA Arguello 786.2 COUGH 01/03/2014 JUAN RAMON , MARA Arguello 786.2 COUGH 01/03/2014 JUAN RAMON , MARA Arguello 786.2 COUGH 01/03/2014 JUAN RAMON PHD, MARA Arguello 786.2 COUGH 01/03/2014 VICTORINA OSUNA APRN S 786.2 COUGH 01/03/2014 JUAN RAMON , MARA Arguello 786.2 COUGH 01/03/2014 JUAN RAMON KRAUSE, MARA Arguello 786.2 COUGH 01/03/2014 JUAN RAMON , MARA Arguello 786.2 COUGH 01/03/2014 JUAN RAMON , MARA Arguello 786.2 COUGH 01/03/2014 JUAN RAMON KRAUSE, MARA Arguello 786.2 COUGH 01/03/2014 JUAN RAMON KRAUSE, MARA Arguello 786.2 COUGH 02/27/2014 MARA DELATORRE PHD 112.3 CANDIDIASIS OF SKIN AND NAILS 02/27/2014 MARA DELATORRE PHD 702.19 OTHER SEBORRHEIC KERATOSIS 02/27/2014 MARA DELATORRE PHD 112.3 CANDIDIASIS OF SKIN AND NAILS 02/27/2014 MARA DELATORRE PHD 702.19 OTHER SEBORRHEIC KERATOSIS 02/27/2014 MARA DELATORRE PHD 112.3 CANDIDIASIS OF SKIN AND NAILS 02/27/2014 MARA DELATORRE PHD 702.19 OTHER SEBORRHEIC KERATOSIS 02/27/2014 MARA DELATORRE PHD 112.3 CANDIDIASIS OF SKIN AND NAILS 02/27/2014 MARA DELATORRE PHD 702.19 OTHER SEBORRHEIC KERATOSIS 02/27/2014 MARA DELATORRE PHD 112.3 CANDIDIASIS OF SKIN AND NAILS 02/27/2014 MARA DELATORRE PHD 702.19 OTHER SEBORRHEIC KERATOSIS 02/27/2014 VICTORINA OSUNA APRN S 112.3 CANDIDIASIS OF SKIN AND NAILS 02/27/2014 VICTORINA OSUNA APRN S 702.19 OTHER SEBORRHEIC KERATOSIS 02/27/2014 MARA DELATORRE PHD 112.3 CANDIDIASIS OF SKIN AND NAILS 02/27/2014 MARA DELATORRE PHD 702.19 OTHER SEBORRHEIC KERATOSIS 02/27/2014 MARA DELATORRE PHD 112.3 CANDIDIASIS OF SKIN AND NAILS 02/27/2014 MARA DELATORRE PHD 702.19 OTHER SEBORRHEIC KERATOSIS 02/27/2014 MARA DELATORRE PHD 112.3 CANDIDIASIS OF SKIN AND NAILS 02/27/2014 MARA DELATORRE PHD 702.19 OTHER SEBORRHEIC KERATOSIS 02/27/2014 MARA DELATORRE PHD 112.3 CANDIDIASIS OF SKIN AND NAILS 02/27/2014 MARA DELATORRE PHD 702.19 OTHER SEBORRHEIC KERATOSIS 02/27/2014 MARA DELATORRE PHD 112.3 CANDIDIASIS OF SKIN AND NAILS 02/27/2014 MARA DELATORRE PHD 702.19 OTHER SEBORRHEIC KERATOSIS 02/27/2014 MARA DELATORRE PHD 112.3 CANDIDIASIS OF SKIN AND NAILS 02/27/2014 MARA DELATORRE PHD 702.19 OTHER SEBORRHEIC KERATOSIS 03/26/2014 MARA DELATORRE PHD 300.4 MO DYSTHYMIC DISORDER 03/26/2014 MARA DELATORRE PHD 300.4 MO DYSTHYMIC DISORDER 03/26/2014 MARA DELATORRE PHD 300.4 MO DYSTHYMIC DISORDER 03/26/2014 MARA DELATORRE PHD 300.4 MO DYSTHYMIC DISORDER 03/26/2014 VICTORINA OSUNA APRN 300.4 MO DYSTHYMIC DISORDER 03/26/2014 MARA DELATORRE PHD 300.4 MO DYSTHYMIC DISORDER 03/26/2014 MARA DELATORRE PHD 300.4 MO DYSTHYMIC DISORDER 03/26/2014 MARA DELATORRE PHD 300.4 MO DYSTHYMIC DISORDER 03/26/2014 MARA DELATORRE PHD 300.4 MO DYSTHYMIC DISORDER 03/26/2014 MARA DELATORRE PHD 300.4 MO DYSTHYMIC DISORDER 03/26/2014 MARA DELATORRE PHD 300.4 MO DYSTHYMIC DISORDER 07/03/2014 MARA DELATORRE PHD 296.32 MO DEPRESSIVE RECURRENT MODERATE 07/03/2014 MARA DELATORRE PHD 296.32 MO DEPRESSIVE RECURRENT MODERATE 07/03/2014 MARA DELATORRE PHD 296.32 MO DEPRESSIVE RECURRENT MODERATE 07/03/2014 MAAR DELATORRE PHD 296.32 MO DEPRESSIVE RECURRENT MODERATE 07/03/2014 MARA DELATORRE PHD 296.32 MO DEPRESSIVE RECURRENT MODERATE 07/03/2014 MARA DELATORRE PHD 296.32 MO DEPRESSIVE RECURRENT MODERATE 09/16/2014 MARA DELATORRE PHD 211.3 BENIGN NEOPLASM OF COLON 09/16/2014 MARA DELATORRE PHD 296.31 MO DEPRESSIVE RECURRENT MILD 09/16/2014 MARA DELATORRE PHD 338.29 CHRONIC PAIN 09/16/2014 MARA DELATORRE PHD 211.3 BENIGN NEOPLASM OF COLON 09/16/2014 MARA DELATORRE PHD 296.31 MO DEPRESSIVE RECURRENT MILD 09/16/2014 MARA DELATORRE PHD 338.29 CHRONIC PAIN 09/16/2014 MARA DELATORRE PHD 211.3 BENIGN NEOPLASM OF COLON 09/16/2014 MARA DELATORRE PHD 296.31 MO DEPRESSIVE RECURRENT MILD 09/16/2014 MARA DELATORRE PHD 338.29 CHRONIC PAIN 09/16/2014 MARA DELATORRE PHD 211.3 BENIGN NEOPLASM OF COLON 09/16/2014 MARA DELATORRE PHD 296.31 MO DEPRESSIVE RECURRENT MILD 09/16/2014 MARA DELATORRE PHD 338.29 CHRONIC PAIN 10/23/2014 SCOTT ELIZABETH DO Ot V12.72 10/23/2014 SCOTT ELIZABETH DO Ot V16.0 10/23/2014 SCOTT ELIZABETH DO Ot V76.51 10/27/2014 ANI CALIXTO APRN Ot 780.4 10/27/2014 ANI CALIXTO APRN Ot 784.0 10/27/2014 SCOTT ELIZABETH DO Ot V72.84 01/06/2015 ANIL ELIZABETH DOROUTIE Ot V72.84 01/07/2015 ANIL ELIZABETH DOROUTIE Ot V72.84 11/28/2016 ESTHER LÓPEZ DO, Ot H44.9 UNSPECIFIED DISORDER OF GLOBE 11/28/2016 ESTHER LÓPEZ DO, Ot R11.2 NAUSEA WITH VOMITING, UNSPECIFIED 11/28/2016 ESTHER LÓPEZ DO, Ot R19.7 DIARRHEA, UNSPECIFIED 11/28/2016 ESTHER LÓPEZ DO, Ot Z79.899 OTHER [facility] (CURRENT) DRUG THERAPY 11/29/2016 RENE DO, ESTHER Arguello Ot H44.9 UNSPECIFIED DISORDER OF GLOBE 11/29/2016 RENE DO, ESTHER Arguello Ot R11.2 NAUSEA WITH VOMITING, UNSPECIFIED 11/29/2016 RENE DO, ESTHER Arguello Ot R19.7 DIARRHEA, UNSPECIFIED 11/29/2016 RENE DO, ESTHER Arguello Ot Z79.899 OTHER [facility] (CURRENT) DRUG THERAPY 11/30/2016 RENE DO, ESTHER Arguello Ot H44.9 UNSPECIFIED DISORDER OF GLOBE 11/30/2016 RENE DO, ESTHER Arguello Ot R11.2 NAUSEA WITH VOMITING, UNSPECIFIED 11/30/2016 RENE DO, ESTHER Arguello Ot R19.7 DIARRHEA, UNSPECIFIED 11/30/2016 RENE DO, ESTHER Arguello Ot Z79.899 OTHER [facility] (CURRENT) DRUG THERAPY 02/01/2017 VICTORINA OSUNA Ot Z12.31 ENCNTR SCREEN MAMMOGRAM FOR MALIGNANT NE 02/27/2017 VICTORINA OSUNA Ot Z12.31 ENCNTR SCREEN MAMMOGRAM FOR MALIGNANT NE Procedures Code [place] [address] PSYCH DIAGNOSTIC EVALUATION 03/05/2013 49516 URINE DRUG SCREEN (IN-HOUSE ) 05/02/2013 29651 ROUTINE VENIPUNCTURE 07/26/2013 07018 CBC 07/26/2013 0386724 GFR CALC (RESULT ONLY) 07/26/2013 11839 CMP 07/26/2013 44035 LIPID PANEL 07/26/2013 86081 TSH 07/26/2013 78013 PSYTX PT&/FAMILY 45 MINUTES 10/16/2013 31702 PSYTX PT&/FAMILY 45 MINUTES 11/05/[address] HEAD/BRAIN W/O DYE 12/03/2013 70174 XRAY CERVICAL SPINE, 2 OR 3 VIEWS 12/11/2013 08961 ROUTINE VENIPUNCTURE 12/13/2013 1848581 GFR CALC (RESULT ONLY) 12/13/2013 12494 CMP 12/13/2013 55570 LIPID PANEL 12/13/2013 14450 CRP HS (CARDIO) 12/13/2013 63799 PSYTX PT&/FAMILY 30 MINUTES 12/17/2013 52516 US CAROTID DOPPLER 12/17/2013 84428 OXIMETRY 12/26/2013 51982 ROUTINE VENIPUNCTURE 01/03/2014 47485 XRAY CHEST 2 VIEW 01/03/2014 86891 CBC 01/03/2014 19174 MYCOPLASMA ANTIBODY 01/04/2014 85236 PSYTX PT&/FAMILY 45 MINUTES 01/09/2014 82991 PSYTX PT&/FAMILY 45 MINUTES 01/31/2014 44014 PSYTX PT&/FAMILY 45 MINUTES 02/28/2014 96811 ROUTINE VENIPUNCTURE 03/26/2014 64648 CBC 03/26/2014 3607001 GFR CALC (RESULT ONLY) 03/26/2014 18153 CMP 03/26/2014 88226 LIPID PANEL 03/26/2014 82605 PSYTX PT&/FAMILY 45 MINUTES 03/26/2014 86038 PSYTX PT&/FAMILY 45 MINUTES 04/17/2014 68984 PSYTX PT&/FAMILY 45 MINUTES 05/08/2014 72380 PSYTX PT&/FAMILY 45 MINUTES 06/12/2014 87728 ROUTINE VENIPUNCTURE 06/24/2014 25573 LIPID PANEL 06/24/2014 04048 PSYTX PT&/FAMILY 45 MINUTES 07/03/2014 13064 PSYTX PT&/FAMILY 45 MINUTES 07/09/2014 38770 PSYTX PT&/FAMILY 45 MINUTES 09/16/2014 00332 [employer] 09/25/2014 45757 PSYTX PT&/FAMILY 45 MINUTES 10/21/2014 32531 ROUTINE VENIPUNCTURE 12/24/2014 5898384 GFR CALC (RESULT ONLY) 12/24/2014 58905 CMP 12/24/2014 94831 LIPID PANEL 12/24/2014 22215 PSYTX PT&/FAMILY 45 MINUTES 12/26/2014 Results Test Result Range Complete urinalysis with reflex to culture - 11/28/16 16:30 Urine color determination YELLOW NRG Urine clarity determination CLEAR NRG Urine pH measurement by test strip 6 5-9 Specific gravity of urine by test strip 1.020 1.016- 1.022 Urine protein assay by test strip, semi-quantitative NEGATIVE NEGATIVE Urine glucose detection by automated test strip NEGATIVE NEGATIVE Erythrocytes detection in urine sediment by light microscopy NEGATIVE NEGATIVE Urine ketones detection by automated test strip 1+ NEGATIVE Urine nitrite detection by test strip NEGATIVE NEGATIVE Urine total bilirubin detection by test strip NEGATIVE NEGATIVE Urine urobilinogen measurement by automated test strip (mass/volume) NORMAL NORMAL Urine leukocyte esterase detection by dipstick 2+ NEGATIVE Automated urine sediment erythrocyte count by microscopy (number/high power field) NONE NRG Automated urine sediment leukocyte count by microscopy (number/high power field ) [HPF] NRG Bacteria detection in urine sediment by light microscopy TRACE NRG Squamous epithelial cells detection in urine sediment by light microscopy 0-2 NRG Crystals detection in urine sediment by light microscopy NONE NRG Casts detection in urine sediment by light microscopy NONE NRG Mucus detection in urine sediment by light microscopy NEGATIVE NRG Complete urinalysis with reflex to culture NO NRG Influenza virus A and B antigen detection - 11/28/16 16:33 FLU RESULT NEGATIVE FOR INFLUENZA A AND B ANTIGENS BY IA NRG Complete blood count (CBC) with automated white blood cell (WBC) differential - 11/28/16 17:02 Blood leukocytes automated count (number/volume) 15.9 10*3/uL 4.3-11.0 Blood erythrocytes automated count (number/volume) 4.67 10*6/uL 4.35-5.85 Venous blood hemoglobin measurement (mass/volume) 14.1 g/dL 11.5-16.0 Blood hematocrit (volume fraction) 42 % 35-52 Automated erythrocyte mean corpuscular volume 90 [foz_us] 80-99 Automated erythrocyte mean corpuscular hemoglobin (mass per erythrocyte) 30 pg 25-34 Automated erythrocyte mean corpuscular hemoglobin concentration measurement ( mass/volume) 34 g/dL 32-36 Automated erythrocyte distribution width ratio 12.7 % 10.0-14.5 Automated blood platelet count (count/volume) 158 10*3/uL 130-400 Automated blood platelet mean volume measurement 11.2 [foz_us] 7.4-10.4 Automated blood neutrophils/100 leukocytes 90 % 42-75 Automated blood lymphocytes/100 leukocytes 6 % 12-44 Blood monocytes/100 leukocytes 3 % 0-12 Automated blood eosinophils/100 leukocytes 1 % 0-10 Automated blood basophils/100 leukocytes 0 % 0-10 Blood neutrophils automated count (number/volume) 14.3 10*3 1.8-7.8 Blood lymphocytes automated count (number/volume) 0.9 10*3 1.0-4.0 Blood monocytes automated count (number/volume) 0.5 10*3 0.0-1.0 Automated eosinophil count 0.1 10*3/uL 0.0-0.3 Automated blood basophil count (count/volume) 0.0 10*3/uL 0.0-0.1 Comprehensive metabolic panel - 11/28/16 17:02 Serum or plasma sodium measurement (moles/volume) 144 mmol/L 135-145 Serum or plasma potassium measurement (moles/volume) 4.2 mmol/L 3.6-5.0 Serum or plasma chloride measurement (moles/volume) 111 mmol/L 98-107 Carbon dioxide 22 mmol/L 21-32 Serum or plasma anion gap determination (moles/volume) 11 mmol/L 5-14 Serum or plasma urea nitrogen measurement (mass/volume) 18 mg/dL 7-18 Serum or plasma creatinine measurement (mass/volume) 0.86 mg/dL 0.60-1.30 Serum or plasma urea nitrogen/creatinine mass ratio 21 NRG Serum or plasma creatinine measurement with calculation of estimated glomerular filtration rate > NRG Serum or plasma glucose measurement (mass/volume) 107 mg/dL 70-105 Serum or plasma calcium measurement (mass/volume) 8.9 mg/dL 8.5-10.1 Serum or plasma total bilirubin measurement (mass/volume) 0.8 mg/dL 0.1-1.0 Serum or plasma alkaline phosphatase measurement (enzymatic activity/volume) 74 U/L 40-136 Serum or plasma aspartate aminotransferase measurement (enzymatic activity/ volume) 18 U/L 5-34 Serum or plasma alanine aminotransferase measurement (enzymatic activity/volume ) 14 U/L 0-55 Serum or plasma protein measurement (mass/volume) 6.5 g/dL 6.4-8.2 Serum or plasma albumin measurement (mass/volume) 4.1 g/dL 3.2-4.5 Lipase - 11/28/16 17:02 Lipase 32 U/L 8-78 Blood manual differential performed detection - 11/28/16 17:02 Blood monocytes/100 leukocytes 1 % NRG Manual blood segmented neutrophils/100 leukocytes 88 % NRG Blood band neutrophils/100 leukocytes 4 % NRG Manual blood lymphocytes/100 leukocytes 7 % NRG Manual eosinophils/100 leukocytes in nose 0 % NRG Manual blood basophils/100 leukocytes 0 % NRG Blood erythrocyte morphology finding identification NORMAL NRG Encounters ACCT No. Visit Date/Time Discharge Status Pt. Type Provider Facility Loc./Unit Complaint [id number] 01/31/2017 10:49:00 01/31/2017 23:59:59 CLS Outpatient VICTORINA OSUNA [facility] RAD SCREENING [id number] 11/28/2016 15:43:00 11/28/2016 18:08:00 DIS Emergency ESTHER LÓPEZ DO Jos [facility] ER N/V/D [id number] 10/23/2014 12:25:00 10/23/2014 18:10:00 DIS Outpatient DIANE ELIZABETH DOTIE [facility] SDC [id number] 10/22/2014 05:51:00 10/22/2014 23:59:59 CLS Outpatient GLENNANIL COLLIER DOROUTIE [facility] PREOP [id number] 12/05/2013 11:31:00 12/05/2013 23:59:59 CLS Outpatient ANI CALIXTO APRN [facility] RAD [id number] 11/18/2017 04:59:00 ACT Emergency MONICA JONES MD [facility] ER BLISTER INSIDE MOUTH [id number] 10/23/2014 12:50:00 Document Registration [id number] 12/26/2014 09:03:00 12/26/2014 23:59:59 CLS Outpatient MARA DELATORRE PHD [id number] 11/26/2014 09:05:00 11/26/2014 23:59:59 CLS Outpatient MARA DELATORRE PHD [id number] 10/21/2014 15:00:00 10/21/2014 23:59:59 ANGELINA Outpatient MARA DELATORRE PHD [id number] 09/16/2014 15:52:00 09/16/2014 23:59:59 CLS Outpatient MARA DELATORRE PHD [id number] 07/09/2014 12:58:00 07/09/2014 23:59:59 ANGELINA Outpatient MARA DELATORRE PHD [id number] 07/03/2014 16:04:00 07/03/2014 23:59:59 CLS Outpatient MARA DELATORRE PHD [id number] 06/24/2014 08:58:00 06/24/2014 23:59:59 CLS Outpatient VICTORINA OSUNA APRN [id number] 06/12/2014 14:07:00 06/12/2014 23:59:59 CLS Outpatient MARA DELATORRE PHD [id number] 05/08/2014 13:54:00 05/08/2014 23:59:59 CLS Outpatient MARA DELATORRE PHD [id number] 04/17/2014 12:57:00 04/17/2014 23:59:59 CLS Outpatient MARA DELATORRE PHD [id number] 03/26/2014 09:03:00 03/26/2014 23:59:59 ANGELINA Outpatient MARA DELATORRE PHD [id number] 02/28/2014 13:06:00 02/28/2014 23:59:59 CLS Outpatient MARA DELATORRE PHD [id number] 01/31/2014 14:31:00 01/31/2014 23:59:59 ANGELINA Outpatient MARA DELATORRE PHD [id number] 01/28/2014 00:00:00 01/28/2014 23:59:59 CLS Outpatient VICTORINA OSUNA APRN [id number] 01/09/2014 14:31:00 01/09/2014 23:59:59 CLS Outpatient MARA DELATORRE PHD [id number] 01/03/2014 13:14:00 01/03/2014 23:59:59 CLS Outpatient ARJUN WREN IONA Eunice [id number] 12/26/2013 15:31:00 12/26/2013 23:59:59 CLS Outpatient LEVY PAUL MD [id number] 12/18/2013 14:34:00 12/18/2013 23:59:59 CLS Outpatient DULCE MARIA TREVINO DDS [id number] 12/17/2013 12:39:00 12/17/2013 23:59:59 CLS Outpatient MARA DELATORRE PHD [id number] 12/13/2013 08:46:00 12/13/2013 23:59:59 CLS Outpatient VICTORINA OSUNA APRN [id number] 12/11/2013 10:39:00 12/11/2013 23:59:59 CLS Outpatient VICTORINA OSUNA APRN [id number] 12/03/2013 13:29:00 12/03/2013 23:59:59 CLS Outpatient ANI CALIXTO APRN [id number] 11/23/2013 11:52:00 11/23/2013 23:59:59 CLS Outpatient ANI CALIXTO APRN [id number] 11/05/2013 09:38:00 11/05/2013 23:59:59 CLS Outpatient MARA DELATORRE PHD [id number] 10/28/2013 11:40:00 10/28/2013 23:59:59 CLS Outpatient VICTORINA OSUNA APRN [id number] 10/15/2013 14:29:00 10/15/2013 23:59:59 CLS Outpatient MARA DELATORRE PHD [id number] 07/26/2013 08:36:00 07/26/2013 23:59:59 CLS Outpatient VICTORINA OSUNA APRN [id number] 06/20/2013 16:47:00 06/20/2013 23:59:59 CLS Outpatient VICTORINA OSUNA APRN [id number] 05/02/2013 15:31:00 05/02/2013 23:59:59 CLS Outpatient LAVINIA HEBERT MD [id number] 05/02/2013 15:31:00 Document Registration [id number] 03/05/2013 18:29:00 Document Registration [id number] 03/05/2013 15:02:00 Document Registration
--- NOTE | 2017-11-18 06:42 | ED EENT ---
History of Present Illness General Chief Complaint: Dental Problems/Pain Stated Complaint: BLISTER INSIDE MOUTH Source: patient Exam Limitations: no limitations History of Present Illness Date Seen by Provider: Nov 18, 2017 Time Seen by Provider: 06:37 Initial Comments This is a 72-year-old white female presents with cystlike swelling of the floor the mouth is been present for the last 3 days. Patient saw her dentist or oral surgeon early next week. The patient complains that she cannot wait until then for evaluation. He denies acute dental caries. She denies fever or chill. She denies airway difficulty. She is handling her secretions well. Allergies and Home Medications Allergies Coded Allergies: No Known Drug Allergies (Unverified , 10/23/14) Home Medications Albuterol Sulfate 1 Puff Puff, 1 PUFF IH NEEDED, (Reported) MDI Alprazolam 0.5 Mg Tab.rapdis, 1 EACH PO BID, (Reported) Atorvastatin Calcium 40 Mg Tablet, 40 MG PO DAILY, (Reported) Carboxymethylcellulos/Glycerin 5 Ml Drops, 5 ML OP NEEDED, (Reported) Ciprofloxacin HCl 500 Mg Tablet, 500 MG PO Q12H Prescribed by: ESTHER LÓPEZ on 11/28/161755 Docusate Sodium 100 Mg Cap, 100 MG PO NEEDED, (Reported) Famotidine 20 Mg Tablet, 20 MG PO BID Prescribed by: ESTHER LÓPEZ on 11/28/161755 Hydrocodone Bit/Acetaminophen 1 Each Tablet, 1 EACH PO QID, (Reported) Loratadine 10 Mg Tablet, 10 MG PO DAILY, (Reported) Magnesium Oxide 400 Mg Tablet, 2 EACH PO NEEDED, (Reported) Naproxen Sodium 220 Mg Capsule, 220 MG PO NEEDED, (Reported) Ondansetron HCl 4 Mg Tab, 4 MG PO Q6H PRN for NAUSEA/VOMITING Prescribed by: ESTHER LÓPEZ on 11/28/161755 Oxymetazoline Hcl 15 Ml [place], 2-3 SPRAY NS PER PACKAGE INSTR, (Reported) Pseudoephedrine Hcl 120 Mg Tablet.sa, 120 MG PO DAILY, (Reported) Sennosides 8.6 Mg Tablet, 8.6 MG PO NEEDED, (Reported) Patient Home Medication List Home Medication List Reviewed: Yes Review of Systems Constitutional: No chills, No fever Eyes: Denies Blurred Vision Ears: Denies Dizziness Nose: denies congestion Mouth: see HPI, denies loose teeth, swelling (of the floor of mouth) Throat: denies no symptoms reported Respiratory: No cough Cardiovascular: No chest pain Gastrointestinal: No abdominal pain, No diarrhea, No nausea, No vomiting Musculoskeletal: No back pain Skin: No change in color, No rash Neurological: No Symptoms Reported Hematologic/Lymphatic: No Symptoms Reported Immunological/Allergic: no symptoms reported Past Uylgrec-Shbhqh-Ijsogg Hx Patient Social History 2nd Hand Smoke Exposure: No Recent Foreign Travel: No Contact w/Someone Who Travel: No Recent Hopitalizations: No Immunizations Up To Date Tetanus Booster (TDap): Unknown Date of Pneumonia Vaccine: Oct 23, 2009 Seasonal Allergies Seasonal Allergies: Yes Surgeries Surgeries: Bladder Surgery, Bowel Surgery, Hysterectomy Respiratory Respiratory Disorders: COPD Reviewed Nursing Assessment Reviewed/Agree w Nursing PMH: Yes Physical Exam Vital Signs Vital Signs - First Documented 11/18/17 06:23 Temp 97.5 Pulse 55 Resp 20 B/P (MAP) 151/90 (110) Pulse Ox 99 O2 Delivery Room Air General Appearance: WD/WN, mild distress Eyes: bilateral eye normal inspection Ears: bilateral ear auricle normal Mouth/Throat: other (there appears to be mucous cysts that's contiguous over the anterior aspect of the floor of the mouth anterior to the teeth beneath the tongue. At the patient's insistence an IV with number 11 blade was performed. Clear cystic fluid and a small amount of bleeding spontaneously was expressed.) Neck: non-tender Cardiovascular: regular rate, rhythm Respiratory: chest non-tender Gastrointestinal: normal bowel sounds Neurologic/Psychiatric: no motor/sensory deficits, alert, normal mood/affect Skin: normal color, warm/dry Progress/Results/Core Measures Results/Orders Vital Signs/I&O Vital Sign - Last 12Hours 11/18/17 06:23 Temp 97.5 Pulse 55 Resp 20 B/P (MAP) 151/90 (110) Pulse Ox 99 O2 Delivery Room Air Progress Note : Time: 07:24 Progress Note After I incised the clear mucous cyst of the floor the patient's mouth and observed the patient for approximately 45 minutes the cystic mass decrease in size significantly. Patient felt symptomatically improved. I consult with the dentist at [facility]. It was recommended patient follow through as scheduled with her oral surgeon referral on Monday. I discussed findings with patient and encouraged her to follow up with oral surgery as scheduled Monday. Furthermore I advised the patient to return to emergency Department if any problems occurred. Departure Impression Impression: Primary Impression: Cyst Disposition: HOME, SELF-CARE Condition: Improved Departure-Patient Inst. Decision time for Depature: 07:26 Referrals: IONA DÍAZ DO (PCP) Primary Care Physician VICTORINA OSUNA (Family) Primary Care Physician Add. Discharge Instructions: Follow-up with oral surgeon on Monday as scheduled.. Return if any problems or questions. All discharge instructions reviewed with patient and/or family. Voiced understanding. ANGÉLICA MCGOVERN MD Nov 18, 2017 06:42
[2017-11-18 07:33] VITALS: BP 151/90
== END 2017-11-18 07:29 | disposition home or self-care (01) ==
LOC: EDUNIT# 04:56 → ER 04:59
DX: K09.8 Other cysts of oral region, not elsewhere classified (principal); Z90.710 Acquired absence of both cervix and uterus
CPT/HCPCS: 99282

== ENCOUNTER → 2018-04-23 | Outpatient (CLI) | payer MEDICARE, MEDICAID ==
--- NOTE | 2018-04-23 16:14 | Diagnostic Imaging Report ---
PROCEDURE: MRI lumbar spine. TECHNIQUE: Multiplanar/multisequence MRI of the lumbar spine was performed without contrast. DATE: April 23, 2018. COMPARISON: None. INDICATION: 72-year-old female, chronic low back pain. FINDINGS: There is grade 1 anterolisthesis of L4 on L5 measuring approximately 4 mm. There is no visualized pars interarticularis defect. The additional alignment of the lumbar spine is otherwise unremarkable. There is no evidence of a diffuse marrow infiltrating or replacing process. There is no compression deformity or other fracture. There is no concerning focal bone lesion. The visualized cord and conus medullaris is unremarkable and terminates at the L1 level. There is very mild disc height loss at L4-L5. L1-L2: There is no disc bulge. There are mild bilateral facet degenerative changes without ligamentum flavum hypertrophy. There is no foraminal narrowing. There is no spinal canal stenosis. L2-L3: There is mild diffuse disc bulge. There are mild bilateral facet degenerative changes without ligamentum flavum hypertrophy. There is mild right foraminal narrowing. There is no spinal canal stenosis. L3-L4: There is diffuse disc bulge. There are advanced facet degenerative changes with ligamentum flavum hypertrophy. There is mild left and moderate to severe right foraminal narrowing. There is prominence of the posterior epidural fat. There is severe spinal canal stenosis. L4-L5: There is diffuse disc bulge. There are advanced bilateral facet degenerative changes with ligamentum flavum hypertrophy. There is mild to moderate left and moderate right foraminal narrowing. There is severe narrowing of the right lateral recess. There is moderate narrowing of the left lateral recess. There is no high-grade spinal canal stenosis. L5-S1: There is no disc bulge. There are mild bilateral facet degenerative changes without prominent ligamentum flavum hypertrophy. There is moderate bilateral foraminal narrowing. There is no spinal canal stenosis. IMPRESSION: 1. Grade 1 anterolisthesis of L4 on L5 relating to facet degenerative changes. 2. Multilevel disc and facet degenerative changes of the lumbar spine as detailed level by level above. Dictated by: Dictated on workstation # [id number]
== END ==
LOC: 4THo 13:56
PROVIDERS: ATTEND Nurse Practitioner Community Health
DX: M54.5 Low back pain (principal); M51.36 Other intervertebral disc degeneration, lumbar region; M51.37 Other intervertebral disc degeneration, lumbosacral region
CPT/HCPCS: 72148

== ENCOUNTER 2018-05-25 15:26 | Outpatient (CLI) | payer MEDICARE, MEDICAID ==
[~2018-05-25] VITALS: Ht 162.6 cm; Wt 62.1 kg
[2018-05-25] MEDS ORDERED: CARB15DR2 OU (15:41)
[2018-05-25] MEDS ORDERED: OXYM30SP NS (15:41)
[2018-05-25] MEDS ORDERED: RT-ALBUINH IH (15:41)
[2018-05-25] MEDS ORDERED: DOCU100T2 PO (15:41)
[2018-05-25] MEDS ORDERED: HYDR-3820 PO (15:41)
[2018-05-25] MEDS ORDERED: ATOR40TA70 PO (15:41)
[2018-05-25] MEDS ORDERED: SENN8.6T68 PO (15:41)
[2018-05-25] MEDS ORDERED: ALPR0.254 PO (15:41)
[2018-05-25] MEDS ORDERED: PSEU120T17 PO (15:41)
[2018-05-25] MEDS ORDERED: LORA10TA7 PO (15:41)
== END 2018-05-25 16:05 | disposition home or self-care (01) ==
LOC: PREOP 15:26
PROVIDERS: ATTEND Surgery
DX: Z01.818 Encounter for other preprocedural examination (principal)

== ENCOUNTER 2018-05-30 09:37 | Day surgery (SDC) | payer MEDICARE, MEDICAID ==
[~2018-05-30] VITALS: Ht 162.6 cm; Wt 62.1 kg
[~2018-05-30 09:37] MED LIST changes: +ALPR0.254 PO; +CARB15DR2 OU; +DOCU100T2 PO; +HYDR-3820 PO; +PSEU120T17 PO; +SENN8.6T68 PO
[2018-05-30 09:55] VITALS: BP 102/64
[2018-05-30] MEDS ORDERED: LACTATED RINGERS 1,000 ML IV STA (09:56)
[2018-05-30] MEDS ORDERED: LACTATED RINGERS 1,000 ML IV ONE (10:16)
--- NOTE | 2018-05-30 11:23 | Progress Note-Pre Operative ---
Pre-Operative Progress Note H&P Reviewed The H&P was reviewed, patient examined and no changes noted. Time Seen by Provider: 11:19 Date H&P Reviewed: May 30, 2018 Time H&P Reviewed: 11:17 Pre-Operative Diagnosis: rectal bleed, constipation, abdominal pain WANDA RICHARD DO May 30, 2018 11:23
[2018-05-30] MEDS ORDERED: PROPOFOL INJECTION 50 ML IV ONE (12:51)
--- NOTE | 2018-05-30 14:13 | Anesthesia-General Post-Op ---
MAC Patient Condition Mental Status/LOC: Same as Preop Cardiovascular: Satisfactory Nausea/Vomiting: Absent Respiratory: Satisfactory Pain: Controlled Complications: Absent Post Op Complications Complications None Follow Up Care/Instructions Patient Instructions None needed. Anesthesiology Discharge Order Discharge Order Patient is doing well, no complaints, stable vital signs, no apparent adverse anesthesia problems. No complications reported per nursing. EDENILSON ELLIS CRNA May 30, 2018 14:13
--- NOTE | 2018-05-30 14:24 | Progress Note-Post Operative ---
Post-Operative Progess Note Surgeon (s)/Contour Stitcher (s) Surgeon WANDA RICHARD DO Contour Stitcher: none Pre-Operative Diagnosis rectal bleed, constipation, abdominal pain Post-Operative Diagnosis Polyps Diverticula Internal hemorrhoids Procedure & Operative Findings Date of Procedure 05/30/18 Procedure Performed/Findings Colon with snare Anesthesia Type IV sedation by RETAIL GREETER Estimated Blood Loss Estimated blood loss (mL): scant Specimens/Packing Specimens Removed Transverse Colon polyp Base of Asc colon polyp Ascending colon polyp x 2 WANDA RICHARD DO May 30, 2018 14:24
--- NOTE | 2018-05-30 14:25 | Endoscopy Discharge Instruct ---
Endo Procedure/Findings Findings 1.: Polyp 2.: Diverticulosis 3.: Internal Hemorrhoids Discharge Instructions - Activity: You might feel a little sleepy until tomorrow. This is due to the medicine you received to relax you. Until tomorrow, you should: NOT drive a car, operate machinery or power tools. NOT drink any alcoholic beverages. NOT make any important decisions or sign importortant papers. Do not return to work until tomorrow, unless otherwise instructed. Resume previous activities tomorrow. Diet: Start by taking liquids. If you tolerate liquids, advance to solid food. make appointment for one week Notify Physician - If you experience excessive bleeding, unusual abdominal pain, fever, or chest pain, contact your doctor immediately. Follow-Up: - I have received and understand the above instructions and will call my doctor if I have any further questions. Patient Signature Date Nurse Signature Other (Relationship) WANDA RICHARD DO May 30, 2018 14:25
[2018-05-30 14:50] VITALS: BP 105/74
[2018-05-30 15:10] VITALS: BP 109/71
[2018-05-30 15:15] VITALS: BP 109/71
--- NOTE | 2018-05-30 21:48 | OPERATIVE REPORT ---
DATE OF SERVICE: 05/30/2018 PREOPERATIVE DIAGNOSIS: Rectal bleed, abdominal pain, constipation. POSTOPERATIVE DIAGNOSES: 1. Colon polyps. 2. Diverticula. 3. Internal hemorrhoids. PROCEDURE: Colonoscopy with snare polypectomy. SURGEON: Sebastian Acevedo DO. CARCASS SPLITTER: None. ANESTHESIA: IV sedation by the CONTROL DIRECTOR. SPECIMEN: One polyp from the transverse colon and then 2 large polyps in the ascending colon as well as the base of one of the polyps from the ascending colon. BLOOD LOSS: Scant. FLUIDS: Per anesthesia. POSTOPERATIVE CONDITION: Stable. INDICATION FOR PROCEDURE: The patient is a 72-year-old female who has been having a little bit of rectal bleeding and some abdominal pain as well as constipation and she needs a colonoscopy to work it up. FINDINGS: The patient had 1 polyp in the transverse colon and then 2 large polyps in the ascending colon just outside the cecum. She also had some diverticula, but they were mostly in the transverse colon, not really in the sigmoid or descending colon. She also had some minimal internal hemorrhoids. PROCEDURE NOTE: After informed consent was obtained, the patient was brought to the endoscopy suite and placed in the bed in left lateral decubitus position. She was administered IV sedation by the CONTROL DIRECTOR who then monitored her vital signs the entire time, heart rate, blood pressure and pulse ox and the scope was inserted, pushed in. There was a little bit of fecal material of mostly liquid. On the way in, in the transverse colon, saw some diverticula, took a picture and then saw a polyp, did a snare polypectomy of the transverse colon polyp and then continued down to the cecum. Just outside the cecum and the ascending colon, saw 2 large polyps, took a picture of this and then removed these with a snare polypectomy. Able to suction part of it up and then actually had to go in and grasp with a Meek Net and pulled the scope all the way out and then pushed the scope back in to do the colonoscopy to look on the way out. Pushed into the cecum, noted the ileocecal valve and took a picture of appendiceal orifice and then slowly withdrew the scope insufflating to look circumferentially at the beal looking at the cecum up the ascending colon to the hepatic flexure. Right around the hepatic flexure, saw a couple of small hyperplastic polyps. Continued down the transverse colon to the splenic flexure, then into the descending colon down into the sigmoid and finally in the rectum, retroflexed the rectal vault, saw some minimal internal hemorrhoids, took a picture of this and removed the scope. The patient tolerated the procedure and she was recovered in the endoscopy suite. Job ID: [id number] DocumentID: [id number] Dictated Date: 05/30/2018 14:22:33 Sieve Grader Tender Date: 05/30/2018 21:47:45 Dictated By: SEBASTIAN ACEVEDO DO
== END 2018-05-30 15:15 | disposition home or self-care (01) ==
LOC: ENDO 09:37
PROVIDERS: ATTEND Surgery
DX: D12.3 Benign neoplasm of transverse colon (principal); D12.2 Benign neoplasm of ascending colon; K57.30 Diverticulosis of large intestine without perforation or abscess without bleeding; K64.8 Other hemorrhoids; J45.909 Unspecified asthma, uncomplicated; K21.9 Gastro-esophageal reflux disease without esophagitis; F17.210 Nicotine dependence, cigarettes, uncomplicated; Z79.899 Other long term (current) drug therapy
CPT/HCPCS: 88305

== ENCOUNTER 2018-06-20 19:09 | Emergency (ER) | payer MEDICARE, MEDICAID ==
[~2018-06-20] VITALS: Ht 162.6 cm; Wt 62.6 kg
[2018-06-20 19:43] LABS: BASOPHILS % (AUTO) 0 % (0-10); EOSINOPHILS # (AUTO) 0.3 10^3/uL (0.0-0.3); EOSINOPHILS % (AUTO) 4 % (0-10); HEMATOCRIT 37 % (35-52); HEMOGLOBIN 12.3 G/DL (11.5-16.0); LYMPHOCYTES # (AUTO) 2.4 X 10^3 (1.0-4.0); LYMPHOCYTES % (AUTO) 32 % (12-44); MEAN CORPUSCULAR HEMOGLOBIN 31 PG (25-34); MEAN CORPUSCULAR HGB CONC 33 G/DL (32-36); MEAN CORPUSCULAR VOLUME 92 FL (80-99); MEAN PLATELET VOLUME 11.3 FL (7.4-10.4); MONOCYTES # (AUTO) 0.3 X 10^3 (0.0-1.0); MONOCYTES % (AUTO) 3 % (0-12); NEUTROPHILS # (AUTO) 4.6 X 10^3 (1.8-7.8); NEUTROPHILS % (AUTO) 60 % (42-75); PLATELET COUNT 169 10^3/uL (130-400); RED BLOOD COUNT 4.02 10^6/uL (4.35-5.85); RED CELL DISTRIBUTION WIDTH 12.7 % (10.0-14.5); WHITE BLOOD COUNT 7.6 10^3/uL (4.3-11.0)
[2018-06-20 19:57] LABS: ALANINE AMINOTRANSFERASE 13 U/L (0-55); ALBUMIN 4.2 GM/DL (3.2-4.5); ALKALINE PHOSPHATASE 66 U/L (40-136); AMYLASE 54 U/L (25-125); BILIRUBIN,TOTAL 0.8 MG/DL (0.1-1.0); BUN/CREATININE RATIO 16; CALCIUM 9.5 MG/DL (8.5-10.1); CARBON DIOXIDE 24 MMOL/L (21-32); CHLORIDE 108 MMOL/L (98-107); CREATININE SERUM 0.91 MG/DL (0.60-1.30); GFR ESTIMATED > 60; GLUCOSE 166 MG/DL (70-105); LIPASE 23 U/L (8-78); POTASSIUM 3.5 MMOL/L (3.6-5.0); SODIUM 141 MMOL/L (135-145); TOTAL PROTEIN 6.6 GM/DL (6.4-8.2)
[2018-06-20 20:13] LABS: BILIRUBIN,URINE NEGATIVE (NEGATIVE); CLARITY,URINE CLEAR; COLOR,URINE YELLOW; GLUCOSE, URINE (UA) NEGATIVE (NEGATIVE); KETONES,URINE NEGATIVE (NEGATIVE); LEUKOCYTE ESTERASE ,URINE 3+ (NEGATIVE); NITRITE,URINE NEGATIVE (NEGATIVE); PH,URINE 5 (5-9); PROTEIN,URINE NEGATIVE (NEGATIVE); UROBILINOGEN,URINE NORMAL (NORMAL)
[2018-06-20 20:23] LABS: BACTERIA,URINE FEW /HPF
--- NOTE | 2018-06-20 21:07 | Diagnostic Imaging Report ---
PROCEDURE: CT abdomen and pelvis with contrast. TECHNIQUE: Multiple contiguous axial images were obtained through the abdomen and pelvis after administration of intravenous contrast. INDICATION: Abdominal pain and dehydration. No comparison available. FINDINGS: The lung bases appear clear. There is no pleural or pericardial effusion. The liver demonstrates no evidence of a focal intrahepatic abnormality. Patient is status post cholecystectomy. There is no abnormal biliary dilatation. The pancreas demonstrates atrophy of the pancreatic head and uncinate process. There is no ductal dilatation or focal abnormality. The spleen appears normal in size. There is no adrenal mass. The kidneys enhance normally and appear nonobstructed. The stomach appears to be mildly distended. The duodenal sweep is unremarkable. There are no findings of abnormal small bowel dilation. The descending left colon and sigmoid colon appear thickened with some increased mucosal enhancement. There is no significant adjacent focal inflammation within the pericolonic fat. There is a large degree of stool demonstrated within the cecum. There are no findings of abnormal small bowel dilation. There is no free air, free fluid or evidence of abscess. There are no pathologically enlarged abdominal or pelvic lymph nodes. The patient appears to be status post hysterectomy. There are atherosclerotic calcifications present within a normal caliber aorta. There are degenerative features present within the lumbar spine with a grade 1 anterolisthesis of L4 on L5. There is no acute or suspicious osseous abnormality. IMPRESSION: 1. There is no evidence to suggest abnormal small or large bowel dilation or findings of obstruction. 2. There is a slightly thickened appearance demonstrated of the descending left colon and the sigmoid which may be due to nondistention but there also is a suggestion that maybe some slight increased mucosal enhancement. In the appropriate setting, colitis is not completely excluded though there is no significant adjacent inflammation within the pericolonic fat. 3. There is a large degree of stool present within the cecum and ascending colon. 4. Previous cholecystectomy without biliary dilatation. Pancreatic head and uncinate fatty replacement and atrophy. 5. No free air, free fluid, abscess or adenopathy. 6. Previous hysterectomy. 7. Atherosclerosis and degenerative disc disease. Dictated by: Dictated on workstation # [id number]
[2018-06-20] MEDS ORDERED: CEPH-507 PO (21:15)
--- NOTE | 2018-06-20 21:15 | ED Abdominal Pain ---
General Chief Complaint: Abdominal/GI Problems Stated Complaint: SEVERE ABD PAIN Source of Information: Patient Exam Limitations: No Limitations History of Present Illness Date Seen by Provider: Jun 20, 2018 Time Seen by Provider: 19:20 Initial Comments Patient is a 72-year-old female who presents to the emergency room with complaints of left lower quadrant abdominal pain. She reports that she's had constipation for the past few days but had a very large bowel movement just prior to calling EMS. She has a history of diverticulitis, colon resection, and constipation and is concerned that she may have ruptured her bowel. She denies fevers, reports that her abdominal pain has improved in route to the hospital. Timing/Duration: Resolved Prior to Arrival Severity/Quality: Cramping Location: LLQ Radiation: No Radiation Modifying Factors: Improves With Defecating Allergies and Home Medications Allergies Coded Allergies: Sulfa (Sulfonamide Antibiotics) (Verified Allergy, Unknown, blisters, ) dicyclomine (Verified Allergy, Unknown, 05/25/18) metronidazole (Verified Allergy, Unknown, HIVES, 05/25/18) Home Medications Albuterol Sulfate 1 Puff Puff, 2 PUFF IH Q4H PRN for WHEEZING, (Reported) 1 PUFF = 90 MCG Alprazolam 0.25 Mg Tablet, 0.25 MG PO BID, (Reported) Atorvastatin Calcium 40 Mg Tablet, 40 MG PO DAILY, (Reported) Carboxymethylcellulos/Glycerin 15 Ml Drops, 2 ML OU Q4H PRN for DRY EYES, ( Reported) Cephalexin 500 Mg Capsule, 500 MG PO BID Prescribed by: SYBIL YU on 06/20/182114 Docusate Sodium 100 Mg Tablet, 100 MG PO DAILY, (Reported) Hydrocodone/Acetaminophen 1 Each Tablet, 1 EACH PO 6 per day, (Reported) Loratadine 10 Mg Tablet, 10 MG PO DAILY, (Reported) Oxymetazoline HCl 30 Ml [place], 2 SPRAY NS BID, (Reported) Pseudoephedrine HCl 120 Mg Tablet.er, 120 MG PO DAILY, (Reported) Sennosides 8.6 Mg Tablet, 8.6 MG PO DAILY, (Reported) Patient Home Medication List Home Medication List Reviewed: Yes Review of Systems Review of Systems Constitutional: see HPI; No chills, No fever Gastrointestinal: See HPI, Abdominal Pain, Constipated (resolved prior to arrival) All Other Systems Reviewed Negative Unless Noted: Yes Past Npnwhay-Krqsyd-Kvswmd Hx Past Med/Social Hx: Reviewed Nursing Past Med/Soc Hx Patient Social History Type Used: Smokeless Tobacco 2nd Hand Smoke Exposure: No Recent Foreign Travel: No Contact w/Someone Who Travel: No Recent Hopitalizations: No Immunizations Up To Date Tetanus Booster (TDap): Unknown Date of Pneumonia Vaccine: Oct 23, 2009 Seasonal Allergies Seasonal Allergies: Yes Past Medical History Surgeries: Yes Appendectomy, Bladder Surgery, Bowel Surgery, Gallbladder, Hysterectomy Respiratory: Yes (asthma) Asthma Cardiac: No Neurological: No Gastrointestinal: No Chronic Constipation, Diverticulosis Musculoskeletal: Yes (arthritis) Arthritis, Chronic Back Pain Endocrine: No Skin Family Medical History Reviewed Nursing Family Hx Physical Exam Vital Signs Vital Signs - First Documented 06/20/18 19:09 Temp 97.7 Pulse 55 Resp 17 B/P (MAP) 129/66 (87) Pulse Ox 100 Capillary Refill : Height/Weight/BMI Height: 5'4.00" Weight: 137lbs. 0.0oz. [id number]; 23.5 BMI Method:Stated General Appearance: WD/WN, no apparent distress Neck: non-tender, full range of motion, supple, normal inspection Respiratory: chest non-tender, lungs clear, normal breath sounds, no respiratory distress, no accessory muscle use Cardiovascular: normal peripheral pulses, regular rate, rhythm, no edema, no gallop, no JVD, no murmur Gastrointestinal: normal bowel sounds, soft, no organomegaly, no pulsatile mass , tenderness (slight LLQ tenderness.) Extremities: normal range of motion, non-tender, normal inspection, no pedal edema, no calf tenderness, normal capillary refill, pelvis stable, other ( normal distal puses normal capillary refill.) Neurologic/Psychiatric: alert, normal mood/affect, oriented x 3 Skin: normal color, warm/dry Progress/Results/Core Measures Results/Orders Lab Results Laboratory Tests Test 06/20/18 19:10 06/20/18 19:14 06/20/18 20:06 Range/Units Lab Scanned Report Referred Lab Report [id number] White Blood Count 7.6 4.3-11.0 10^3/uL Red Blood Count 4.02 L 4.35-5.85 10^6/uL Hemoglobin 12.3 11.5-16.0 G/DL Hematocrit 37 35-52 % Mean Corpuscular Volume 92 80-99 FL Mean Corpuscular Hemoglobin 31 25-34 PG Mean Corpuscular Hemoglobin Concent 33 32-36 G/DL Red Cell Distribution Width 12.7 10.0-14.5 % Platelet Count 169 130-400 10^3/uL Mean Platelet Volume 11.3 H 7.4-10.4 FL Neutrophils (%) (Auto) 60 42-75 % Lymphocytes (%) (Auto) 32 12-44 % Monocytes (%) (Auto) 3 0-12 % Eosinophils (%) (Auto) 4 0-10 % Basophils (%) (Auto) 0 0-10 % Neutrophils # (Auto) 4.6 1.8-7.8 X 10^3 Lymphocytes # (Auto) 2.4 1.0-4.0 X 10^3 Monocytes # (Auto) 0.3 0.0-1.0 X 10^3 Eosinophils # (Auto) 0.3 0.0-0.3 10^3/uL Basophils # (Auto) 0.0 0.0-0.1 10^3/uL Sodium Level 141 135-145 MMOL/L Potassium Level 3.5 L 3.6-5.0 MMOL/L Chloride Level 108 H 98-107 MMOL/L Carbon Dioxide Level 24 21-32 MMOL/L Anion Gap 9 5-14 MMOL/L Blood Urea Nitrogen 15 7-18 MG/DL Creatinine 0.91 0.60-1.30 MG/DL Estimat Glomerular Filtration Rate > 60 BUN/Creatinine Ratio 16 Glucose Level 166 H 70-105 MG/DL Calcium Level 9.5 8.5-10.1 MG/DL Corrected Calcium 9.3 8.5-10.1 MG/DL Total Bilirubin 0.8 0.1-1.0 MG/DL Aspartate Amino Transf (AST/SGOT) 17 5-34 U/L Alanine Aminotransferase (ALT/SGPT) 13 0-55 U/L Alkaline Phosphatase 66 40-136 U/L Total Protein 6.6 6.4-8.2 GM/DL Albumin 4.2 3.2-4.5 GM/DL Amylase Level 54 25-125 U/L Lipase 23 8-78 U/L Urine Color YELLOW Urine Clarity CLEAR Urine pH 5 5-9 Urine Specific [place] 1.025 H 1.016-1.022 Urine Protein NEGATIVE NEGATIVE Urine Glucose (UA) NEGATIVE NEGATIVE Urine Ketones NEGATIVE NEGATIVE Urine Nitrite NEGATIVE NEGATIVE Urine Bilirubin NEGATIVE NEGATIVE Urine Urobilinogen NORMAL NORMAL MG/DL Urine Leukocyte Esterase 3+ H NEGATIVE Urine RBC (Auto) NEGATIVE NEGATIVE Urine RBC NONE /HPF Urine WBC 10-25 H /HPF Urine Squamous Epithelial Cells 2-5 /HPF Urine Crystals NONE /LPF Urine Bacteria FEW H /HPF Urine Casts NONE /LPF Urine Mucus NEGATIVE /LPF Urine Culture Indicated YES Micro Results Microbiology 06/20/18 Urine Culture - Final, Complete NO GROWTH My Orders Orders - SYBIL YU Comprehensive Metabolic Panel (06/20/18 19:34) Lipase (06/20/18 19:34) Amylase (06/20/18 19:34) Ua Culture If Indicated (06/20/18 19:34) Saline Lock/Iv-Start (06/20/18 19:34) Cbc With Automated Diff (06/20/18 19:34) Ct Abdomen/Pelvis W (06/20/18 19:34) Urine Culture (06/20/18 20:06) Vital Signs/I&O 06/20/18 06/20/18 19:09 21:31 Temp 97.7 97.7 Pulse 55 55 Resp 17 17 B/P (MAP) 129/66 (87) 129/66 (87) Pulse Ox 100 100 Progress Progress Note : Time: 21:10 Progress Note I have seen and evaluated the patient. I have informed her of her imaging studies and laboratory findings. She agrees with plan of care, use of antibiotics, return precautions were given. Departure Impression Primary Impression: Urinary tract infection Disposition: HOME, SELF-CARE Condition: Stable/Unchanged Departure-Patient Inst. Decision time for Depature: 21:14 Referrals: [facility] (PCP/Family) Primary Care Physician Patient Instructions: Acute Abdomen (Belly Pain), Adult (DC), Urinary Tract Infection, Adult (DC) Add. Discharge Instructions: Take medications as directed. Ensure that her drinking plenty of clear liquids like water. Continue your home regimen of stool softeners and laxatives for constipation. Follow up with [facility] within 1 week for recheck. Return back to the emergency room for any worsening symptoms or concerns as needed. All discharge instructions reviewed with patient and/or family. Voiced understanding. Scripts Cephalexin (Keflex) 500 Mg Capsule 500 MG PO BID for 7 Days, #14 CAP Prov: SYBIL YU 06/20/18 SYBIL YU Jun 20, 2018 21:15
[2018-06-20 21:31] VITALS: BP 129/66
== END 2018-06-20 21:33 | disposition home or self-care (01) ==
LOC: EDUNIT# 19:09 → ER 19:10
DX: N39.0 Urinary tract infection, site not specified (principal); J45.909 Unspecified asthma, uncomplicated; Z87.19 Personal history of other diseases of the digestive system; Z88.2 Allergy status to sulfonamides; Z88.8 Allergy status to other drugs, medicaments and biological substances; Z79.51 Long term (current) use of inhaled steroids; Z90.89 Acquired absence of other organs; Z90.710 Acquired absence of both cervix and uterus
CPT/HCPCS: 36415; 74177; 80053; 81000; 82150; 83690; 85025; 87088

== ENCOUNTER → 2021-04-20 | Outpatient (CLI) | payer MEDICARE, MEDICAID ==
[~2021-04-20] MED LIST changes: +ACHYD1T PO; +ALPR.25T PO; -ALPR0.254 PO; +CEPH-507 PO; -HYDR-3820 PO; +OXYM30SP25 NS
--- NOTE | 2021-04-20 15:47 | Diagnostic Imaging Report ---
INDICATION: Postmenopausal screening COMPARISON: Baseline FINDINGS: AP Spine L1-L4: [BMD (g/cm2): 0.907] [T-Score: -2.4] [Z-Score: -0.7] [BMD Previous: NA] [BMD % Change: NA] LT Hip Neck: [BMD (g/cm2): 0.808] [T-Score: -1.7] [Z-Score: 0.3] LT Hip Total: [BMD (g/cm2):0.829] [T-Score:-1.4] [Z-Score: 0.4] [BMD Previous: NA] [BMD % Change: NA] RT Hip Neck: [BMD (g/cm2):0.781] [T-Score:-1.8] [Z-Score:0.1] RT Hip Total: [BMD (g/cm2):0.764] [T-score:-1.9] [Z-Score:-0.2] [BMD Previous:NA] [BMD % Change:NA] *Indicates significant change from prior examination based on 95% confidence level. World Health Organization criteria for BMD interpretation classify patients as Normal (T-score at or above -1.0), Osteopenic (T-score between -1.0 and -2.5) or Osteoporotic (T-score at or below -2.5). LIMITATIONS AND MODIFICATION: None. FRACTURE RISK (FRAX SCORE): The ten year probability of (%): Major Osteoporotic Fracture: [13.7] Hip Fracture: [3.5] IMPRESSION: 1. Osteopenia (Low bone mass). 2. Baseline examination. 3. See below National Osteoporosis Foundation guidelines on when to potentially initiate pharmacologic therapy. Based on the National Osteoporosis Foundation Guidelines, pharmacologic treatment should be initiated in any of the following, unless clinical conditions suggest otherwise: * Any patient with prior fragility fracture of the hip or vertebrae. A spine fracture indicates 5X risk for subsequent spine fracture and 2X risk for subsequent hip fracture. * Osteoporosis (T-score <-2.5). * Postmenopausal women and men age 50 and older with low bone mass/osteopenia (T-score between -1.0 and -2.5) by DXA and 10-year major osteoporotic fracture greater than 20% or a 10-year probability of hip fracture greater than 3%. These fracture risks are supplied above in the FRAX score, if applicable. * Clinician judgement and/or patient preferences may indicate treatment for people with 10-year fracture probabilities above or below these levels. Dictated by: Dictated on workstation # [id number]
== END ==
LOC: RAD 14:30
PROVIDERS: ATTEND Nurse Practitioner Family
DX: Z13.820 Encounter for screening for osteoporosis (principal); M85.80 Other specified disorders of bone density and structure, unspecified site; Z78.0 Asymptomatic menopausal state
CPT/HCPCS: 77080

== ENCOUNTER 2021-07-19 05:41 | Outpatient (CLI) | payer MEDICARE, MEDICAID ==
[~2021-07-19] VITALS: Ht 162.6 cm; Wt 64.9 kg
[2021-07-19] MEDS ORDERED: PREG150C PO (14:57)
== END 2021-07-19 16:30 | disposition home or self-care (01) ==
LOC: PREOP 05:41
PROVIDERS: ATTEND Surgery
DX: Z01.818 Encounter for other preprocedural examination (principal)

== ENCOUNTER 2021-07-26 10:08 | Day surgery (SDC) | payer MEDICARE, MEDICAID ==
[~2021-07-26] VITALS: Ht 162 cm; Wt 65.2 kg
[2021-07-26] VITALS (7 sets, daily range): BP systolic 76–134; BP diastolic 48–68
[~2021-07-26 10:08] MED LIST changes: +PREG150C PO
[2021-07-26] MEDS ORDERED: LACTATED RINGERS 1,000 ML IV STA (10:10)
[2021-07-26] MEDS ORDERED: LACTATED RINGERS 1,000 ML IV ONE (10:12)
[2021-07-26] MEDS ORDERED: PROPOFOL INJECTION 50 ML IV ONE (11:50)
--- NOTE | 2021-07-26 12:26 | Progress Note-Post Operative ---
Post-Operative Progess Note Surgeon (s)/Planting Supervisor (s) Surgeon WANDA RICHARD DO Planting Supervisor: TATE MolinaII Pre-Operative Diagnosis hx of polyps Post-Operative Diagnosis Polyps int hemorrhoids Procedure & Operative Findings Date of Procedure 07/26/21 Procedure Performed/Findings Colonoscopy with snare polypectomy Colonoscopy with hot bx PROCEDURE NOTE: After informed consent was obtained, the patient was brought to the endoscopy suite, placed in bed in left lateral decubitus position. She was administered IV sedation by the APPARATUS LINEMAN who then monitored her vitals the entire time, heart rate, blood pressure and pulse ox and the scope was inserted, pushed all the way to about [address] in in the Descending colon saw a flat polyp; able to take it out completely with two bites of hot biopsy. Once in the cecum, took a picture of appendiceal orifice and able to get into the terminal ileum (took a picture in the terminal ileum). Then slowly withdrew the scope insufflating to look circumferentially at the beal; starting in the cecum and just outside the cecal cap found two polyps. One was large and elected to remove it completely with a hot snare and a small one next to it was removed with hot biopsy. Continue up the ascending colon to the hepatic flexure, then down the transverse colon to the splenic flexure, into the descending colon and down into the sigmoid. Saw another small polyp in the Sigmoid; able to remove with hot biopsy. Finally into the rectal vault and retroflexed the scope. Took picture of the internal hemorrhoids. The patient tolerated the procedure. She was recovered in endoscopy suite. Anesthesia Type IV sedation by APPARATUS LINEMAN Estimated Blood Loss Estimated blood loss (mL): scant Specimens/Packing Specimens Removed desc colon polyp cecal polyp x 2 sigmoid polyp WANDA RICHARD DO Jul 26, 2021 12:26
--- NOTE | 2021-07-26 12:27 | Endoscopy Discharge Instruct ---
Endo Procedure/Findings Findings 1.: Polyp 2.: Internal Hemorrhoids Discharge Instructions - Activity: You might feel a little sleepy until tomorrow. This is due to the medicine you received to relax you. Until tomorrow, you should: NOT drive a car, operate machinery or power tools. NOT drink any alcoholic beverages. NOT make any important decisions or sign importortant papers. Do not return to work until tomorrow, unless otherwise instructed. Resume previous activities tomorrow. Diet: Start by taking liquids. If you tolerate liquids, advance to solid food. 1.: Colonscopy in 3 years Notify Physician - If you experience excessive bleeding, unusual abdominal pain, fever, or chest pain, contact your doctor immediately. WANDA RICHARD DO Jul 26, 2021 12:27
--- NOTE | 2021-07-26 12:45 | Anesthesia-General Post-Op ---
MAC Patient Condition Mental Status/LOC: Same as Preop Cardiovascular: Satisfactory Nausea/Vomiting: Absent Respiratory: Satisfactory Pain: Controlled Complications: Absent Post Op Complications Complications None Follow Up Care/Instructions Patient Instructions None needed. Anesthesiology Discharge Order Discharge Order Patient is doing well, no complaints, stable vital signs, no apparent adverse anesthesia problems. No complications reported per nursing. LOLA BANUELOS CRNA Jul 26, 2021 12:45
== END 2021-07-26 13:50 | disposition home or self-care (01) ==
LOC: ENDO 10:08
PROVIDERS: ATTEND Surgery
DX: Z12.11 Encounter for screening for malignant neoplasm of colon (principal); D12.4 Benign neoplasm of descending colon; D12.0 Benign neoplasm of cecum; K64.8 Other hemorrhoids; J44.9 Chronic obstructive pulmonary disease, unspecified; M19.90 Unspecified osteoarthritis, unspecified site; G89.29 Other chronic pain; M54.50 Low back pain, unspecified; M79.642 Pain in left hand; M79.641 Pain in right hand; M25.562 Pain in left knee; M25.561 Pain in right knee; Z79.899 Other long term (current) drug therapy; Z87.891 Personal history of nicotine dependence; Z79.891 Long term (current) use of opiate analgesic; Z79.1 Long term (current) use of non-steroidal anti-inflammatories (NSAID); Z90.49 Acquired absence of other specified parts of digestive tract
CPT/HCPCS: 88305